=== PATIENT | female | born 1975 | race Caucasian/White ===

== ENCOUNTER 2024-07-09 12:04 | Emergency (ER) | payer OTHER, SELFPAY ==
--- NOTE | ~2024-07-09 | CT_ITS ---
CT brain wo con Ordering provider: Mendez Chan MD History: 49 years Female with . headache . Comparison: None. Technique: CT of the head without contrast. Radiation reduction technique utilized.The dose-length product was 605.33 mGy-cm. FINDINGS: BRAIN PARENCHYMA AND CSF SPACES: No midline shift, mass effect or hemorrhage. The brain parenchyma a nd CSF spaces are otherwise normal. VISUALIZED PARANASAL SINUSES: Well aerated. MASTOIDS: Well aerated. BONES: The bones appear intact. SOFT TISSUES: Visualized nasopharynx is normal. Superficial soft tissues are normal. IMPRESSION: No acute intracranial findings. Reviewed, dictated and finalized at location A.
[2024-07-09 12:18] VITALS: BP 107/42; PULSE 78; RESP 18; O2SAT 100
--- OUTSIDE RECORDS SUMMARY | 2024-07-09 13:39 | XMS_ITS | Encounter Summary ---
[facility] Address [address] [place] [address] Phone Care Team Providers Care Baker Chef Name Role Phone Identified, No Provider Primary Care Provider Un available Reason for Visit * Reason Onset Date Comments Appointment Request 10/04/2020 Encounter Details Date Type Department Care Team ([facility] Contact Info) Description 10/04/2020 Telephone Gen Surgery [facility] [address] [place] [address] Provider, Unknown Appointment Request Social History Tobacco Use Types Packs/Day Years Used Date Smoking Tobacco: Never Smokeless Tobacco: Never Comments No Sex and Gender Information Value Date Recorded Sex Assigned at Not on file Legal Sex Female 4:02 PM CDT Gender Identity Not on file Sexual Orientation Not on file COVID-19 Exposure Response Date Recorded In the last month, have you been in contact with someone who was confirmed or suspected to have Coronavirus / COVID-19? No / Unsure 09/26/2020 8:29 PM CDT documented as of this encounter Miscellaneous Notes * Telephone Encounter - Dixie Pearson - 10/09/2020 9:06 AM CDT Called Pt to schedule hospital F/U. Pt says that she currently isn't feeling well will have to talklater. * Telephone Encounter - Aníbal Peyton - 10/04/2020 4:11 PM CDT ----- Message from Sobia Balbuena RN sent at 10/04/2020 3:58 PM CDT ----- Regarding: Order for JENNIFER MOCTEZUMA Order Specific Information Order: GENERAL SURGERY FOLLOW UP [Custom: [id number]] Order #: [id number]: 1 Priority: Routine Class: Normal(N) Full name of provider to make appointment with: -> Any general surgeron Type of appointment -> Hospital follow up When does appointment need to be scheduled -> as needed Reason for test/appointment -> s/p discharge from hospital for tx of gastritis. Follow up with general surgery for outpatient needs documented in this encounter Plan of Treatment Not on file documented as of this encounter Visit Diagnoses Not on filedocumented in this encounter Additional Health Concerns Infection Onset Date Last Indicated Resolved Time MRSA Comment:Added from external infection. Source: [facility]. 07/11/2023 documented as of this encounter Care Teams Baker Chef Relationship Specialty Start Date End Date Identified, No Provider PCP - General 09/26/20 documented as of this encounter
--- OUTSIDE RECORDS SUMMARY | 2024-07-09 13:39 | XMS_ITS ---
Author Organization [facility] Address [address] [place] [address] Care Team Providers Care Supervisor Shop Name Role Phone ThanhSunil dc Primary Care Provider Peggy Juares Medications Medication SIG (Take, Route, Fr equency, Duration) Notes Start Date End Date Status traZODone HCl 50 MG 1 tablet at bedtime as needed Orally NIGHTLY for 28 days Activ e Problems Problem Type SNOMED Code ICD Code Onset Dates Problem Status W/U Status Risk Notes Problem Insomnia (560461779) Insomnia (G47.00) Active confirmed Encounters Encounter Location Date Provider Diagnosis [facility] [address] [place] [address] 07/05/2024 Peggy Juares Insomnia G47.00 Assessments Encounter Date Diagnosis (ICD Code) Assessment Notes Treatment Notes Treatment Clinical Notes Section Notes 07/05/2024 Insomnia (ICD-10 - G47.00) Plan Of Treatment Medication Medication Name Sig Start Date Stop Date Notes traZODone HCl 50 MG 1 tablet at bedtime as needed Orally NIGHTLY for 28 days Next Appt Details Provider Name:Brad sarkar, 07/11/2024 02:00:00 PM, [address], [place], [address], Provider Name:Eriberto Ruiz , 07/17/2024 02:00:00 PM, [address], [place], [address], Progress Notes * Jennifer MATHIS RDOB: 6 (49 yo F)Acc No.[id number]:07/05/2024 UNLOCKED PROGRESS NOTE Patient: Jennifer JUNG :1975 A ge:49 Y S ex:Female Address:[address] [place] [address], [id number] * Refills Refill traZODone HCl Tablet, 50 MG, Orally, 28, 1 tablet at bedtime as needed, NIGHTLY, 28 days, Refills=0 Subjective: * Chief Complaints: * * Medical History: * Surgical History: * Hospitalization/Major Diagno stic Procedure: * Medications: Objective: * Vitals: * Physical Examination: Assessment: * Assessment: 1. I nsomnia - G47.00 (Primary) Plan: * Treatment: * Procedure Codes: * * Date:
--- OUTSIDE RECORDS SUMMARY | 2024-07-09 13:39 | XMS_ITS | Encounter Summary ---
Author Organization [facility] Address [address] [place] [address] Phone Care Team Providers Care Eight Section Blower Name Role Phone Provider, Not On File Primary Care Provider Unav ailable Encounter Details Date Type Department Care Team (Late st Contact Info) Description 05/22/2024 Results Follow-Up [facility] [address] [place] [address] Culture, Urine Social History Tobacco Use Types Packs/Day Years Used Date Smoking Tobacco: Never Smokeless Tobacco: Never Alcohol Use Standard Drinks/Week Comments Never 0 (1 standard drink = 0.6 oz pur e alcohol) Comments Unknown Sex and Gender Information Value Date Recorded Sex Assigned at Female 05/09/2024 7:10 PM CDT Legal Sex Female 3:14 PM CDT Gender Identity Female 05/10/2024 4:27 PM CDT Sexual Orientation Not on file documented as of this encounter Plan of Treatment Not on file documented as of this encounter Visit Diagnoses Not on filedocumented in this encounter Additional Health Concerns Infection Onset Date Last Indicated Resolved Time MRSA 05/20/2024 05/20/2024 documented as of this encounter Care Teams Eight Section Blower Relationship Specialty Start Date End Date Provider, Not On File [place] PCP - General 10/13/13 documented as of this encounter
--- OUTSIDE RECORDS SUMMARY | 2024-07-09 13:39 | XMS_ITS | Clinical Summary ---
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 12 Tablet Active Additional Information Patient not taking.Reported on 05/19/2024 Encounters Date Type Department Care Team Description 05/22/2024 Results Follow-Up [facility] Emergency Dept. Services [address] [place] [id number] Herlinda Sanchez LPN Culture, Urine 05/19/2024 11:16 PM CDT - 05/20/2024 10:22 AM CDT Emergency [facility] Emergency Dept. Services [address] [place] [id number] Makayla Carlisle MD Methamphetamine abuse Discharge Disposition: Dis/Trans to Psych Hosp/Psych Unit 05/19/2024 Travel 05/10/2024 3:38 PM CDT - 05/10/2024 6:00 PM CDT Emergency [facility] Emergency Dept. Services [address] [place] [address] Makayla Carlisle MD Chronic right shoulder pain Discharge Disposition: Discharged to home or Selfcare 05/10/2024 Travel 05/09/2024 7:10 PM CDT - 05/09/2024 8:31 PM CDT Emergency [facility] Emergency Dept. Services [address] [place] [address] Discharge Disposition: Left Against Medical Advice 05/09/2024 Travel from Last 3 Months Social History Tobacco Use Types Packs/Day Years Used Date Smoking Tobacco: Never Smokeless Tobacco: Never Tobacco Cessation:Counseling Given: Not Answered Alcohol Use Standard Drinks/Week Comments Never 0 (1 standard drink = 0.6 oz pur e alcohol) Comments No Sex and Gender Information Value Date Recorded Sex Assigned at Female 05/09/2024 7:10 PM CDT Legal Sex Female 3:14 PM CDT Gender Identity Female 05/10/2024 4:27 PM CDT Sexual Orientation Not on file Last Filed Vital Signs Vital Sign Reading Time Taken Comments Blood Pressure 102/62 05/20/2024 10:20 AM CDT Pulse 69 05/20/2024 10:20 AM CDT Temperature 36.6 C (97.8 F) 05/20/2024 8:47 AM CDT Respiratory Rate 16 05/20/2024 10:20 AM CDT Oxygen Saturation 98% 05/20/2024 10:20 AM CDT Inhaled Oxygen Concentration - - Weight 52.2 kg (115 lb) 05/19/2024 9:36 PM CDT Height 162.6 cm (5' 4 ) 05/19/2024 9:36 PM CDT Body Mass Index 19.74 05/19/2024 9:36 PM CDT Plan of Treatment Health Maintenance Due Date Last Done Comments Mammogram 1975 Hepatitis B Immunization (1 of 3 - 19+ 3-dose series) 01/28/1995 Discussion re Starting/Frequ ency of Mammograms 2016 Colonoscopy 01/28/2021 SARS-COV-2 Immunization () 10/17/2023 Colorectal Cancer Screening 03/18/2024 Influenza Immunization (Seas on Ended) 2024 03/01/2013 Immunochemical Fecal Occult Blood 01/28/2026 025 Respiratory Syncytial Virus (RSV) Immunization (Adult) (1 - 1-dose 75+ series) 01/28/2051 DTaP/Tdap/Td Immunization Discontinued 08/30/2022 TdaP Immunization Completed 08/30/2022 Hepatitis C Virus (HCV) Screening Completed 024 Meningococcal Immunization (ACWY) Aged Out No longer eligible based on patient's age to complete this topic Pneumococcal Immunization Combined Aged Out No longer eligible based on patient's age to complete this topic Rotavirus Immunization Aged Out No lo nger eligible based on patient's age to complete this topic Procedures Procedure Name Priority Date/Time Associated Diagnosis Comments EKG 12 LEAD STAT 05/20/2024 12:53 AM CDT QUINN TOP TUBE STAT 05/20/2024 12:19 AM CDT BLUE TOP TUBE STAT 05/20/2024 12:19 AM CDT CBC WITH AUTO DIFFERENTIAL STAT 05/20/2024 12:19 AM CDT EXTRA TUBES STAT 05/20/2024 12:19 AM CDT SALICYLATE LEVEL STAT 05/20/2024 12:1 9 AM CDT ACETAMINOPHEN (TYLENOL) STAT 05/20/2024 12:19 AM CDT THYROID STIMULATING HORMONE (TSH) STAT 05/20/2024 12:19 AM CDT MAGNESIUM (MG) STAT 05/20/2024 12:19 AM CDT ETHYL ALCOHOL (ETHANOL) STAT 05/20/2024 12:19 AM CDT CMP (COMPREHENSIVE METABOLIC PANEL) STAT 05/20/2024 12:19 AM CDT COMPLETE BLOOD COUNT (CBC) WITH DIFF STAT 05/20/2024 12:19 AM CDT ID NOW COVID 19 ELDA ([facility]) STAT 05/20/2024 12:13 AM CDT URINALYSIS (UA) MICROSCOPIC ONLY STAT 05/20/2024 12:05 AM CDT URINALYSIS REFLEX IF INDICATED BY ABNORMAL RESULTS STAT 05/20/2024 12:05 AM CDT URINE DRUG SCREEN STAT 05/20/2024 12: 05 AM CDT CULTURE, URINE STAT 05/20/2024 12:05 AM CDT XR LUMBAR SPINE 2 OR 3 VIEWS STAT 05/10/2024 4:38 PM CDT XR SHOULDER COMPLETE RIGHT STAT 05/10/2024 4:34 PM CDT URINALYSIS (UA) MICROSCOPIC ONLY STAT 05/10/2024 4:33 PM CDT URINE DRUG SCREEN STAT 05/10/2024 4:3 3 PM CDT URINALYSIS REFLEX IF INDICATED BY ABNORMAL RESULTS STAT 05/10/2024 4:33 PM CDT from Last 3 Months Results * EKG 12 LEAD (05/20/2024 12:53 AM CDT) 05/20/2024 12:5 3 AM CDT Impressions EXTERNAL EKG - 05/21/2024 2:16 [place] [address] Test Date: 2024-05-20 Pat Name: JENNIFER MOCTEZUMA Department: Room: [facility] Gender: F Diet Attendant: MIS : 1975 Requested By: MAKAYLA CARLISLE Order Number: [id number] Reading MD: Cruz Steven MD Measurements Intervals Edwards Rate: 60 P: 84 NH: 141 QRS: 74 QRSD: 94 T: 63 QT: 441 QTc: 441 Interpretive Statements Sinus rhythm Consider left ventricular hypertrophy Electronically Signed On 05-21-2024 14:12:43 CDT by Cruz Steven MD Narrative Procedure Note Cruz Steven MD - 05/21/2024 IMPRESSION: [facility] [address] [place] [address] Test Date: 2024-05-20 Pat Name: JENNIFER MOCTEZUMA Department: Room: [facility] Gender: F Diet Attendant: TB : 1975 Requested By: MAKAYLA CARLISLE Order Number: [id number] Reading MD: Cruz Steven MD Measurements Intervals Edwards Rate: 60 P: 84 NH: 141 QRS: 74 QRSD: 94 T: 63 QT: 441 QTc: 441 Interpretive Statements Sinus rhythm Consider left ventricular hypertrophy Electronically Signed On 05-21-2024 14:12:43 CDT by Cruz Steven MD us Makayla Carlisle MD IMG ECG ORDERABLES Final Resul t Performing Organization Address [facility] de Phone Number EXTERNAL EKG * Quinn Top Tube (05/20/2024 12:19 AM CDT) Blood No Phlebotomy Charged / Unknown 05/20/2024 12:19 AM CDT 05/20/2024 12:22 AM CDT us Makayla Carlisle MD CHEMISTRY ORDERABLES Final Res ult Performing Organization Address [facility]/[place] Co de Phone Number [facility] [address] [place] [address], * Blue Top Tube (05/20/2024 12:19 AM CDT) Blood No Phlebotomy Charged / Unknown 05/20/2024 12:19 AM CDT 05/20/2024 12:22 AM CDT us Makayla Carlisle MD HEMATOLOGY ORDERABLES Final Re sult Performing Organization Address [facility] de Phone Number [facility] [address] [place] [address], [place] [phone] * (ABNORMAL) CBC with Auto Differential (05/20/2024 12:[address] [facility]) [facility] Signature WBC 6.85 3.88 - 10.35 10(3)/mcL 05/20/2024 12:29 AM [facility] RBC 3.72(L) 3.78 - 5.29 10(6)/mcL 05/20/2024 12:29 AM [facility] HEMOGLOBIN (HGB) 11.2(L) 12.0 - 16.0 g/dL 05/20/2024 12:29 AM [facility] HEMATOCRIT (HCT) 34.7(L) 37.0 - 47.0 % 05/20/2024 12:29 AM [facility] MCV 93.3 82.0 - 100.0 fL 05/20/2024 12:29 AM [facility] MCH 30.1 25.9 - 32.7 pg 05/20/2024 12:29 AM [facility] MCHC 32.3 31.0 - 34.1 g/dL 05/20/2024 12:29 AM [facility] RDW 12.9 11.8 - 15.7 % 05/20/2024 12:29 AM [facility] PLATELET COUNT 192 150 - 450 10(3)/mcL 05/20/2024 12:29 AM [facility] MPV 10.5 8.7 - 12.2 fL 05/20/2024 12:29 AM [facility] NEUTROPHILS 59.7 40.0 - 75.0 % 05/20/2024 12:29 AM [facility] IMMATURE GRANULOCYTE % 0.3 0.0 - 2.0 % 05/20/2024 12:29 AM [facility] LYMPHOCYTES 30.5 20.0 - 40.0 % 05/20/2024 12:29 AM [facility] MONOCYTES 7.2 0.0 - 10.0 % 05/20/2024 12:29 AM [facility] EOSINOPHILS 1.9 0.0 - 4.0 % 05/20/2024 12:29 AM CDT [facility] BASOPHILS 0.4 0.0 - 1.0 % 05/20/2024 12:29 AM CDT [facility] ABSOLUTE NEUTROPHILS 4.09 1.50 - 8.00 10(3)/mcL 05/20/2024 12:29 AM CDT [facility] Blood Venipuncture / Unknown 05/20/2024 12:19 AM CDT 05/20/2024 12:22 AM CDT us Makayla Carlisle MD HEMATOLOGY ORDERABLES Final Re sult Performing Organization Address [facility]/ZIP Co de Phone Number [facility] [address] [address], [place] [phone] * (ABNORMAL) Acetaminophen Level (05/20/2024 12:19 AM CDT) ACETAMINOPHEN <10.0(L) 10.0 - 30.0 mcg/mL 05/20/2024 12:39 AM CDT [facility] Blood Venipuncture / Unknown 05/20/2024 12:19 AM CDT 05/20/2024 12:22 AM CDT us Makayla Carlisle MD CHEMISTRY ORDERABLES Final Res ult Performing Organization Address [facility]/ZIP Co de Phone Number [facility] [address] [place] [address], [place] [phone] * Thyroid Stimulating Hormone (TSH) (05/20/2024 12:19 AM CDT) TSH 0.837 0.465 - 4.680 mIU/L 05/20/2024 1:08 AM CDT [facility] Blood Venipuncture / Unknown 05/20/2024 12:19 AM CDT 05/20/2024 12:22 AM CDT us Makayla Carlisle MD CHEMISTRY ORDERABLES Final Res ult Performing Organization Address City/[facility]/[place] Co de Phone Number [facility] [address] [place] [address], [place] [phone] * (ABNORMAL) Salicylate Level (05/20/2024 12:19 AM CDT) SALICYLATE 2.8(L) 10.0 - 20.0 mg/dL 05/20/2024 12:42 AM CDT [facility] Blood Venipuncture / Unknown 05/20/2024 12:19 AM CDT 05/20/2024 12:22 AM CDT Makayla Carlisle MD CHEMISTRY ORDERABLES Final Res ult Performing Organization Address [facility] de Phone Number [facility] [address] [place] [address], [place] [phone] * Magnesium (MG) (05/20/2024 12:19 AM CDT) MAGNESIUM 2.2 1.6 - 2.3 mg/dL 05/20/2024 12:39 AM CDT [facility] Blood Venipuncture / Unknown 05/20/2024 12:19 AM CDT 05/20/2024 12:22 AM CDT Makayla Carlisle MD CHEMISTRY ORDERABLES Final Res ult Performing Organization Address [facility]/[place] Co de Phone Number [facility] [address] [address], [place] [phone] * ETOH Level (05/20/2024 12:19 AM CDT) ETHANOL <10 0 - 79 mg/dL 05/20/2024 12:42 AM CDT [facility] ETHANOL <0.010 0.000 - 0.079 G/dL 05/20/2024 12:42 AM CDT [facility] Blood Venipuncture / Unknown 05/20/2024 12:19 AM CDT 05/20/2024 12:22 AM CDT us Makayla Carlisle MD CHEMISTRY ORDERABLES Final Res ult [facility] [address] [place] [address], [place] [phone] * (ABNORMAL) CMP (05/20/2024 12:19 AM CDT) SODIUM 139 137 - 145 mmol/L 05/20/2024 12:39 AM [facility] POTASSIUM 3.6 3.5 - 5.1 mmol/L 05/20/2024 12:39 AM [facility] CHLORIDE 108(H) 98 - 107 mmol/L 05/20/2024 12:39 AM [facility] CO2, VENOUS 22 22 - 30 mmol/L 05/20/2024 12:39 AM [facility] GLUCOSE 83 70 - 106 mg/dL 05/20/2024 12:39 AM [facility] BUN 14 7 - 17 mg/dL 05/20/2024 12:39 AM [facility] CREATININE, BLOOD 0.60 0.52 - 1.04 mg/dL 05/20/2024 12:39 AM [facility] ALKALINE PHOSPHATASE 102 38 - 126 U/L 05/20/2024 12:39 AM [facility] SGPT (ALT) 21 1 - 34 U/L 05/20/2024 12:39 AM [facility] SGOT (AST) 26 14 - 36 U/L 05/20/2024 12:39 AM [facility] ALBUMIN 3.9 3.5 - 5.0 g/dL 05/20/2024 12:39 AM [facility] T BILI 0.5 0.2 - 1.3 mg/dL 05/20/2024 12:39 AM [facility] TOTAL PROTEIN 6.6 6.3 - 8.2 g/dL 05/20/2024 12:39 AM [facility] CALCIUM 8.6 8.4 - 10.2 mg/dL 05/20/2024 12:39 AM [facility] ANION GAP 9.0 6.0 - 16.0 mmol/L 05/20/2024 12:39 AM [facility] BUN/CREATININE RATIO 23 7 - 30 ratio 05/20/2024 12:39 AM [facility] A/G RATIO 1.4 0.9 - 2.3 05/20/2024 12:39 AM [facility] GLOBULIN 2.7 2.2 - 3.9 g/dL 05/20/2024 12:39 AM [facility] GFR, ESTIMATED >60 >60 05/20/2024 12:39 AM [facility] OSMOLALITY 277 273 - 304 mOsm/kg 05/20/2024 12:39 AM [facility] Blood Venipuncture / Unknown 05/20/2024 12:19 AM CDT 05/20/2024 12:22 AM CDT Makayla Carlisle MD CHEMISTRY ORDERABLES Final Res ult [facility] [address] [address], [place] [phone] * COVID-19 ID Now ELDA (05/20/2024 12:13 AM CDT) COVID 19 ELDA NOT DETECTED Negative 05/20/2024 12:44 AM T [facility] Nasopharyngeal Non-Phlebotomy Collection / Unknown 05/20/2024 12:13 AM CDT 05/20/2024 12:30 AM CDT Makayla Carlisle MD IMMUNOLOGY ORDERABLES Final Re sult [facility] [address] [place] [address], [place] [phone] * (ABNORMAL) Urinalysis w/ Reflex (05/20/2024 12:05 AM CDT) Only the most recent of2 resultswithin the time period is included. URINALYSIS COLOR Yellow Yellow, Light Yellow 05/20/2024 12:39 AM [facility] URINALYSIS CLARITY Clear Clear 05/20/2024 12:39 AM [facility] URINE PH 5.5 5.0 - 8.0 05/20/2024 12:39 AM [facility] SPECIFIC GRAVITY >=1.030(H) 1.005 - 1.020 05/20/2024 12:39 AM [facility] PROTEIN, RANDOM URINE 1+(A) Negative 05/20/2024 12:39 AM [facility] URINE GLUCOSE, QUAL Negative Negative 05/20/2024 12:39 AM [facility] URINE KETONES 2+(A) Negative 05/20/2024 12:39 AM [facility] URINE BLOOD Trace-Intact (A) Negative anish/ul 05/20/2024 12:39 AM [facility] NITRITE Negative Negative 05/20/2024 12:39 AM [facility] URINE BILIRUBIN Negative Negative 12:39 AM [facility] UROBILINOGEN 0.2 0.2 , 1.0 , Normal mg/dL 05/20/2024 12:39 AM [facility] WBC ESTERASE 2+(A) Negative 05/20/2024 12:39 AM [facility] Urine URINE SPECIMEN OBTAINED BY CLEAN CATCH PROCEDURE / Unknown Non-Phlebotomy Collection / Unknown 05/20/2024 12:05 AM T 05/20/2024 12:30 AM CDT us Makayla Carlisle MD URINE ORDERABLES Final Result [facility] [address] [address], [place] [phone] * (ABNORMAL) Urinalysis (UA) Microscopic Only (05/20/2024 12:05 AM CDT) Only the most recent of2 resultswithin the time period is included. URINE RBC'S 0-2(A) None /hpf 05/20/2024 12:46 AM CDT [facility] WBC (Urine) 11-25(A) None /hpf 05/20/2024 12:46 AM CDT [facility] BACTERIA, URINE 2+(A) None Seen /hpf 05/20/2024 12:46 AM CDT [facility] SQUAMOUS EPITHELELIAL CELLS 6-10(A) None /hpf 05/20/2024 12:46 AM CDT [facility] Urine URINE SPECIMEN OBTAINED BY CLEAN CATCH PROCEDURE / Unknown Non-Phlebotomy Collection / Unknown 05/20/2024 12:05 AM CDT 05/20/2024 12:30 AM CDT us Makayla Carlisle MD URINE ORDERABLES Final Result Performing Organization Address City/State/[place] Co de Phone Number [facility] [address] [facility] [place] [address], * Culture, Urine (05/20/2024 12:05 AM CDT) CULTURE RESULTS METHICILLIN RESISTANT STAPHYLOCOCCUS AUREUS [facility] [place] DXM 1040 05/22/2024 11:20 AM CDT [facility] Urine URINE SPECIMEN OBTAINED BY CLEAN CATCH PROCEDURE / Unknown Non-Phlebotomy Collection / Unknown 05/20/2024 12:05 AM CDT 05/20/2024 12:30 AM CDT Narrative Organism Antibiotic Method Susceptibility Methicillin Resistant Staph aureus Amoxicillin/clavulanate [facility] [place] DXM 1040 >4/2 mcg/ml: Resistant Methicillin Resistant Staph aureus Ampicillin [facility] [place] [facility] 1040 >8 mcg/ml: Resistant Methicillin Resistant Staph aureus Ampicillin/sulbactam [facility] [place] [facility] 1040 >16/8 mcg/ml: Resistant Methicillin Resistant Staph aureus Cefazolin [facility] [place] [facility] 1040 >16 mcg/ml: Resistant Methicillin Resistant Staph aureus Ceftriaxone [facility] [place] [facility] 1040 >32 mcg/ml: Resistant Methicillin Resistant Staph aureus Ciprofloxacin [facility] [place] [facility] 1040 >2 mcg/ml: Resistant Methicillin Resistant Staph aureus Daptomycin [facility] [place] [facility] 1040 1 mcg/ml: Susceptible Methicillin Resistant Staph aureus Gentamicin [facility] [place] [facility] 1040 <=1 mcg/ml: Susceptible Methicillin Resistant Staph aureus Imipenem [facility] [place] 1040 <=4 mcg/ml: Resistant Methicillin Resistant Staph aureus Levofloxacin [facility] [place] 1040 4 mcg/ml: Intermediate Methicillin Resistant Staph aureus Meropenem [facility] [place] 1040 8 mcg/ml: Resistant Methicillin Resistant Staph aureus Nitrofurantoin [facility] [place] [facility] 1040 <=32 mcg/ml: Susceptible Methicillin Resistant Staph aureus Oxacillin [facility] 1040 >2 mcg/ml: Resistant Methicillin Resistant Staph aureus Penicillin G [facility] [place] 1040 >8 mcg/ml: Resistant Methicillin Resistant Staph aureus Rifampin [facility] [place] 1040 <=1 mcg/ml: Susceptible Methicillin Resistant Staph aureus Tetracycline [facility] [place] [facility] 1040 <=1 mcg/ml: Susceptible Methicillin Resistant Staph aureus Trimeth/Sulfamethoxazol e [facility] [place] 1040 <=0.5/9.5 mcg/ml: Susceptible Methicillin Resistant Staph aureus Vancomycin [facility] 1040 2 mcg/ml: Susceptible Makayla Carlisle MD MICROBIOLOGY - GENERAL ORDERAB LES Final Result Performing Organization Address [facility]/State/ZIP Co de Phone Number [facility] [address] [facility] [place] [address], * (ABNORMAL) Urine Drug Screen (05/20/2024 12:05 AM CDT) Only the most recent of2 resultswithin the time period is included. [facility] UR PHENCYCLIDINE NEGATIVE NEGATIVE 05/21/19 12:39 AM CDT [facility] UR BENZODIAZEPINES NEGATIVE NEGATIVE 2024 12:39 AM CDT [facility] UR COCAINE METABOLITE NEGATIVE NEGATIVE 05/20/2024 12:39 AM CDT [facility] UR AMPHETAMINE POSITIVE(A) NEGATIVE 12:39 AM CDT [facility] UR CANNABINOID NEGATIVE NEGATIVE 05/20/2024 12:39 AM CDT [facility] UR OPIATES NEGATIVE NEGATIVE 05/20/2024 12:39 AM CDT [facility] UR BARBITURATE NEGATIVE NEGATIVE 05/20/2024 12:39 AM CDT [facility] UR TRICYCLIC ANTIDEPRESS SCREEN NEGATIVE NEGATIVE 05/20/2024 12:39 AM CDT [facility] UR ECSTASY POSITIVE(A) NEGATIVE 05/20/2024 12:39 AM CDT [facility] UR OXYCODONE NEGATIVE NEGATIVE 05/20/2024 12:39 AM CDT [facility] UR PROPOXYPHENE NEGATIVE NEGATIVE 12:39 AM CDT [facility] Urine Non-Phlebotomy Collection / Unknown 05/20/2024 12:05 AM CDT 05/20/2024 12:30 AM CDT us Makayla Carlisle MD URINE ORDERABLES Final Result [facility] [address] [facility] [place] [address], * XR LUMBAR SPINE 2 OR 3 VIEWS (05/10/2024 4:38 PM CDT) Anatomical Region Laterality Modality Spine, L-spine N/A Computed Radiogr aphy 05/10/2024 5:07 PM CDT Narrative 05/10/2024 5:07 PM CDT EXAM DESCRIPTION: XR SHOULDER COMPLETE RIGHT; XR LUMBAR SPINE 2 OR 3 VIEWS REASON FOR STUDY: c/o low back pain and right shoulder pain. Reports that she has a hx of bulging disc and torn rotator cuff from a work related injury that happened in February. Pt had a fall 4 days ago that has increased her pain to lower back and right shoulder. Duration: 4 days TECHNIQUE: There are 4 radiographic view(s) of the right shoulder . COMPARISON: No prior FINDINGS: Right shoulder: Normal mineralization. No acute fracture or dislocation. Mild osteoarthritis glenohumeral joint. AC joint is intact. Adjacent ribs and soft tissues are unremarkable. No pneumothorax. Lumbar spine: There are 5 dyh-ucw-hycexbv lumbar vertebral bodies. There is moderate multilevel degenerative endplate change. Smoothly marginated depression superior endplate L2 and L3 favors more chronic etiology given the smooth margins. If there is focal pain over these areas, consider CT given the recent fall. Mild multilevel disc space narrowing lower thoracic spine and lumbar spine. Mild facet arthropathy lower lumbar spine. Surgical clips are seen of the upper abdomen. Surgical sutures are seen of the medial aspect of the right lower abdomen. Pelvic phleboliths. IMPRESSION: No acute fracture right shoulder. Mild osteoarthritis glenohumeral joint. Smoothly marginated depression superior endplate L2 and L3 favors more chronic etiology given the smooth margins. If there is focal pain over these areas, consider CT given the recent fall. Mild spondylosis lumbar spine otherwise. THIS IS AN ELECTRONICALLY VERIFIED FINAL REPORT 05/10/2024 5:07 PM - Electronically signed by Conner Dalton M.D. MJ: DOMINICK Report ID: [id number] Reading Location: [id number] Procedure Note Conner Dalton MD - 05/10/2024 EXAM DESCRIPTION: XR SHOULDER COMPLETE RIGHT; XR LUMBAR SPINE 2 OR 3 VIEWS REASON FOR STUDY: c/o low back pain and right shoulder pain. Reports that she has a hx of bulging disc and torn rotator cuff from a work related injury that happened in February. Pt had a fall 4 days ago that has increased her pain to lower back and right shoulder. Duration: 4 days TECHNIQUE: There are 4 radiographic view(s) of the right shoulder . COMPARISON: No prior FINDINGS: Right shoulder: Normal mineralization. No acute fracture or dislocation. Mild osteoarthritis glenohumeral joint. AC joint is intact. Adjacent ribs and soft tissues are unremarkable. No pneumothorax. Lumbar spine: There are 5 czx-zuy-fnylwen lumbar vertebral bodies. There is moderate multilevel degenerative endplate change. Smoothly marginated depression superior endplate L2 and L3 favors more chronic etiology given the smooth margins. If there is focal pain over these areas, consider CT given the recent fall. Mild multilevel disc space narrowing lower thoracic spine and lumbar spine. Mild facet arthropathy lower lumbar spine. Surgical clips are seen of the upper abdomen. Surgical sutures are seen of the medial aspect of the right lower abdomen. Pelvic phleboliths. IMPRESSION: No acute fracture right shoulder. Mild osteoarthritis glenohumeral joint. Smoothly marginated depression superior endplate L2 and L3 favors more chronic etiology given the smooth margins. If there is focal pain over these areas, consider CT given the recent fall. Mild spondylosis lumbar spine otherwise. THIS IS AN ELECTRONICALLY VERIFIED FINAL REPORT 05/10/2024 5:07 PM - Electronically signed by Conner Dalton M.D. MJ: DOMINICK Report ID: [id number] Reading Location: [id number] us Makayla Carlisle MD IMG DIAGNOSTIC ORDERABLES Jinny l Result * XR SHOULDER COMPLETE RIGHT (05/10/2024 4:34 PM CDT) Anatomical Region Laterality Modality UPPER EXTREMITY, shoulder Right Comput ed Radiography 05/10/2024 5:07 PM CDT Narrative 05/10/2024 5:07 PM CDT EXAM DESCRIPTION: XR SHOULDER COMPLETE RIGHT; XR LUMBAR SPINE 2 OR 3 VIEWS REASON FOR STUDY: c/o low back pain and right shoulder pain. Reports that she has a hx of bulging disc and torn rotator cuff from a work related injury that happened in February. Pt had a fall 4 days ago that has increased her pain to lower back and right shoulder. Duration: 4 days TECHNIQUE: There are 4 radiographic view(s) of the right shoulder . COMPARISON: No prior FINDINGS: Right shoulder: Normal mineralization. No acute fracture or dislocation. Mild osteoarthritis glenohumeral joint. AC joint is intact. Adjacent ribs and soft tissues are unremarkable. No pneumothorax. Lumbar spine: There are 5 txo-itg-xuuavmi lumbar vertebral bodies. There is moderate multilevel degenerative endplate change. Smoothly marginated depression superior endplate L2 and L3 favors more chronic etiology given the smooth margins. If there is focal pain over these areas, consider CT given the recent fall. Mild multilevel disc space narrowing lower thoracic spine and lumbar spine. Mild facet arthropathy lower lumbar spine. Surgical clips are seen of the upper abdomen. Surgical sutures are seen of the medial aspect of the right lower abdomen. Pelvic phleboliths. IMPRESSION: No acute fracture right shoulder. Mild osteoarthritis glenohumeral joint. Smoothly marginated depression superior endplate L2 and L3 favors more chronic etiology given the smooth margins. If there is focal pain over these areas, consider CT given the recent fall. Mild spondylosis lumbar spine otherwise. THIS IS AN ELECTRONICALLY VERIFIED FINAL REPORT 05/10/2024 5:07 PM - Electronically signed by Conner Dalton M.D. MJ: DOMINICK Report ID: [id number] Reading Location: [id number] Procedure Note Conner Dalton MD - 05/10/2024 EXAM DESCRIPTION: XR SHOULDER COMPLETE RIGHT; XR LUMBAR SPINE 2 OR 3 VIEWS REASON FOR STUDY: c/o low back pain and right shoulder pain. Reports that she has a hx of bulging disc and torn rotator cuff from a work related injury that happened in February. Pt had a fall 4 days ago that has increased her pain to lower back and right shoulder. Duration: 4 days TECHNIQUE: There are 4 radiographic view(s) of the right shoulder . COMPARISON: No prior FINDINGS: Right shoulder: Normal mineralization. No acute fracture or dislocation. Mild osteoarthritis glenohumeral joint. AC joint is intact. Adjacent ribs and soft tissues are unremarkable. No pneumothorax. Lumbar spine: There are 5 [id number] lumbar vertebral bodies. There is moderate multilevel degenerative endplate change. Smoothly marginated depression superior endplate L2 and L3 favors more chronic etiology given the smooth margins. If there is focal pain over these areas, consider CT given the recent fall. Mild multilevel disc space narrowing lower thoracic spine and lumbar spine. Mild facet arthropathy lower lumbar spine. Surgical clips are seen of the upper abdomen. Surgical sutures are seen of the medial aspect of the right lower abdomen. Pelvic phleboliths. IMPRESSION: No acute fracture right shoulder. Mild osteoarthritis glenohumeral joint. Smoothly marginated depression superior endplate L2 and L3 favors more chronic etiology given the smooth margins. If there is focal pain over these areas, consider CT given the recent fall. Mild spondylosis lumbar spine otherwise. THIS IS AN ELECTRONICALLY VERIFIED FINAL REPORT 05/10/2024 5:07 PM - Electronically signed by Conner Dalton M.D. 

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
--- OUTSIDE RECORDS SUMMARY | 2024-07-09 13:39 | XMS_ITS | Clinical Summary ---
[facility] Address [address] [place] [address] Phone Care Team Providers Care Tire Trucker Name Role Phone Identified, No Provider Primary Care Provider Un available Allergies Active Allergy Reactions Criticality Noted Date Comments Conjugated Estrogens Hives High 01/22/2018 Dexamethasone Headache 08/04/2015 Flu Vaccine 2010 (36 Mos+)(Pf) Other; see comment 01/22/2018 Facial numbness, SOB Gabapentin Other; see comment,Loss of Consciousness High 06/21/2012 Trembling, shakiness Ketorolac Itching Low 04/16/2014 Levetiracetam Other; see comment High 04/10/2013 States it increases her anger & gives her cold-like Sx Nortriptyline Headache,Other; see comment 06/21/2012 Shaky, whole body gets flushed Sulfamethoxazole-Trime thoprim Rash,Shortness of Breath High 08/13/2013 Tramadol Itching,Rash Low 05/09/2015 Venlafaxine Other; see comment 06/21/2012 Shaky and trembling Venom-Honey Bee Anaphylaxis High 11/07/2019 Medications * This document contains information received from the source organization and may not represent a complete record from that organization. ondansetron (ZOFRAN ODT) 4 mg rapid dissolve tablet Take 4 mg by mouth every 6 hours as needed for nausea or vomiting 1 Active pantoprazole (PROTONIX) 40 mg tabletIndications :Recurrent abdominal pain,Gastritis and duodenitis Take 1 tablet (40 mg total) by mouth 2 (two) times a day before meals 60 tablet 1 Active metoclopramide HCl (REGLAN) 10 mg tabletIndications :Recurrent abdominal pain,Gastritis and duodenitis Take 1 tablet (10 mg total) by mouth every 6 hours as needed for nausea 15 tablet 1 Active FLUoxetine (PROZAC) 20 mg capsuleIndication s:Mood disorder (CMS-HCC) Take 1 capsule (20 mg total) by mouth every day 14 capsule 1 Active OLANZapine (ZYPREXA) 7.5 mg tabletIndications :Mood disorder (CMS-HCC) Take 1 tablet (7.5 mg total) by mouth at bedtime 14 tablet 1 Active hydrOXYzine pamoate (VISTARIL) 25 mg capsuleIndication s:Mood disorder (CMS-HCC) Take 1 capsule (25 mg total) by mouth in the morning and at bedtime 20 capsule 1 Active polyethylene glycol oral powder packet (MIRALAX) 17 gram packetIndications :Constipation, unspecified constipation type Take 17 g by mouth every day as needed (for constipation) 30 packet 5 Active docusate sodium (COLACE) 100 mg capsuleIndication s:Constipation, unspecified constipation type Take 1 capsule (100 mg total) by mouth every day as needed (Constipation ) 15 capsule 5 Active Active Problems Problem Noted Date Diagnosed Date Recurrent abdominal pain 09/27/2020 Nausea and vomiting, intract ability of vomiting not specified, unspecified vomiting type 09/27/2020 Intractable epigastric abdominal pain SBO (small bowel obstruction) SMAS (superior mesenteric artery syndrome) Epigastric pain Hematemesis, presence of nausea not specified Intractable abdominal pain Gastritis and duodenitis Gastritis without bleeding, unspecified chronicity, unspecified gastritis type Gastroparesis Encounters Date Type Department Care Team Description 05/27/2024 3:47 PM CDT - 05/27/2024 10:22 PM CDT Emergency Emergency Room [address] [place] [id number] Gt Sutherland MD Constipation, unspecified constipation type (Primary Dx) Discharge Disposition: Discharged to Home or Self Care 05/25/2024 10:06 AM CDT - 05/25/2024 3:04 PM CDT Emergency Emergency Room [address] [place] [id number] Tahir Young MD Recurrent abdominal pain (Primary Dx) Discharge Disposition: Discharged to Home or Self Care from Last 3 Months Social History Tobacco Use Types Packs/Day Years Used Date Smoking Tobacco: Never Smokeless Tobacco: Never Comments No Sex and Gender Information Value Date Recorded Sex Assigned at Not on file Legal Sex Female 4:02 PM CDT Gender Identity Not on file Sexual Orientation Not on file Last Filed Vital Signs Vital Sign Reading Time Taken Comments Blood Pressure 106/65 05/27/2024 10:15 PM CDT Pulse 82 05/27/2024 10:15 PM CDT Temperature 37.2 C (98.9 F) 05/27/2024 10:15 PM CDT Respiratory Rate 16 05/27/2024 10:15 PM CDT Oxygen Saturation 99% 05/27/2024 10:15 PM CDT Inhaled Oxygen Concentration - - Weight 53.3 kg (117 lb 6.4 oz) 10/04/2020 3:57 A M CDT Height 162.6 cm (5' 4 ) 09/27/2020 5:00 PM CDT Body Mass Index 20.15 09/27/2020 5:00 PM CDT Plan of Treatment Health Maintenance Due Date Last Done Comments Diagnostic Colonoscopy 1976 MMR Vaccines (1 of 1 - Standard series) 01/28/1977 Depression Screening 1988 Hepatitis B Vaccines (1 of 3 - 19+ 3-dose series) 01/28/1995 Lipid Panel 1996 Breast Cancer Screening 2016 CT Colonography 01/28/2021 Colorectal Cancer Screening 01/28/2021 FIT-DNA (Cologuard) 01/28/2021 Fecal Immunochemical Testing (FIT) 01/28/2021 Fecal Occult Blood (FOBT) 01/28/2021 Flexible Sigmoidoscopy 01/28/2021 Screening Colonoscopy 01/28/2021 COVID-19 Vaccine ( season) 2023 Influenza Vaccine (Season Ended) 2024 03/01/2013 Screening for Diabetes 05/28/2027 , 05/25/2024, 10/04/2020, Additional history exists DTaP/Tdap/Td Vaccines (2 - Td or Tdap) 08/30/2032 08/30/2022 HIB Vaccines Aged Out No longer eligi ble based on patient's age to complete this topic HPV Vaccines Aged Out No longer eligi ble based on patient's age to complete this topic Hepatitis A Vaccines Aged Out No long er eligible based on patient's age to complete this topic IPV Vaccines Aged Out No longer eligi ble based on patient's age to complete this topic Meningococcal B Vaccine Aged Out No l onger eligible based on patient's age to complete this topic Meningococcal Vaccine (ACWY) Aged Out No longer eligible based on patient's age to complete this topic Pneumococcal Vaccines Aged Out No hung michael eligible based on patient's age to complete this topic Rotavirus Vaccines Aged Out No longer eligible based on patient's age to complete this topic Procedures Procedure Name Priority Date/Time Associated Diagnosis Comments XR KUB UPRIGHT ONLY (INCLUDE DIAPHRAGM) STAT 05/27/2024 6:05 PM CDT URINE , POCT STAT 05/27/2024 4:46 PM CDT TROPONIN, HIGH SENSITIVITY STAT 05/27/2024 4:45 PM CDT LIPASE STAT 05/27/2024 4:45 PM CDT COMPREHENSIVE METABOLIC PANEL STAT 05/27/2024 4:45 PM CDT CBC W/DIFF STAT 05/27/2024 4:45 PM CDT UA WITH REFLEX CULTURE IF INDICATED STAT 05/27/2024 4:45 PM CDT LACTIC ACID, ISTAT (POC) Routine 05/27/2024 4:43 PM CDT ECG 12 LEAD STAT 05/27/2024 4:[address] ABDOMEN / PELVIS WITH CONTRAST STAT 05/25/2024 12:52 PM CDT LIPASE STAT 05/25/2024 10:12 AM CDT COMPREHENSIVE METABOLIC PANEL STAT 05/25/2024 10:12 AM CDT CBC W/DIFF STAT 05/25/2024 10:12 AM CDT from Last 3 Months Results * XR KUB UPRIGHT ONLY (INCLUDE DIAPHRAGM) (05/27/2024 6:05 PM CDT) Anatomical Region Laterality Modality Abdomen N/A Digital Radiogra phy 05/27/2024 5:50 PM CDT Narrative 05/27/2024 6:31 PM CDT Accession Exam Completed Date/Time [id number] XR KUB UPRIGHT ONLY (INCLUDE DIAPHRAGM) 05/27/2024 18:05 Requesting: GT BLACKWELL Upright view of the abdomen HISTORY: Abdominal pain COMPARISON: CT 05/25/2024 FINDINGS: No gas-filled, dilated loops of bowel. No visible renal stones. Slightly increased volume of stool in the left abdomen and pelvis. IMPRESSION: Moderate stool burden Electronically Signed and Authenticated by Chai De Los Santos MD 05/27/2024 18:31 Procedure Note Chai De Los Santos MD - 05/27/2024 Accession Exam CompletedDate/Time [id number] XR KUB UPRIGHT ONLY (INCLUDE DIAPHRAGM) 518:05 Requesting: GT BLACKWELL Upright view of the abdomen HISTORY: Abdominal pain COMPARISON: CT 05/25/2024 FINDINGS: No gas-filled, dilated loops of bowel. No visible renal stones. Slightlyincreased volume of stool in the left abdomen and pelvis. IMPRESSION: Moderate stool burden Electronically Signed and Authenticated by Chai De Los Santos MD 05/27/2024 18:31 Gt Blackwell APRN X-RAY Jinny l Result * URINE , POCT (05/27/2024 4:46 PM CDT) [facility] , Qual-Urine (POCT) Negative INTERNAL CONTROL OK Yes Kit Expiration Date 2025-05-11 Kit Lot # [id number] Gt Blackwell APRN INPATIENT POINT OF C ARE Final Result * TROPONIN, HIGH SENSITIVITY (05/27/2024 4:45 PM CDT) [facility] TROPONIN, HIGH SENSITIVITY <3 0 - 4 ng/L [facility] Comment: Refer to the High Sensitivity Troponin Algorithm for interpretation and risk stratification guidelines. [facility], [address] [place] [id number] 05/27/2024 4:45 PM CDT 05/27/2024 5:09 PM CDT Gt Blackwell APRN HEM/CHEM/IMMUN-BLOOD Final Result [facility] [address] [place] [phone], [place] * (ABNORMAL) UA WITH REFLEX CULTURE IF INDICATED (05/27/2024 4:45 PM CDT) COLOR Yellow COLORLESS:CLIFF L [facility] APPEARANCE Cloudy(A) CLEAR [facility] SP. GRAVITY 1.021 1.003 - 1.[address] [facility] PH 6.0 4.5 - 8.[address] [facility] PROTEIN Negative NEGATIVE mg/dL [facility] GLUCOSE Negative NEGATIVE mg/dL [facility] KETONE Negative NEGATIVE mg/dL [facility] BILIRUBIN Negative NEGATIVE [facility] BLOOD Negative NEGATIVE [facility] NITRITE Negative NEGATIVE [facility] UROBILINOGEN 0.2 <1.0 mg/dL [facility] LEUKOCYTE ESTERASE Negative NEGATIVE [facility] RBC 3 0 - 20 /uL [facility] WBC 24 0 - 25 /uL [facility] CASTS, URINE <1 0 - 2 /uL [facility] SQUAMOUS EPI 174(H) 0 - 30 /uL [facility] Comment:[facility], [address] [place] [phone] VOIDED URINE SPECIMEN / Unknown 05/27/2024 4:45 PM CDT 05/27/2024 5:03 PM CDT us Gt Blackwell [employer] TRUCK [employer]IVER HEM/CHEM/IMMUN-NON-B LOOD Final Result [facility] [address] [place] [id number], [place] * CBC W/DIFF (05/27/2024 4:45 PM CDT) Only the most recent of2 resultswithin the time period is included. WBC 7.38 4.00 - 11.00 10*3/uL [facility] RBC 4.05 3.50 - 5.20 10*6/uL [facility] HGB 12.3 11.0 - 16.0 g/dL [facility] HCT 37.8 34.0 - 47.0 % [facility] MCV 93.3 80.0 - 100.[address] [facility] MCH 30.4 26.0 - 33.[address] [facility] MCHC 32.5 31.0 - 35.0 g/dL [facility] RDW 12.8 12.0 - 15.0 % [facility] RDW-SD 43.7 38.0 - 52.[address] [facility] PLATELET 279 140 - 400 10*3/uL [facility] MPV 9.5 9.0 - 12.[address] [facility] SEG 70.7 % [facility] LYMPHOCYTE 23.4 % [facility] MONOCYTE 4.7 % [facility] EOSINOPHIL 0.8 % [facility] BASOPHIL 0.1 % [facility] IMMATURE GRANULOCYTE 0.3 % [facility] ABSOLUTE NEUTR 5.21 1.60 - 7.70 10*3/uL [facility] ABSOLUTE LYMPH 1.73 1.00 - 4.90 10*3/uL [facility] ABSOLUTE MONO 0.35 0.00 - 1.10 10*3/uL [facility] ABSOLUTE EOS 0.06 0.00 - 0.50 10*3/uL [facility] ABSOLUTE BASO 0.01 0.01 - 0.20 10*3/uL [facility] ABSOLUTE IMMATURE GRANULOCYTE 0.02 0.00 - 0.09 10*3/uL [facility] Comment:[facility], [address] [place] [phone] 05/27/2024 4:45 PM CDT 05/27/2024 5:09 PM CDT us Gt Blackwell [employer] TR[employer]IVER HEM/CHEM/IMMUN-BLOOD Final Result [facility] [address] [place] [phone], * (ABNORMAL) COMPREHENSIVE METABOLIC PANEL (05/27/2024 4:45 PM CDT) Only the most recent of2 resultswithin the time period is included. CALCIUM 8.6(L) 8.9 - 10.6 mg/dL [facility] GLUCOSE 83 74 - 100 mg/dL [facility] BUN 21(H) 7 - 19 mg/dL [facility] CREATININE 0.80 0.55 - 1.02 mg/dL [facility] TOTAL PROTEIN 6.3 6.0 - 8.0 g/dL [facility] ALBUMIN 3.4(L) 3.5 - 5.0 g/dL [facility] BILIRUBIN, TOTAL 0.1(L) 0.2 - 1.2 mg/dL [facility] AST 16 9 - 43 U/L [facility] ALT 8 0 - 34 U/L [facility] ALKALINE PHOSPHATASE 77 40 - 150 U/L [facility] SODIUM 140 136 - 145 mmol/L [facility] POTASSIUM 4.3 3.5 - 5.1 mmol/L [facility] CHLORIDE 107 98 - 107 mmol/L [facility] CO2 23.0 22.0 - 29.0 mmol/L [facility] GFR: CKD-EPI 2020 CREAT [address] [facility] Comment: eGFR of 90 or higher is in the normal range eGFR of 60-89 may mean early-stage kidney disease eGFR of 15-59 may mean kidney disease eGFR below 15 may mean kidney failure NOTE: The GFR estimate is reported in ml/min/1.73 square meters. Effective 07/16/22 the reported GFR estimate is calculated using the CKD-EPI 2020 equation and is intended only for the assessment of chronic kidney disease. [facility], [address] [place] [phone] 05/27/2024 4:45 PM CDT 05/27/2024 5:09 PM CDT us Gt Blackwell [employer]IVER HEM/CHEM/IMMUN-BLOOD Final Result [facility] [address] [place] [phone], [place] * LIPASE (05/27/2024 4:45 PM CDT) Only the most recent of2 resultswithin the time period is included. LIPASE 29 8 - 78 U/L [facility] Comment:[facility], [address] [place] [phone] 05/27/2024 4:45 PM CDT 05/27/2024 5:09 PM CDT us Gt Blackwell [employer] TR[employer] DRIVER HEM/CHEM/IMMUN-BLOOD Final Result Performing Organization Address [facility]/ZIP Co de Phone Number [facility] [address] [place] [phone], [place] * LACTIC ACID, ISTAT (POC) (05/27/2024 4:43 PM CDT) LACTIC ACID, ISTAT (POC) 1.4 0.5 - 2.0 mmol/L [facility] Comment:[facility], [address] [place] [phone] 05/27/2024 4:43 PM CDT 05/27/2024 4:45 PM CDT us Gt Sutherland MD HEM/CHEM/IMMUN-BLOOD F inal Result Performing Organization Address [facility] Co de Phone Number [facility] [address] [place] [phone], [place] * ECG 12 LEAD (05/27/2024 4:25 PM CDT) REPORT COMPONENT Study Date: 05/27/2024 Confirmation Date: 05/28/2024 Test Reason : Baseline Vent. Rate : 62 BPM Atrial Rate : 62 BPM P-R Int : 126 ms QRS Dur : 74 ms QT Int : 402 ms P-R-T Axes : 57 70 56 degrees QTc Int : 408 ms Normal sinus rhythm Normal ECG Referred By: GT BLACKWELL Confirmed By: GOLDEN GALEANO MD [facility] 05/27/2024 4:25 PM CDT us Gt Blackwell COMMERCIAL TRAILER TRUCK DRIVER [facility] Final Result Performing Organization Address [facility] Co de Phone Number [address] [phone], [place] * CT ABDOMEN/PELVIS WITH CONTRAST (05/25/2024 12:52 PM CDT) Anatomical Region Laterality Modality Abdomen, Pelvis N/A Computed Tomogra phy 05/25/2024 12:4 8 PM CDT Narrative 05/25/2024 1:05 PM CDT Accession Exam Completed Date/Time [id number] CT ABDOMEN/PELVIS WITH CONTRAST 05/25/2024 12:52 Requesting: TAHIR YOUNG CT of the Abdomen and Pelvis History: Abdominal pain, acute, nonlocalized, [facility] abdominal pain that started yesterday. Pt has H superior mesenteric artery syndrome, states she threw up blood 1x today, complains of nausea today. Pt given tylenol and bentyl earlier today with no relief. IV Contrast: 100 ml Isovue-300 Oral Contrast: None Comparison: September 27, 2020. Patient is scanned from lung bases through pubic symphysis. This examination may be evaluated with one or more artificial intelligence tools to aid in detection and reporting. FINDINGS: Lung bases/Lower Thorax: The lung bases are clear. Liver/Gallbladder: The liver appears normal. The gallbladder is surgically absent. Spleen: Normal Pancreas: Normal Adrenals/Kidneys: The kidneys and adrenals are normal. The renal collecting systems and ureters are normal. Bowel: Postsurgical changes are noted. There is no evidence for intestinal obstruction or acute inflammatory change related to the bowel. The appendix is not visualized though there are no findings to suggest acute appendicitis. Pelvic Structures: Normal Aorta and Vasculature: The aorta, vena cava and major vessels of the abdomen and pelvis demonstrate no acute abnormality Other: There is no ascites or lymphadenopathy identified. No other significant findings. IMPRESSION: No acute findings in the abdomen or pelvis. Electronically Signed and Authenticated by Evan Houston MD 05/25/2024 13:05 Procedure Note Evan Houston MD - 05/25/2024 Accession Exam CompletedDate/Time [id number] CT ABDOMEN/PELVIS WITH CONTRAST 2:52 Requesting: TAHIR YOUNG CT of the Abdomen and Pelvis History: Abdominal pain, acute, nonlocalized, [facility] that started yesterday. Pt hasPMH superior mesenteric artery syndrome, states she threw up blood 1xtoday, complains of nausea today. Pt given tylenol and bentyl earlier today with no relief. IV Contrast: 100 ml Isovue-300 Oral Contrast: None Comparison: September 27, 2020. Patient is scanned from lung bases through pubic symphysis. This examination may be evaluated with one or more artificial intelligencetools to aid in detection and reporting. FINDINGS: Lung bases/Lower Thorax: The lung bases are clear. Liver/Gallbladder: The liver appears normal. The gallbladder is surgicallyabsent. Spleen: Normal Pancreas: Normal Adrenals/Kidneys: The kidneys and adrenals are normal. The renalcollecting systems and ureters are normal. Bowel: Postsurgical changes are noted. There is no evidence for intestinalobstruction or acute inflammatory change related to the bowel. Theappendix is not visualized though there are no findings to suggest acuteappendicitis. Pelvic Structures: Normal Aorta and Vasculature: The aorta, vena cava and major vessels of theabdomen and pelvis demonstrate no acute abnormality Other: There is no ascites or lymphadenopathy identified. No othersignificant findings. IMPRESSION: No acute findings in the abdomen or pelvis. Electronically Signed and Authenticated by Evan Houston MD 05/25/2024 13:05 us Tahir Young MD CT WITH CONTRAST Final Resul t from Last 3 Months Additional Health Concerns Infection Onset Date Last Indicated MRSA Comment:Added from external infection. Source: [facility], [facility] [employer]. 07/11/2023 Insurance [facility] Advance Directives For more information, please contact: [phone] * Full Code (Latest Code Status on File) Date Activated Date Inactivated Comments 09/27/2020 8:24 AM 10/04/2020 10:27 PM Care Teams Tire Trucker Relationship Specialty Start Date End Date Identified, No Provider PCP - General 09/26/20
--- OUTSIDE RECORDS SUMMARY | 2024-07-09 13:39 | XMS_ITS | Data Portability ---
Author Organization [place] - [facility] Address [address] [place] [address] Assessment Encounter Date Assessment Date Assessment LastModified by Organization Details LastModified Time 12/01/2022 12/01/2022 ADDENDUM: 12/24/2022 EGD Al nella 10/10/21 scattered irritability erythema linear erosions prepyloric and second portion of duodenum. Biopsies neg for H pylori or stigmata of Celiac or infection. Was considering Repeat EGD after that procedure (Dr. Dennis) [email or web address] Not available 12/24/2022 13:46:43 Plan of Treatment Reminders Order Date Submit Date Provider Last Modified By Organization Details Last Modified Time Details Appointments None recorded. Lab None recorded. Referral gastroenter ologist referral - referral evaluate and treat hx of SMA s/p surgery 2011 with partial small bowel obstruction on CT abdominal bloating, pain, 2022 023 [facility], [address] [place], [address], 3 15:14:24 Procedures None recorded. Surgeries None recorded. Imaging None recorded. Medication Orders None recorded. Patient TargetsNo targets recorded. Patient InstructionsNo instructions recorded. 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 [email or web address] Not Available 2022 23:12:11 11/20/19 CT, abdom en + pelvi s, w/o contr ast No observ ation record ed. [email or web address] Not Available 07/2022 14:27:56 12/01/1911/12/2022 CT, abdom en + pelvi s, w/ contr ast No observ ation record ed. BARCODE Not Available 2022 17:03:12 12/25/1909/23/2021 CT, abdom en + pelvi s, w/ contr ast No observ ation record ed. BARCODE Not Available 2022 12:08:25 12/25/19 23 10/08/2021 CT, abdom en + pelvi s, w/ contr ast No observ ation record ed. BARCODE Not Available 2022 12:18:39 12/25/1910/09/2022 CT, abdom en + pelvi s, w/ contr ast No observ ation record ed. BARCODE Not Available 2022 12:20:03 12/25/1911/11/2021 MRI, abdom en, w/wo contr ast No observ ation record ed. BARCODE Not Available 2022 12:20:55 12/25/19 23 11/14/2021 XR, chest , 2 view No observ ation record ed. BARCODE Not Available 2022 12:22:20 12/25/1909/11/2022 CT, abdom en + pelvi s, w/ contr ast No observ ation record ed. BARCODE Not Available 2022 12:22:20 12/25/1911/14/2021 CT, abdom en + pelvi s, w/ contr ast No observ ation record ed. BARCODE Not Available 2022 12:23:55 Result Notes None recorded. 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 Nicole Crouch zoraida, [facility] 3 12:51:15 Swollen abdomen 72257663 Active 2022 ALEJANDRINA PINTO PA-C [address] [place], [address] , [facility] 3 13:20:14 Decreased bowel sounds 83478388 Active 2022 ALEJANDRINA PINTO PA-C [address] [place], [address] , [facility] 3 13:20:21 Diarrhea 43314601 Active 2022 ALEJANDRINA PINTO PA-C [address] [place], [address] , [facility] 3 13:27:45 Hematochez ia 263036784 Active 2022 ALEJANDRINA PINTO PA-C [address] [place], [address] , [facility] 3 13:27:51 History of bowel obstructio n 3588078423568 08 Active 2022 ALEJANDRINA PINTO PA-C [address] [place], [address] , [facility] 3 07:17:38 Bipolar disorder 88673198 Active 2022 ALEJANDRINA PINTO PA-C [address] [place], [address] , [facility] 3 07:21:18 Partial obstructio n of small bowel 008885064 Active 2022 ALEJANDRINA PINTO PA-C [address] [place], [address] , [facility] 3 11:18:18 Diarrheal disorder 887704361 Active Not Available [facility] 3 16:34:25 Nausea and vomiting 86122494 Active Not Available [facility] 3 16:34:25 Abdominal pain 38761018 Active Not Available [facility] 3 16:34:25 Problem Notes None recorded. Medical Equipment None Reported. Allergies Allergen ID Allergen Name Allergen Category Reaction Reaction Severity Criticality Documentation Date Start Date Code Code System Note Provider Name and Address Organization Details Recorded Time 050905 tramadol medicatio n Not available Not available Not available 12/08/[address] [facility] 3 10:57:04 25475 Toradol medicatio n Not available Not available Not available 02/21/2022 71737 RxNorm Not Available [facility] 3 16:35:14 55916 sulfameth oxazole / trimethop rim medicatio n Not available Not available Not available 02/21/2022 80304 RxNorm Not Available [facility] 3 16:35:14 84698 Premarin medicatio n Not available Not available Not available 02/21/2022 10967 6 RxNorm Not Available [facility] 3 16:35:14 59200 nortripty line medicatio n Not available Not available Not available 02/21/2022 7531 RxNorm Not Available [facility] 3 16:35:14 33534 Keppra medicatio n Not available Not available Not available 02/21/2022 70956 7 RxNorm Not Available [facility] 3 16:35:14 34560 Vaccine product containin g only Influenza virus antigen (medicina l product) medicatio n Not available Not available Not available 02/21/2022 45290 78629 105 SNOMED Not Available [facility] 3 16:35:14 73975 influenza virus vaccine, specific Not available Not available Not available Not available 02/21/2022 81230 UNK Not Available [facility] 3 16:35:14 97608 gabapenti n medicatio n Not available Not available Not available 02/21/2022 87538 RxNorm Not Available [facility] 3 16:35:14 86495 Effexor medicatio n Not available Not available Not available 02/21/2022 52753 2 RxNorm Not Available [facility] 3 16:35:14 Medications Name Sig Start Date Stop Date Status Note LastModified by Organization Details LastModified Time multivitami n tablet TAKE 1 TABLET BY MOUTH EVERY DAY WITH BREAKFAST active Not Available Not Available No t Available trazodone 50 mg tablet TAKE 1 TABLET BY MOUTH AT BEDTIME active Not Available Not Available No t Available Zyprexa 10 mg tablet Take 1 tablet every day by oral route. active Not Available Not Available No t Available levetiracet am 500 mg tablet TK 1 T PO BID UTD active Not Available Not Available No t Available hydrocodone 5 mg-acetamin ophen 325 mg tablet TAKE 1 TABLET BY MOUTH EVERY 6 HOURS NEEDED FOR PAIN active Not Available Not Available No t Available sucralfate 100 mg/mL oral suspension SHAKE LIQUID AND TAKE 10 ML BY MOUTH THREE TIMES DAILY active Not Available Not Available No t Available sucralfate 1 gram tablet TAKE 1 TABLET BY MOUTH FOUR TIMES DAILY BEFORE MEALS AND AT NIGHT FOR GERD 12/08 completed Not Available Not Available Not Available promethazin e 12.5 mg tablet Take 1 tablet 4 times a day by oral route. 2014 active Not Available Not Available Not Avai lable ondansetron HCl 4 mg tablet 12/08 completed Not Available Not Available Not Available prednisone 20 mg tablet TK 2 TS PO ONCE D FOR 5 DAYS active Not Available Not Available No t Available metronidazo le 500 mg tablet TAKE 1 TABLET BY MOUTH TWICE DAILY WITH THE MORNING AND EVENING MEAL FOR 2 DAYS FOR SEXUALLY TRANSMITT ED DISEASE 12/01 completed Not Available Not Available Not Available triamcinolo ne acetonide 0.1 % topical cream DANIA AA BID active Not Available Not Available No t Available pantoprazol e 20 mg tablet,filippo yed release TAKE 1 TABLET BY MOUTH TWICE DAILY 12/01 completed Not Available Not Available Not Available magnesium oxide 400 mg (241.3 mg magnesium) tablet TAKE 1 TABLET BY MOUTH EVERY DAY active Not Available Not Available No t Available metoclopram aamir 5 mg tablet TAKE 1 TABLET BY MOUTH THREE TIMES DAILY NEEDED FOR NAUSEA OR VOMITING 12/08 completed Not Available Not Available Not Available DOK 100 mg capsule 12/01 completed Not Available Not Available Not Available dicyclomine 20 mg tablet Take 1 tablet 4 times a day by oral route. 12/01 completed Not Available Not Available Not Available baclofen 10 mg tablet TAKE 1 TABLET BY MOUTH TWICE DAILY active Not Available Not Available No t Available doxycycline monohydrate 100 mg capsule TAKE 1 CAPSULE BY MOUTH TWICE DAILY WITH FOOD FOR 2 DAYS 12/01 completed Not Available Not Available Not Available pantoprazol e 40 mg tablet,filippo yed release active Not Available Not Available Not Available Compazine 25 mg rectal suppository Insert 1 supposito ry twice a day by rectal route. 12/01 completed Not Available Not Available Not Available folic acid 1 mg tablet TAKE 1 TABLET BY MOUTH EVERY DAY active Not Available Not Available No t Available hydroxyzine HCl 25 mg tablet TAKE 1 TABLET BY MOUTH FOUR TIMES DAILY NEEDED 12/01 completed Not Available Not Available Not Available lorazepam 1 mg tablet Take 1 tablet 3 times a day by oral route. 12/01 completed Not Available Not Available Not Available ondansetron 4 mg disintegrat ing tablet DISSOLVE 1 TABLET ON THE TONGUE EVERY 6 HOURS NEEDED FOR NAUSEA AND VOMITING active Not Available Not Available No t Available dicyclomine 10 mg capsule TAKE ONE CAPSULE BY MOUTH EVERY 6 HOURS FOR 20 DOSES 12/08 completed Not Available Not Available Not Available diazepam 5 mg tablet TAKE 1 TABLET BY MOUTH THREE TIMES DAILY NEEDED active Not Available Not Available No t Available metoclopram aamir 10 mg tablet TAKE 1 TABLET BY MOUTH THREE TIMES DAILY BEFORE MEALS active Not Available Not Available No t Available simethicone 80 mg chewable tablet active Not Available Not Available Not Available hydroxyzine pamoate 25 mg capsule TAKE 1 CAPSULE BY MOUTH THREE TIMES DAILY NEEDED FOR ANXIETY active Not Available Not Available No t Available aripiprazol e 10 mg tablet TAKE 1 TABLET BY MOUTH EVERY DAY active Not Available Not Available No t Available Vitals Date Recorded Body height Body mass index (BMI) Body weight Heart rate Heart rate Oxygen saturation Oxygen saturation in Arterial blood by Pulse oximetry Systolic And Diastolic Provider Name and Address Organization Details Last Updated DateTime 3 162.56 cm 22.7 kg/m2 66528.1 9 g 76 /min 76 /min 96 % 96 % 120/68 mm[Hg] Nicole Crouch [facility] 3 12:38:45 Date Recorded Body height Body mass index (BMI) Body weight Heart rate Heart rate Oxygen saturation Oxygen saturation in Arterial blood by Pulse oximetry Systolic And Diastolic Provider Name and Address Organization Details Last Updated DateTime 162.56 cm 22.6 kg/m2 50791.4 g 72 /min 72 /min 98 % 98 % 120/82 mm[Hg] Nicole Crouch [facility] 3 10:55:45 Social History Question Answer Notes LastModified by [employer] Details LastModified Time Tobacco Smoking Status Never Smoker Nicole Crouch [facility] 12/01/2022 12:45:09 What Is Your Level Of Caffeine Consumption? Occasional [email or web address] Information not available 12/01/2022 Which Illicit Or Recreational Drugs Have You Used? Marijuana [email or web address] Information not available 12/01/2022 Have You Used IV Drugs? Yes [email or web address] Information not available 12/01/2022 Sex: Unknown Functional Status Question Answer Note LastModified by [employer] Details LastModified Time Do you use any illicit or recreational drugs? Yes [email or web address] Information not available 12/01/2022 What is your level of alcohol consumption? 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 Family History Nothing Reported. Medical History No medical history recorded. Gynecological HistoryNo gynecological history recorded. Obstetrics History GPAL:G 0 P 0 0 0 0 Past Encounters Encounter ID Performer Location Encounter Start Date Encounter Closed Date Diagnosis/Indication Diagnosis SNOMED-CT Code Diagnosis ICD10 Code Diagnosis Note [id number] Shira Benoit MD [facility] [address] [address] 12/01/2022 12:25:53 12/01/2022 14:03:19 History of surgery 580981466 Z98.890 proximal small bowel partial resection in past.likel y at least partial sbo at anastamosi s. Will send to ER for evaluation since she has severe abdominal pain and distension and paucity of bowel sounds and c/o bloody diarrhea Spoke with LAMAR Arrington in ER and report given Abdominal pain 25752630 R10.9 Swollen abdomen 29674348 R19.00 Decreased bowel sounds 18306757 R19.15 Diarrhea 60067707 R19.7 Hematochezia 104844807 K 92.1 [id number] Shira Benoit MD [facility] [address] [address] 12/08/2022 10:48:47 12/08/2022 11:27:16 Abdominal pain 12104905 R10.9 discontinu e the dicyclomin e as it is working against the small bowel motility History of bowel obstruction 3275297981 81823 Z87.19 with hx of proximal small bowel Nausea and vomiting 1693 1999 R11.2 Has reglan on med list. prescribed 12/04/22 on d/c from hospital Is on zofran 4mg as well along with promethazi ne alternatin g. She also was started on Carafate QID taking all but not helping. Bipolar disorder 4505749 4 F31.9 Partial ob struction of small bowel 240642132 K56.690 will refer to [facility] for abdominal pain, n/v, at least partial sbo Health Concerns Section Related Observation LastModified by Organization Detai ls LastModified Time None Recorded Concern Status LastModified by Organization Details LastModified Time None Recorded Advance Directives Directive None Recorded Payers Insurance Date Sequence Insurance Name Policy Number Policy Dunne Covered Member ID Dunne Member ID Guarantor Name 05/23/2024 1 [place] [employer] Jennifer Lopez Sherry [id number] Jennifer Lopez Sherry 05/23/2024 1 [facility] - DOS ON OR AFTER 20 (MEDICAID REPLACEMENT - HMO) Jennifer Lopez Sherry [id number] Jennifer Lopez Sherry Notes Date Note Type Note Provider Name and Address Organization Details Recorded Time 12/01/2022 text/html New patient hosp ital follow up. Has previously seen Dr. Abhi MANN hx, previous proximal small bowel resection. Gastroparesis, Epigastric pain. Multiple CT imaging tests 11/18 and 11/19 CT shows possible small bowel wall thickening.partial sbo.at the anastamosis from previous small bowel surgery normal biliary tree. cholecystectomy with compensatory enlargement of the biliary tree. No stones.Has had jejunostomy for gastroparesis in the past. Not now.Pt also has extensive psych history. Routinely inpatient for psych She states has been off of methamphetamines for 97 days.Proximal small bowel resection:in the past for kink in my bowel Last EGD Dr. Dennis [address] Dennis 1 year ago Will ask for records from previous GI Dr. Dennis.Negative lipase/amylase in most recent hospital stay.Pt states last seen by Dr. 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 Nur at [facility] but they did not feel that she needed MRCP she states.She currently c/o abdominal pain throughout, abdominal distension, loose stool (last bm yesterday loose with blood admixed) c/o nausea . Has lost 5 # in the last week due to hurts abdomen to eat.Very nauseated no vomiting. Is taking Zofran BID Also was started on Reglan taking TID ALEJANDRINA PINTO PA-C [address] [place], [address], [facility] 12/24/2022 13:46:46 12/08/2022 text/html Previously seen 12/01 as new patient hospital follow up. Has previously seen Dr. Dennis [facility] hx, previous proximal small bowel resection. Gastroparesis, Epigastric pain. Multiple CT imaging tests 11/18 and 11/19 CT shows possible small bowel wall thickening.partial sbo.at the anastamosis from previous small bowel surgery normal biliary tree. cholecystectomy with compensatory enlargement of the biliary tree. No stones.Has had jejunostomy for gastroparesis in the past. Not now.Pt also has extensive psych history. Routinely inpatient for psych She states has been off of methamphetamines for 97 days.Proximal small bowel resection:in the past for kink in my bowel Last EGD Dr. eDnnis [address] Dennis 1 year agoPlan:proximal small bowel partial resection in past.likely at least partial sbo at anastamosis. Will send to ER for evaluation since she has severe abdominal pain and distension and paucity of bowel sounds and c/o bloody diarrhea Spoke with LAMAR Arrington in ER and report given She is having problems 2 days after discharge. alot of bloating and abdominal pain, occasional nausea. ALEJANDRINA PINTO PA-C [address] [place], [address], [facility] 01/02/2023 17:44:16 OBGyn Episode No OBEpisode recorded.
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
--- NOTE | 2024-07-09 14:32 | ED_ITS ---
HPI - General Adult General Chief complaint: Headache Stated complaint: migraine Time Seen by Provider: 07/09/24 13:30 History of Present Illness HPI narrative: 49-year-old female presents to the emergency department for evaluation for migraine headache that is been ongoing for the last few days. 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 Sat she does have a remote history of headaches. Denies any history of frequent migraines. Patient denies any associated numbness or weakness but does report light sensitivity and nausea. Related Data Allergies Allergy/AdvReac Type Severity Reaction Status Date / Time estrogens, conjugated (From Allergy Mild Unknown Verified 07/09/24 12:24 Premarin) gabapentin Allergy Mild Unknown Verified 07/09/24 12:24 influenza virus vaccine, Allergy Mild Unknown Verified 07/09/24 12:24 live atten ketorolac (From Toradol) Allergy Mild Unknown Verified 07/09/24 12:24 nortriptyline Allergy Mild Unknown Verified 07/09/24 12:24 sulfamethoxazole (From Allergy Mild Unknown Verified 07/09/24 12:24 Septra) tramadol Allergy Mild Unknown Verified 07/09/24 12:24 trimethoprim (From Septra) Allergy Mild Unknown Verified 07/09/24 12:24 Review of Systems Review of Systems: All systems reviewed & are unremarkable except as noted in HPI and below Exam Narrative: APPEARANCE: Well appearing, no pain, no distress, well-nourished. HEAD: normocephalic, atraumatic. EYES: PERRLA/EOMI, conjunctivae clear. NOSE: Normal no drainage EARS:TMS clear with good light reflex. THROAT: Pharynx clear, no exudate. NECK: Supple. No adenopathy, no masses. RESPIRATORY: Airway patent, respirations nonlabored. Clear to auscultation bilaterally, no rales, rhonchi, wheezing. CARDIOVASCULAR: Regular rate and rhythm without murmurs rubs or gallops. ABDOMINAL: Soft, nontender, nondistended, normal bowel sounds MUSCULOSKELETAL: Moves all extremities. Strength/ROM intact, No edema, No calf tenderness. NEURO: Alert. Cranial nerves II through XII intact. Good gait. Good coordination SKIN: Warm, dry. Normal Color Course Vital Signs Vital signs: Vital Signs Pulse Rate 78 07/09/24 12:18 Respiratory Rate 18 07/09/24 12:18 Blood Pressure 107/42 L 07/09/24 12:18 Pulse Oximetry 100 07/09/24 12:18 Pulse Rate 78 07/09/24 12:18 Respiratory Rate 18 07/09/24 12:18 Blood Pressure 107/42 L 07/09/24 12:18 Pulse Oximetry 100 07/09/24 12:18 Medical Decision Making MDM Narrative Medical decision making narrative: 49-year-old female present to the emergency department for evaluation for headache. Patient was treated with Toradol, LR, IV Compazine IV Benadryl IM dexamethasone and p.o. Tylenol. Patient reports she does have some improvement with treatment. Head CT was negative for acute intracranial abnormality. Patient was discharged to home with instructions for close outpatient follow-up. Differential Diagnosis Differential Diagnosis: Migraine, tension headache, subdural hematoma, subarachnoid hemorrhage, acute headache Vital Signs Vital Signs: Vital Signs Pulse Rate 78 07/09/24 12:18 Respiratory Rate 18 07/09/24 12:18 Blood Pressure 107/42 L 07/09/24 12:18 Pulse Oximetry 100 07/09/24 12:18 Pulse Rate 78 07/09/24 12:18 Respiratory Rate 18 07/09/24 12:18 Blood Pressure 107/42 L 07/09/24 12:18 Pulse Oximetry 100 07/09/24 12:18 Imaging Data Radiologist's impression: Impressions Head CT 07/09/24 16:25 IMPRESSION: No acute intracranial findings. Discharge Plan Discharge Clinical Impression: Headache Patient Disposition: Home Condition: Stable Instructions: Antibiotic Form, Acute Headache (ED) Additional Instructions: Have close follow-up with your primary care physician. If you have any worsening symptoms then please call or return to the emergency department. Patient Language: Brazilian Follow-up/Referrals: PHYSICIAN NOT ON STAFF,NONSTAFF [Primary Care Provider] -
[2024-07-09] MEDS: LACTATED RINGERS 1,000 ML 999 ML IV CONT (14:50)
[2024-07-09] MEDS: diphenhydrAMINE HCl INJ 50 MG/ML VIAL 25 MG IV PUSH (14:52)
[2024-07-09] MEDS: KETOROLAC 15 MG/ML VIAL (*BKC) IV PUSH (14:52)
[2024-07-09] MEDS: PROCHLORPERAZINE EDISYLATE 10 MG/2 ML VIAL IV PUSH (14:53)
--- NOTE | 2024-07-09 16:26 | PC.NURSE ---
Patient requesting pain medication, physician notified, no orders given at this time
[2024-07-09] MEDS: ACETAMINOPHEN 500 MG TABLET 1000 MG PO (16:32)
[2024-07-09] MEDS: dexAMETHasone SOD PHOS INJ 10 MG/ML 1 ML VIAL IM (16:33)
--- NOTE | 2024-07-09 17:01 | PC.NURSE ---
called report to [facility], facility states that they will have DON call for report, and then they will set up transport once that is complete
--- NOTE | 2024-07-09 17:20 | PC.NURSE ---
Report given to nurse at [place]. All questions answered.
== END 2024-07-09 17:23 | disposition home or self-care (01) ==
PROVIDERS: Emergency Provider Emergency Medicine
DX: R51.9 Headache, unspecified (principal)
CPT/HCPCS: 70450; 96361; 96372; 96374; 96375; 99284; A9270; J0780; J1100; J1200; J1885; J7120

== ENCOUNTER 2024-07-13 20:50 | Emergency (ER) | payer OTHER, SELFPAY ==
--- OUTSIDE RECORDS SUMMARY | 2024-07-13 20:52 | XMS_ITS | Clinical Summary ---
Author Organization [facility] Address [address] [place] [address] Care Team Providers Care Supervisor Prepress Name Role Phone Unavailable Primary Care Provider Unavailabl e Source Comments [facility],non-owned Affiliates and Associated Physician Practices is amultiple site organization consisting of ambulatory clinics and hospital sitesin [place], [place], [place] and [place]. This disclosure is being madepursuant to the Care Everywhere program and may not contain all information available regarding this patient. Last updated 17.[facility] Allergies Active Allergy Reactions Criticality Noted Date Comments Bee Venom Unknown 11/07/2019 Dexamethasone Seizures,Headache 08/04/2015 Venlafaxine Other 06/21/2012 Shaky and trembling Flu Virus Vaccine Unknown 12/22/2022 Gabapentin Seizures,Other 06/21/2012 Trembling, shakiness Influenza Vac Typ Other 03/28/2013 Chest tightness, facial tingling Influenza Vaccines Unknown 01/04/2023 Levetiracetam Other,Unknown High 04/10/2013 States it increases her anger & gives her cold-like Sx Nortriptyline Headache 06/21/2012 Estrogens Conjugated Unknown 06/21/2012 Sulfamethoxazole W-Trimethoprim Rash Low 08/13/2013 Ketorolac Itching Low 04/16/2014 Tramadol Rash,Itching Low 05/09/2015 Medications * This document contains information received from the source organization and may not represent a complete record from that organization. * Be aware that medications may not be up to date on this document. Alwaysverify current medications with the patient. ARIPiprazole (Abilify) 10 MG tabletIndications:S chizophrenia Take 1 (one) tablet by mouth once daily Reasons: Schizophrenia 30 tablet 025 Active dolutegravir (Tivicay) 50 MG tabletIndications:H uman Immunodeficiency Virus Disease Take 1 (one) tablet by mouth once daily Reasons: HIV Disease 30 tablet 025 Active emtricitabine-tenof ovir DF (Truvada) 200-300 MG tabletIndications:H uman Immunodeficiency Virus Disease Take 1 (one) tablet by mouth once daily Reasons: HIV Disease 30 tablet 025 Active Magnesium Oxide -Mg Supplement 400 (240 Mg) MGIndications:Nutri tion Disorder Take 1 (one) tablet by mouth 2 times daily 180 tablet 3 023 2024 Disconti nued(Tx Complete ) baclofen (Lioresal) 10 MG tablet Take 1 (one) tablet by mouth 3 times daily as needed For pain. 025 2024 Disconti nued(Lis t Clean-Up ) cefixime (Suprax) 400 MG capsule 025 2024 Disconti nued(Lis t Clean-Up ) folic acid (Folvite) 1 MG tablet Take 1 (one) tablet by mouth once daily 2024 Disconti nued(Lis t Clean-Up ) methocarbamol (Robaxin) 750 MG tablet TAKE 1 TABLET BY MOUTH FOUR TIMES DAILY NEEDED FOR SPASM 025 2024 Disconti nued(Lis t Clean-Up ) cyclobenzaprine (Flexeril) 10 MG tablet 025 2024 Disconti nued(Lis t Clean-Up ) OLANZapine (ZyPREXA) 10 MG tablet Take 1 (one) tablet by mouth once daily 30 tablet 025 2024 Disconti nued(Lis t Clean-Up ) diazePAM (Valium) 5 MG tablet Take 1 (one) tablet by mouth 3 times daily as needed 90 tablet 025 2024 Disconti nued(Lis t Clean-Up ) ARIPiprazole (Abilify) 5 MG tabletIndications:M ixed Bipolar Affective Disorder Take 1 (one) tablet by mouth once daily Reasons: MIXED BIPOLAR AFFECTIVE DISORDER 30 tablet 025 2024 Disconti nued(Dos e Adjustme nt) midodrine (Proamatine) 10 MG tabletIndications:O rthostatic Hypotension Take 1 (one) tablet by mouth 3 times daily before meals for 30 days Reasons: Blood Pressure Drop Upon Standing 90 tablet 025 2024 Disconti nued(Lis t Clean-Up ) omeprazole (PriLOSEC) 40 MG capsuleIndications: Gastroesophageal Reflux Disease Take 1 (one) capsule by mouth 2 times daily, before breakfast and supper for 30 days Reasons: Gastroesophageal Reflux Disease 60 capsule 025 2024 Disconti nued(Lis t Clean-Up ) ondansetron, disintegrating, (Zofran ODT) 4 MG tablet Take 1 (one) tablet by mouth every 6 hours as needed for Nausea/Vomiting Allow tablet to dissolve on the tongue 30 tablet 025 2024 Disconti nued(Lis t Clean-Up ) traZODone (Desyrel) 50 MG tablet Take 1 (one) tablet by mouth once daily 90 tablet 025 2024 Disconti nued(Tx Complete ) Active Problems Problem Noted Date Diagnosed Date Injury of neck, initial encounter 06/27/2024 Blunt head trauma, initial encounter 06/27/2024 Post traumatic stress disorder (PTSD) 07/11/2023 History of small bowel obstruction 12/08/2022 Methamphetamine use disorder, severe 08/25/2021 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 Hypotension 08/12/2021 Recurrent abdominal pain 09/27/2020 023 Hematemesis 11/30/2019 Overview (07/16/2022): Added automatically from request for surgery [id number] Dysphagia 11/30/2019 07/16/2022 Overview (07/16/2022): Added automatically from request for surgery [id number] Cannabis use disorder, severe, dependence 201907/16/2022 Overview (07/16/2022): Added automatically from request for surgery [id number] Unspecified mood (affective) disorder 11/07/2019 Gastroparesis 04/09/2013 S/P small bowel resection 04/09/2013 Cholecystitis 04/09/2013 S/P appendectomy 04/09/2013 ACOSTA (generalized anxiety disorder) 09/15/2012 Chronic hepatitis C virus infection 04/22/2011 Never smoked tobacco 02/25/2011 07/16/2022 Overview (07/16/2022): Description: 02-25-2011 Resolved Problems Problem Noted Date Diagnosed Date Resolved Date Psychosis, unspecified psychosis type 07/11/2023 07/11/2023 Cellulitis of left lower extremity 03/23/2023 07/11/2023 Partial small bowel obstruction 12/21/2022 07/11/2023 History of drug abuse 12/01/2022 01/04/20232023 Overview (01/04/2023): clean from Meth for 93 days Abnormal findings on diagnos tic imaging of liver and biliary tract 09/24/2022 07/11/2023 Suicidal ideation 08/31/2022 07/11/2023 Substance induced mood disorder 08/31/2022 07/11/2023 Gastritis and duodenitis 07/16/2022 07/16/2022 Gastritis without bleeding 07/16/2022 07/16/2022 0 07/11/2023 SBO (small bowel obstruction) 07/16/2022 07/16/2022 07/11/2023 Intractable abdominal pain 07/16/2022 07/16/2022 0 07/11/2023 Periumbilical abdominal pain 10/17/2021 07/11/2023 Biliary tract distention 10/17/2021 Infectious enteritis 10/17/[address] scan, gastrointestinal tract 10/17/2021 07/11/2023 Closed fracture of transvers e process of cervical vertebra, initial encounter 10/08/2021 LLQ abdominal pain 10/02/2021 4 RLQ abdominal pain 10/02/2021 4 RUQ abdominal pain 10/02/2021 4 LUQ abdominal pain 10/02/2021 4 Other constipation 10/02/2021 4 Poor appetite 10/02/2021 07/11/2023 SMAS (superior mesenteric artery syndrome) 10/02/2021 07/11/2023 Homicidal ideation 08/23/2021 2 Hypokalemia 08/12/2021 04/09/2023 Trauma 08/12/2021 07/11/2023 Blunt force injury 08/12/2021 4 Nausea vomiting and diarrhea 08/12/2021 09/09/2021 Hypotension, unspecified hypotension type 08/12/2021 07/11/2023 Acute intractable headache 12/20/2020 0 07/11/2023 Insomnia 12/20/2020 07/11/2023 Blood in stool 11/30/2019 07/16/2022 07/11/2023 Overview (07/16/2022): Added automatically from request for surgery [id number] Family history of colon cancer 11/30/2019 07/16/2022 07/11/2023 Overview (07/16/2022): Added automatically from request for surgery [id number] Abdominal cramping 11/30/2019 07/16/2022 4 Overview (07/16/2022): Added automatically from request for surgery [id number] Alternating constipation and diarrhea 11/30/201902/202207/11/2023 Overview (07/16/2022): Added automatically from request for surgery [id number] Suicidal ideation 11/07/2019 08/25/2021 Anxiety states 11/07/2019 07/11/2023 Chest wall pain 09/28/2019 07/11/2023 Upper respiratory tract infection 09/28/2019 10/12/2019 Abdominal pain, generalized 09/13/2019 07/11/2023 Adynamic ileus 09/13/2019 07/11/2023 Severe malnutrition 06/04/2018 07/16/2022 03/22/19 25 Methamphetamine use 06/03/2018 07/11/19 24 Overview (07/16/2022): Last Assessment & Plan: - Chem dependency cs (endorses meth / MJ use; patient has requested consult) Generalized abdominal pain 06/02/2018 0 07/11/2023 Overview (07/16/2022): Added automatically from request for surgery [id number] Abdominal bloating 11/16/2014 07/16/2022 Overview (07/16/2022): Added automatically from request for surgery [id number] Rash 05/31/2013 07/16/2022 08/13/2022 Diarrhea 12/02/2012 07/16/2022 08/13/2022 Nausea 09/10/2010 07/11/2023 Overview (07/16/2022): Last Assessment & Plan: # Abdominal Pain, Nausea / Vomitting -c/f stenosis of duodenojejunal bypass - NPO - NGT to suction, monitor output - CT AP nominated, f/u read - KUB 06/03: Administered oral contrast on outside hospital CT has transited to the colon. Bowel gas pattern is normal without evidence of obstruction. - SBFT 06/03--> cancelled due to normal imaging - Chem dependency cs (endorses meth / MJ use) - f/u labs (CBC, CMP, Mg, Phos, HepC -cottonseed enema 06/03 -GI consult for decreased motility 06/03. Patient has been followed by Dr. Metzger in the past. F/u recs Prior to discharge the patient was able to tolerate a PO diet Added automatically from request for surgery [id number] Added automatically from request for surgery [id number] Epigastric pain 09/10/2010 07/11/2023 Constipation 09/10/2010 07/16/2022 08/13/2022 Encounters * This document contains information received from the source organization and may not represent a complete record from that organization. Date Type Department Care Team Description 06/27/2024 Travel 05/24/2024 Telephone [facility] - GI [address], [facility] [address] [place] [phone] Manda Brooks APRN-CNP General (No shows) 04/25/2024 Telephone [facility] - GI 2 [address], [facility] [address] [place] [phone] Manda Brooks APRN-CHIDI Scheduling 04/25/2024 Telephone [facility] - GI 2 [address], [facility] [address] [place] [phone] Manda Brooks APRN-CHIDI Scheduling from Last 3 Months Immunizations Immunization Administration Dates Next Due HEP B VACCINE, ADULT 3 DOSE 06/27/2024 INFLUENZA VACCINE 03/01/2013 TDAP (7yrs+) 06/27/2024,08/30/2022 Family History Medical History Relation Name Comments CVA Father Diabetes Maternal Aunt Cancer - Other Maternal Grandfather Heart Disease Maternal Grandfather Hypertension Maternal Grandfather Diabetes Maternal Grandmother Heart Disease Maternal Grandmother Hypertension Maternal Grandmother Cancer - Other Mother ovarian CVA Paternal Grandfather CVA Paternal Grandmother Relation Name Status Comments Father (Age 58) Maternal Aunt Maternal Grandfather Maternal Grandmother Mother (Age 50) Paternal Grandfather Paternal Grandmother Social History Tobacco Use Types Packs/Day Years Used Date Smoking Tobacco: Never Smokeless Tobacco: Never Tobacco Cessation:Counseling Given: Yes Comments:nonsmoker Alcohol Use Standard Drinks/Week Comments Not Currently 0 (1 standard drink = 0.6 oz pur e alcohol) only occasional AUDIT-C Answer Date Recorded Q1: How often do you have a drink containing alcohol? Never 06/27/2024 Q2: How many drinks containi ng alcohol do you have on a typical day when you are drinking? Patient does not drink Q3: How often do you have si x or more drinks on one occasion? Never 06/27/2024 Overall Financial Resource Strain (CARDIA) Answe r Date Recorded How hard is it for you to pa y for the very basics like food, housing, medical care, and heating? Very hard 06/27/2024 PHQ-2 Answer Date Recorded Patient Health Questionnaire-2 Score 6 06/27/2024 [facility] - Occupational Stress Questionnaire Answer Date Recorded Do you feel stress - tense, restless, nervous, or anxious, or unable to sleep at night because your mind is troubled all the time - these days? Very much 06/27/2024 Hunger Vital Sign Answer Date Recorded Within the past 12 months, y ou worried that your food would run out before you got the money to buy more. Often true 06/28/19 25 Within the past 12 months, t he food you bought just didn't last and you didn't have money to get more. Often true 06/27/2024 PRAPARE - Transportation Answer Date Re corded In the past 12 months, has l ack of transportation kept you from medical appointments or from getting medications? Yes 06/15 In the past 12 months, has l ack of transportation kept you from meetings, work, or from getting things needed for daily living? Yes 06/27/2024 Housing Stability Vital Sign Answer Adelso e Recorded In the last 12 months, was t here a time when you were not able to pay the mortgage or rent on time? Yes 07/11/2023 In the last 12 months, how many places have you lived? 6 07/11/2023 In the last 12 months, was t here a time when you did not have a steady place to sleep or slept in a retirement (including now)? Yes 07/11/2023 Housing Stability Vital Sign Answer Adelso e Recorded In the last 12 months, was t here a time when you were not able to pay the mortgage or rent on time? Yes 06/27/2024 In the past 12 months, how m any times have you moved where you were living? 0 06/27/2024 At any time in the past 12 m [facility], were you homeless or living in a retirement (including now)? No 06/27/2024 Comments No Sex and Gender Information Value Date Recorded Sex Assigned at Not on file Legal Sex 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 [employer] Gender Identity Not on file Sexual Orientation Not on file Occupation Industry Job Start Date Job End Date [employer] Not on file Not on file Not on file Last Filed Vital Signs Vital Sign Reading Time Taken Comments Blood Pressure 96/45 07/05/2024 7:45 AM CDT Pulse 63 07/05/2024 7:45 AM CDT Temperature 36.7 C (98 F) 07/05/2024 7:45 AM CDT Respiratory Rate 18 07/05/2024 7:45 AM CDT Oxygen Saturation 96% 07/05/2024 7:45 AM CDT Inhaled Oxygen Concentration 97% 07/15/2013 4 :03 PM CDT Weight 58.5 kg (129 lb) 06/27/2024 8:19 AM CDT Height 162.6 cm (5' 4) 06/27/2024 8:19 AM CDT Body Mass Index 22.14 06/27/2024 8:19 AM CDT Plan of Treatment Health Maintenance Due Date Last Done Comments COLOGUARD (AGES 45-75) - COLON CA SCREENING 1976 COLON MONITORING 1976 COLONOSCOPY - COLON CA SCREENING 1976 CT COLONOGRAPHY - COLON CA SCREENING 1976 FLEX SIG - COLON CA SCREENING 1976 PNEUMOCOCCAL VACCINE (1 of 2 - PCV) 01/28/1995 MAMMOGRAM 09/13/2021 09/14/2019, 06/02/2018 COVID-19 VACCINE ( - 2023- season) 2023 HEPATITIS B VACCINE (2 of 3 - 19+ 3-dose series) 07/25/2024 06/27/2024 Colorectal Cancer Screening 03/17/2025 FIT - COLON CA SCREENING 03/17/2025 025, 01/23/2024, 01/26/2016 ZOSTER VACCINE (1 of 2) 01/28/2026 LIPID TESTING 07/11/2028 07/12/2023, 08/15, 08/24/2021, Additional history exists DTAP/TDAP/TD VACCINES (3 - Td or Tdap) 06/27/2034 06/27/2024, 08/30/2022 DEPRESSION SCREENING Completed 06/27/2024, 04/06/2024, 04/06/2024, Additional history exists HEPATITIS C SCREENING Completed 06/27/2024 , 09/12/2023, 10/08/2021, Additional history exists HIV SCREENING Completed 06/27/2024, 09/12/2023 HIB VACCINE Aged Out No longer eligi ble based on patient's age to complete this topic HPV VACCINE Aged Out No longer eligi ble based on patient's age to complete this topic MENINGOCOCCAL (Group B) VACCINE SHARED DECISION-MAKING Aged Out No longer eligible based on patient's age to complete this topic MENINGOCOCCAL GROUPS A/C/Y/W VACCINE Aged Out No longer eligible based on patient's age to complete this topic Procedures Procedure Name Priority Date/Time Associated Diagnosis Comments PTT STAT 06/27/2024 3:19 PM CDT PT-INR STAT 06/27/2024 3:[address] CERVICAL SPINE WO CONTRAST STAT 06/27/2024 2:52 PM CDT Blunt head trauma, initial encounter Injury of neck, initial encounter CT HEAD WO CONTRAST STAT 06/27/2024 2 :52 PM CDT Blunt head trauma, initial encounter Injury of neck, initial encounter SYPHILIS ANTIBODY CASCADING REFLEX STAT 06/27/2024 2:48 PM CDT TRICHOMONAS VAGINALIS BY TMA STAT 06/27/2024 10:37 AM CDT CHLAMYDIA + GC AMPLIFIED PROBE ADDL SRCS STAT 06/27/2024 10:37 AM CDT HEPATITIS SCREEN ACUTE STAT 10:36 AM CDT HIV-1 HIV-2 ANTIBODY + HIV P24 AG PANEL STAT 06/27/2024 10:36 AM CDT HCG URINE QUALITATIVE STAT 06/27/2024 10:36 AM CDT URINALYSIS REFLEX MICROSCOPIC REFLEX CULTURE STAT 06/27/2024 10:36 AM CDT TSH REFLEX FREE T4 STAT 06/27/2024 10 :36 AM CDT SALICYLATE LEVEL BLOOD STAT 10:36 AM CDT DRUG ABUSE URINE SCREEN 10 STAT 06/27/2024 10:36 AM CDT COMPREHENSIVE METABOLIC PANEL STAT 06/27/2024 10:36 AM CDT CBC W AUTO DIFFERENTIAL STAT 06/27/2024 10:36 AM CDT ALCOHOL ETHYL BLOOD STAT 06/27/2024 1 0:36 AM CDT ACETAMINOPHEN LEVEL STAT 06/27/2024 1 0:36 AM CDT CULTURE URINE STAT 06/27/2024 10:36 AM CDT OCCULT BLOOD FECES FIT IMMUNOASSAY Routine 03/17/2024 2:35 PM [employer] Generalized abdominal pain Diarrhea, unspecified type Bilious vomiting with nausea Epigastric pain LIPID PROFILE Routine 07/12/2023 6:20 AM CDT from Last 3 Months or Most Recently Relevant to Health Maintenance Results * PTT (06/27/2024 3:19 PM CDT) PTT 27.8 23.0 - 38.4 sec 06/27/2024 3:36 PM CDT [facility] Blood BLOOD SPECIMEN / Unknown Venipuncture / Unknown 06/27/2024 3:19 PM CDT 06/27/2024 3:25 PM CDT us Diego Hannah MD LAB - COAGULATION ORDERABLES Fin al Result Performing Organization Address [facility] de Phone Number [facility] [address] [place] [address] * (ABNORMAL) PT-INR (06/27/2024 3:19 PM CDT) PT 13.8 11.3 - 14.8 sec 06/27/2024 3:36 PM CDT [facility] INR 1.07(L) 2 - 3 06/27/2024 3:36 PM CDT [facility] Blood BLOOD SPECIMEN / Unknown Venipuncture / Unknown 06/27/2024 3:19 PM CDT 06/27/2024 3:25 PM CDT Narrative [facility] - 06/27/2024 3:36 PM CDT Recommended therapeutic INR ranges for Oral Anticoagulant Therapy: 2.0-3.0 For prevention of Thrombosis or Embolism and treatment of Venous Thrombosis. 2.5- 3.5 for prevention of Recurrent Embolism or treatment of patients with Mechanical Prosthetic Heart Valves. us Diego Hannah MD LAB - COAGULATION ORDERABLES Fin al Result Performing Organization Address [facility] de Phone Number [facility] [address] [place] [address] * CT CERVICAL SPINE WO CONTRAST [id number] (06/27/2024 2:52 PM CDT) Anatomical Region Laterality Modality Spine Computed Tomogra phy 06/27/2024 3:49 PM CDT Impressions 06/27/2024 4:22 PM CDT IMPRESSION: Multilevel facet arthropathy. Degenerative changes most evident C5-C6. This is superimposed upon a congenitally large bony spinal canal caliber. Edited by Jolly Pinto on 06/27/2024 3:56 PM > Interpreting Provider: Nishant Hodge MD on 06/27/2024 4:22 PM Narrative 06/27/2024 4:22 PM CDT PROCEDURE: CT CERVICAL SPINE WO CONTRAST DATE/TIME OF EXAM: 06/27/2024 2:53 PM CLINICAL INFORMATION: Neck pain. Indication: S09.8XXA: Blunt head trauma, initial encounter S19.9XXA: Injury of neck, initial encounter Additional History: COMPARISON: February 09, 2024. TECHNIQUE: CT of the cervical spine was performed utilizing standard protocol. Sagittal and coronal reformatted images were rendered. CT dose reduction technique was used, including Automated Exposure Control. FINDINGS: No prevertebral soft tissue swelling. No disruption of a cervical ring. No mastoid or middle ear effusion. Degenerative disc changes, as before, C5-C6 superimposed upon a congenitally large bony spinal canal caliber. With the posterior 2.4 mm disc spur complex, central canal caliber still remains adequate. Uncovertebral joint spurs at C6 are mild to moderate with mild C6 foraminal narrowing. Uncovertebral joint spurring C5 is mild. No splaying of the facet joints. No spinous process avulsion. The lateral masses of C1 and C2 are aligned. No apical pneumothorax. No jugular adenopathy. Procedure Note Nishant Hodge MD - 06/27/2024 PROCEDURE: CT CERVICAL SPINE WO CONTRAST DATE/TIME OF EXAM: 06/27/2024 2:53 PM CLINICAL INFORMATION: Neck pain. Indication: S09.8XXA: Blunt head trauma, initial encounter S19.9XXA: Injury of neck, initial encounter Additional History: COMPARISON: February 09, 2024. TECHNIQUE: CT of the cervical spine was performed utilizing standard protocol. Sagittal and coronal reformatted images were rendered. CT dose reduction technique was used, including Automated ExposureControl. FINDINGS: No prevertebral soft tissue swelling. No disruption of a cervical ring.No mastoid or middle ear effusion. Degenerative disc changes, as before,C5-C6 superimposed upon a congenitally large bony spinal canal caliber. Withthe posterior 2.4 mm disc spur complex, central canal caliber still remains adequate. Uncovertebral joint spurs at C6 are mild to moderate with mildC6 foraminal narrowing. Uncovertebral joint spurring C5 is mild. No splaying of the facetjoints. No spinous process avulsion. The lateral masses of C1 and C2 arealigned. No apical pneumothorax. No jugular adenopathy. IMPRESSION: Multilevel facet arthropathy. Degenerative changes most evident C5-C6.This is superimposed upon a congenitally large bony spinal canal caliber. Edited by Jolly Pinto on 06/27/2024 3:56 PM > Interpreting Provider: Nishant Hodge MD on 06/27/2024 4:22 PM Diego Hannah MD CT ORDERABLES Final Result * CT BRAIN WO CONTRAST [id number] (06/27/2024 2:52 PM CDT) Anatomical Region Laterality Modality Head Computed Tomogra phy 06/27/2024 3:02 PM CDT Impressions 06/27/2024 3:04 PM CDT Impression: No intracranial hemorrhage or edema No acute intracranial process. > Interpreting Provider: Nishant Hodge MD on 06/27/2024 3:04 PM Narrative 06/27/2024 3:04 PM CDT PROCEDURE: CT HEAD WO CONTRAST DATE/TIME OF EXAM: 06/27/2024 2:52 PM CLINICAL INFORMATION: Blunt head trauma, neck injury, head pain Indication: S09.8XXA: Blunt head trauma, initial encounter S19.9XXA: Injury of neck, initial encounter Additional History: COMPARISON: December 10, 2023 Technique: Axial images of the brain were obtained without contrast and reconstructions performed. Automated exposure control CT techniques including adjustment of the mA and/or kV according the patient's size were utilized. Viz AI used for large vessel occlusion and/or hemorrhage detection.. Findings: The ventricles are normal in size and configuration. The fourth ventricle is midline. The brainstem and suprasellar cisterns are normal. No intra-or extra-axial hemorrhage, mass displacement, or edema. The dennis-white matter differentiation is normal. The imaged paranasal sinuses and mastoid air cells are clear. The imaged globes and post-septal soft tissues are normal.' Nasal septal deviation. No dominant scalp hematoma Procedure Note Nishant Hodge MD - 06/27/2024 PROCEDURE: CT HEAD WO CONTRAST DATE/TIME OF EXAM: 06/27/2024 2:52 PM CLINICAL INFORMATION: Blunt head trauma, neck injury, head pain Indication: S09.8XXA: Blunt head trauma, initial encounter S19.9XXA: Injury of neck, initial encounter Additional History: COMPARISON: December 10, 2023 Technique: Axial images of the brain were obtained without contrast and reconstructions performed. Automated exposure control CT techniques including adjustment of the mA and/or kV according the patient's sizewere utilized. Viz AI used for large vessel occlusion and/or hemorrhage detection.. Findings: The ventricles are normal in size and configuration. Thefourth ventricle is midline. The brainstem and suprasellar cisterns are normal.No intra-or extra-axial hemorrhage, mass displacement, or edema. The dennis-white matter differentiation is normal. The imaged paranasal sinuses and mastoid air cells are clear. Theimaged globes and post-septal soft tissues are normal.' Nasal septal deviation.No dominant scalp hematoma Impression: No intracranial hemorrhage or edema No acute intracranial process. > Interpreting Provider: Nishant Hodge MD on 06/27/2024 3:04 PM us Diego Hannah MD CT ORDERABLES Final Result * SYPHILIS ANTIBODY CASCADING REFLEX (06/27/2024 2:48 PM CDT) Pathologist [facility] Treponema pallidum Antibody Non Reactive Non Reactive 06/27/2024 6:46 PM CDT [facility] Blood BLOOD SPECIMEN / Unknown Venipuncture / Unknown 06/27/2024 2:48 PM CDT 06/27/2024 2:52 PM CDT Narrative [facility] - 06/27/2024 6:46 PM CDT No laboratory evidence of syphilis infection. Note: Circulating antibodies may be low or undetectable in early infection. If recent exposure is suspected, redraw sample in 2-4 weeks and repeat testing. us Diego Hannah MD LAB - SEROLOGY ORDERABLES Final Result [facility] [address] [place], [place] [address] * (ABNORMAL) CHLAMYDIA + GC AMPLIFIED PROBE ADDL SRCS (06/27/2024 10:37 AM CDT) [facility] Chlamydia Amplified Probe Negative Negative 06/29/2024 2:26 PM CDT [facility] ([facility]) Comment: INTERPRETIVE INFORMATION: C. trachomatis by TMA This test is intended for medical purposes only and is not valid for the evaluation of suspected sexual abuse or for other forensic purposes. In certain contexts, culture may be required to meet applicable laws and regulations for diagnosis of C. trachomatis and N. gonorrhoeae infections. Per 2014 CDC recommendations, this test does not include confirmation of positive results by an alternative nucleic acid target. [employer] Type Urine 06/29/2024 2:26 PM CDT [facility] ([facility]) Source Urine 06/29/2024 2:26 PM CDT [facility] ([facility]) GC Amplified Probe Positive(A) Negative 06/29/2024 2:26 PM CDT [facility]) Comment: INTERPRETIVE INFORMATION: N. gonorrhoeae by TMA This test is intended for medical purposes only and is not valid for the evaluation of suspected sexual abuse or for other forensic purposes. In certain contexts, culture may be required to meet applicable laws and regulations for diagnosis of C. trachomatis and N. gonorrhoeae infections. Per 2014 CDC recommendations, this test does not include confirmation of positive results by an alternative nucleic acid target. Performed By: [employer] [address] [place] [address] Reading Coach: Nicholas Valdez MD, PhD CLIA Number: [id number] Microbiology URINE / Unknown Collection / Unknown 06/27/2024 10:37 AM CDT 06/27/2024 10:45 AM CDT Diego Hannah MD LAB - MICROBIOLOGY ORDERABLES Fi nal Result [facility] [place] [facility]) [address] [place] [address], [facility] * TRICHOMONAS VAGINALIS BY TMA (06/27/2024 10:37 AM CDT) [facility] [employer] Type Urine 06/29/2024 7:05 PM CDT [facility] [place] ([facility]) Source Urine 06/29/2024 7:05 PM CDT [employer] ([facility]) Trichomonas vaginalis by TMA Negative Negative 06/29/2024 7:05 PM CDT [facility] [place] ([facility]) Comment: Interpretive Information: Trichomonas vaginalis by TMA A negative result does not completely rule out infection with T. vaginalis. Results should be interpreted in conjunction with other clinical data. This test has not been validated for use with self-collected vaginal swab specimens from patients. This test is intended for medical purposes only and is not valid for the evaluation of suspected sexual abuse or for other forensic purposes. Performed By: [facility] [employer] [address] [place] [address] Reading Coach: Nicholas Valdez MD, PhD CLIA Number: [id number] Microbiology URINE / Unknown Collection / Unknown 06/27/2024 10:37 AM CDT 06/27/2024 10:45 AM CDT Diego Hannah MD LAB - MICROBIOLOGY ORDERABLES Fi nal Result [facility] [place] [facility]) [address] [place] [address] * (ABNORMAL) DRUG ABUSE URINE SCREEN 10 (06/27/2024 10:36 AM CDT) Pathologist [facility] Amphetamines Screen Urine Positive(A) Negative 06/27/2024 11:01 AM CDT [facility] Barbiturates Screen Urine Negative Negative 06/27/2024 11:01 AM CDT [facility] Benzodiazepines Screen Urine Negative Negative 06/27/2024 11:01 AM CDT [facility] Cannabinoids Screen Urine Negative Negative 06/27/2024 11:01 AM CDT [facility] Cocaine Screen Urine Negative Negative 06/27/2024 11:01 AM CDT [facility] Methadone Screen Urine Negative Negative 06/27/2024 11:01 AM CDT [facility] Opiate Screen Urine Negative Negative 06/27/2024 11:01 AM CDT [facility] Phencyclidine Screen Urine Negative Negative 06/27/2024 11:01 AM CDT [facility] Tricyclics Screen Urine Negative Negative 06/27/2024 11:01 AM CDT [facility] Methamphetamine Screen Urine Positive(A) Negative 06/27/2024 11:01 AM CDT [facility] Buprenorphine Screen Urine Negative Negative 06/27/2024 11:01 AM CDT [facility] Oxycodone Screen Urine Negative Negative 06/27/2024 11:01 AM CDT [facility] Urine URINE / Unknown Collection / Unknown 06/27/2024 10:36 AM CDT 06/27/2024 10:45 AM CDT Narrative [facility] - 06/27/2024 11:01 AM CDT This is a presumptive/unconfirmed test for medical treatment purposes only. Clinical consideration and professional judgment should be applied when using presumptive results. If confirmatory testing, such as gas chromatography-mass spectrometry (GC/MS), of any positive results of this test is required, please notify the laboratory within 7 days of collection. This test is intended only for monitoring or management of patients. It is not intended for use in job-related and/or legal-related purposes. The cutoff value for each analyte is: Barbiturates.....200 ng/mL Benzodiazepines......150 ng/mL Cocaine..........150 ng/mL Opiates..............100 ng/mL Phencyclidine.....25 ng/mL Tricyclics...........300 ng/mL Cannabinoid.......50 ng/mL Amphetamines.........500 ng/mL Methadone........200 ng/mL Methamphetamines.....500 ng/mL Buprenorphine.....10 ng/mL Oxycodone............100 ng/mL Diego Hannah MD LAB - URINE CHEMISTRY ORDERABLES Final Result Performing Organization Address City/State/[facility] Co de Phone Number [facility] [address] * HIV-1 HIV-2 ANTIBODY + HIV P24 AG PANEL (06/27/2024 10:36 AM CDT) Pathologist [facility] HIV1/2 Ab + P24 Ag NON-REACTI VE/NEGATIV E NON-REACTI VE/NEGATIV E 06/27/2024 11:30 AM CDT [facility] Blood BLOOD SPECIMEN / Unknown Venipuncture / Unknown 06/27/2024 10:36 AM CDT 06/27/2024 10:44 AM CDT Diego Hannah MD LAB - CHEMISTRY ORDERABLES Final Result [facility] [address] [place] [address], [facility] * (ABNORMAL) URINALYSIS REFLEX MICROSCOPIC REFLEX CULTURE (06/27/2024 10:36 AM CDT) Color UA [place](A) Yellow, Straw 06/27/2024 10:59 AM CDT [facility] Clarity UA Turbid(A) Clear 06/27/2024 10:59 AM CDT [facility] Glucose UA Negative Negative 06/27/2024 10:59 AM CDT [facility] Bilirubin UA Negative Negative 06/27/2024 10:59 AM CDT [facility] Ketone UA Negative Negative 06/27/2024 10:59 AM CDT [facility] Specific [place] UA 1.018 1.005 - 1.030 06/27/2024 10:59 AM CDT [facility] Blood UA 1+(A) Negative 06/27/2024 10:59 AM CDT [facility] pH UA 5.5 5.0 - 8.0 pH 06/27/2024 10:59 AM T [facility] Protein UA Trace(A) Negative 06/27/2024 10:59 AM CDT [facility] Urobilinogen UA Normal Normal mg/dL 06/27/2024 10:59 AM CDT [facility] Nitrite UA Negative Negative 06/27/2024 10:59 AM T [facility] Leukocyte UA 3+(A) Negative 06/27/2024 10:59 AM T [facility] RBC UA >100(A) 0 - 5 # /hpf 06/27/2024 10:59 AM T [facility] WBC UA >100(A) 0 - 5 # /hpf 06/27/2024 10:59 AM T [facility] Bacteria UA 3+(A) None Seen 06/27/2024 10:59 AM T [facility] Squamous Epithelial Cells >20(A) 0 - 5 /hpf 06/27/2024 10:59 AM T [facility] Mucus UA 4+ /LPF 06/27/2024 10:59 AM T [facility] Sperm UA Present(A) Absent 06/27/2024 10:59 AM CDT [facility] Reflex Status Culture to follow 06/27/2024 10:59 AM CDT [facility] Urine URINE SPECIMEN OBTAINED BY CLEAN CATCH PROCEDURE / Unknown Collection / Unknown 06/27/2024 10:36 AM CDT 06/27/2024 10:45 AM CDT us Diego Hannah MD LAB - URINALYSIS ORDERABLES Jinny l Result Performing Organization Address [facility] Co de Phone Number [facility] [address] [place] [address] * TSH REFLEX FREE T4 (06/27/2024 10:36 AM CDT) TSH 0.5666 0.35 - 4.94 uIU/mL 06/27/2024 11:26 AM CDT [facility] Comment:TSH Normal, Reflex F ree T4 Not Performed. Blood BLOOD SPECIMEN / Unknown Venipuncture / Unknown 06/27/2024 10:36 AM CDT 06/27/2024 10:45 AM CDT us Diego Hannah MD LAB - CHEMISTRY ORDERABLES Final Result Performing Organization Address [facility] de Phone Number [facility] [address] [place] [address] * HCG URINE QUALITATIVE (06/27/2024 10:36 AM CDT) hCG Qualitative Urine Negative Negative 06/27/2024 10:55 AM CDT [facility] Specific [place] UA 1.018 1.005 - 1.030 06/27/2024 10:55 AM CDT [facility] Urine URINE / Unknown Collection / Unknown 06/27/2024 10:36 AM CDT 06/27/2024 10:45 AM CDT us Diego Hannah MD LAB - URINALYSIS ORDERABLES Jinny l Result Performing Organization Address [facility] Co de Phone Number [facility] [address] [place] [address] * CULTURE URINE (06/27/2024 10:36 AM CDT) Culture Urine <10,000 CFU/mL urogenital hilary LINDA 06/29/2024 12:41 AM CDT [facility] MICROBIOLOGY Urine URINE SPECIMEN OBTAINED BY CLEAN CATCH PROCEDURE / Unknown Collection / Unknown 06/27/2024 10:36 AM CDT 06/27/2024 10:45 AM CDT Diego Hannah MD LAB - MICROBIOLOGY ORDERABLES Fi nal Result [facility] MICROBIOLOGY [address] [place], [place] [address], [facility] [phone] * CBC W AUTO DIFFERENTIAL (06/27/2024 10:36 AM CDT) Pathologist [facility] WBC 5.2 4.0 - 10.7 x10E9/L 06/27/2024 10:48 AM CDT [facility] RBC Count 4.21 3.90 - 5.20 x10E12/L 06/27/2024 10:48 AM CDT [facility] Hemoglobin 12.5 11.9 - 15.8 g/dL 06/27/2024 10:48 AM T [facility] Hematocrit 37.9 34.8 - 46.1 % 06/27/2024 10:48 AM [facility] MCV 90.0 80.0 - 98.0 fL 06/27/2024 10:48 AM [facility] MCH 29.7 26.7 - 33.6 pg 06/27/2024 10:48 AM [facility] MCHC 33.0 31.7 - 36.3 g/dL 06/27/2024 10:48 AM CDT [facility] RDW-CV 12.4 11.3 - 14.8 % 06/27/2024 10:48 AM T [facility] Platelet Count 241 150 - 420 x10E9/L 06/27/2024 10:48 AM [facility] MPV 9.1 7.8 - 11.4 fL 06/27/2024 10:48 AM [facility] Neutrophil % 52.4 41.0 - 74.0 % 06/27/2024 10:48 AM [facility] Lymphocyte % 37.8 17.0 - 47.0 % 06/27/2024 10:48 AM CDT [facility] Monocyte % 7.1 3.0 - 11.0 % 06/27/2024 10:48 AM CDT [facility] Eosinophil % 1.9 0.0 - 7.0 % 06/27/2024 10:48 AM T [facility] Basophil % 0.6 0.0 - 1.6 % 06/27/2024 10:48 AM T [facility] Immature Granulocytes % 0.2 0.0 - 1.0 % 06/27/2024 10:48 AM T [facility] Neutrophil Absolute 2.73 1.60 - 7.50 x10E9/L 06/27/2024 10:48 AM T [facility] Lymphocyte Absolute 1.97 1.00 - 4.40 x10E9/L 06/27/2024 10:48 AM T [facility] Monocyte Absolute 0.37 0.15 - 1.00 x10E9/L 06/27/2024 10:48 AM T [facility] Eosinophil Absolute 0.10 0.00 - 0.60 x10E9/L 06/27/2024 10:48 AM [facility] Basophil Absolute 0.03 0.00 - 0.13 x10E9/L 06/27/2024 10:48 AM T [facility] Blood BLOOD SPECIMEN / Unknown Venipuncture / Unknown 06/27/2024 10:36 AM CDT 06/27/2024 10:45 AM CDT Diego Hannah MD LAB - HEMATOLOGY ORDERABLES Jinny l Result Performing Organization Address City/State/[facility] Co de Phone Number [facility] [address] * (ABNORMAL) COMPREHENSIVE METABOLIC PANEL (06/27/2024 10:36 AM CDT) [facility] Glucose 88 70 - 125 mg/dL 06/27/2024 11:06 AM CDT [facility] Sodium 140 136 - 145 mmol/L 06/27/2024 11:06 AM T [facility] Potassium 3.7 3.4 - 5.1 mmol/L 06/27/2024 11:06 AM [facility] Chloride 108(H) 98 - 107 mmol/L 06/27/2024 11:06 AM [facility] CO2 23 22 - 29 mmol/L 06/27/2024 11:06 AM [facility] Calcium 9.24 8.4 - 10.2 mg/dL 06/27/2024 11:06 AM [facility] Anion Gap 9 6 - 16 mmol/L 06/27/2024 11:06 AM [facility] BUN 14.3 9.8 - 20.1 mg/dL 06/27/2024 11:06 AM [facility] Creatinine 0.65 0.57 - 1.11 mg/dL 06/27/2024 11:06 AM [facility] Alkaline Phosphatase 97 40 - 150 U/L 06/27/2024 11:06 AM [facility] ALT 12 7 - 30 U/L 06/27/2024 11:06 AM [facility] AST 24 5 - 34 U/L 06/27/2024 11:06 AM [facility] Protein Total 6.8 6.4 - 8.3 gm/dL 06/27/2024 11:06 AM [facility] Albumin 4.1 3.1 - 4.5 gm/dL 06/27/2024 11:06 AM [facility] Globulin Total 2.7 2.6 - 4.0 gm/dL 06/27/2024 11:06 AM [facility] Albumin/Globulin Ratio 1.5 0.9 - 1.6 06/27/2024 11:06 AM [facility] Bilirubin Total 0.4 0.2 - 1.2 mg/dL 06/27/2024 11:06 AM [facility] eGFR >90 >90 mL/min/1.7 3m2 06/27/2024 11:06 AM [facility] Comment:The GFR result was c alculated using the updated CKD-EPI Creatinine Equation (2020). Blood BLOOD SPECIMEN / Unknown Venipuncture / Unknown 06/27/2024 10:36 AM CDT 06/27/2024 10:45 AM T us Diego Hannah MD LAB - CHEMISTRY ORDERABLES Final Result Performing Organization Address City/State/[facility] Co de Phone Number [facility] [address] * ALCOHOL ETHYL BLOOD (06/27/2024 10:36 AM CDT) Ethanol <10.0 <10 mg/dL 06/27/2024 11:16 AM CDT [facility] Blood BLOOD SPECIMEN / Unknown Venipuncture / Unknown 06/27/2024 10:36 AM CDT 06/27/2024 10:45 AM CDT Narrative [facility] - 06/27/2024 11:16 AM CDT For Medical Use Only us Diego Hannah MD LAB - CHEMISTRY ORDERABLES Final Result Performing Organization Address City/[facility]/ZIP Co de Phone Number [facility] [address] [place] [address] * (ABNORMAL) SALICYLATE LEVEL BLOOD (06/27/2024 10:36 AM CDT) Salicylate <5.0(L) 15.0 - 30.0 mg/dL 06/27/2024 11:07 AM CDT [facility] Blood BLOOD SPECIMEN / Unknown Venipuncture / Unknown 06/27/2024 10:36 AM CDT 06/27/2024 10:44 AM CDT us Diego Hannah MD LAB - CHEMISTRY ORDERABLES Final Result [facility] [address] [place] [address] * HEPATITIS SCREEN ACUTE (06/27/2024 10:36 AM CDT) HAV Antibody IgM Non Reactive Non Reactive 06/27/2024 4:02 PM CDT [facility] HBsAg Non Reactive Non Reactive 06/27/2024 4:02 PM CDT [facility] HBc Antibody IgM Non Reactive Non Reactive 06/27/2024 4:02 PM CDT [facility] HCV Antibody Screen Non Reactive Non Reactive 06/27/2024 4:02 PM CDT [facility] Blood BLOOD SPECIMEN / Unknown Venipuncture / Unknown 06/27/2024 10:36 AM CDT 06/27/2024 1:24 PM CDT Narrative [facility] - 06/27/2024 4:02 PM CDT Non Reactive - Antibodies to Hepatitis C virus (HCV) were not detected, result does not exclude early acute HCV infection. us Diego Hannah MD LAB - CHEMISTRY ORDERABLES Final Result [facility] [address] [place], [place] [id number] [place] [address] * ACETAMINOPHEN LEVEL (06/27/2024 10:36 AM CDT) Acetaminophen <5.0 <=30.0 ug/mL 06/27/2024 11:06 AM CDT [facility] Blood BLOOD SPECIMEN / Unknown Venipuncture / Unknown 06/27/2024 10:36 AM CDT 06/27/2024 10:44 AM CDT Narrative [facility] - 06/27/2024 11:06 AM CDT Significantly reduced Acetaminophen recovery has been demonstrated in situations where testing has been performed immediately after introduction of N- acetylcysteine (NAC). us Diego Hannah MD LAB - CHEMISTRY ORDERABLES Final Result Performing Organization Address [facility]/ZIP Co de Phone Number [facility] [address] * (ABNORMAL) OCCULT BLOOD FECES FIT IMMUNOASSAY (03/17/2024 2:35 PM BELLHOP SERVICE CAPTAIN) Occult Blood 1 Collection Date 03/15/24 03/17/2024 4:59 PM BELLHOP SERVICE CAPTAIN [facility] Occult Blood 1 Collection Time 119903/17/2024 4:59 PM BELLHOP SERVICE CAPTAIN [facility] Occult Blood 2 Collection Date 03/16/24 03/17/2024 4:59 PM BELLHOP SERVICE CAPTAIN [facility] Occult Blood 2 Collection Time 1200 03/17/2024 4:59 PM BELLHOP SERVICE CAPTAIN [facility] Occult Blood 3 Collection Date 03/17/24 03/17/2024 4:59 PM BELLHOP SERVICE CAPTAIN [facility] Occult Blood 3 Collection Time 1200 03/17/2024 4:59 PM BELLHOP SERVICE CAPTAIN [facility] Occult Blood 1 Negative Negative 03/17/2024 4:59 PM BELLHOP SERVICE CAPTAIN [facility] Occult Blood 2 Positive(A) Negative 4:59 PM BELLHOP SERVICE CAPTAIN [facility] Occult Blood 3 Negative Negative 03/17/2024 4:59 PM BELLHOP SERVICE CAPTAIN [facility] Stool STOOL SPECIMEN / Unknown Collection / Unknown 03/17/2024 2:35 PM BELLHOP SERVICE CAPTAIN 03/17/2024 4:46 PM BELLHOP SERVICE CAPTAIN Manda Brooks TOMOGRAPHIC TECH-TERRA [employer] LAB - BODY FLUID ORDERABLE S Final Result [facility] [address] [place], [place] [address] * (ABNORMAL) LIPID PROFILE (07/12/2023 6:20 AM CDT) [facility] Cholesterol 119 <200 mg/dL 07/12/2023 6:49 AM CDT [facility] Triglycerides 72 <150 mg/dL 07/12/2023 6:49 AM CDT [facility] HDL Cholesterol 46 >40 mg/dL 4 6:49 AM CDT [facility] Chol HDL Ratio 2.6 1.0 - 6.0 07/12/2023 6:49 AM CDT [facility] LDL Calculated 59(L) 65 - 130 mg/dL 07/12/2023 6:49 AM CDT [facility] VLDL Calculated 14 <=30 mg/dL 4 6:49 AM CDT [facility] Blood BLOOD SPECIMEN / Unknown Lab Venipuncture / Unknown 07/12/2023 6:20 AM CDT 07/12/2023 6:27 AM CDT Narrative [facility] - 07/12/2023 6:49 AM CDT Lipid Profile Comment: CHOLESTEROL LEVEL..................CLINICAL INTERPRETATION LESS THAN 200 MG/DL..............................DESIRABLE 200-239 MG/DL..............................BORDERLINE HIGH GREATER THAN 240 MG/DL................................HIGH LDL-CHOLESTEROL LEVEL..............CLINICAL INTERPRETATION LESS THAN 100 MG/DL................................OPTIMAL 100-129 MG/DL.................................NEAR OPTIMAL GREATER THAN 160 MG/DL...........................HIGH RISK HDL RISK LEVEL GREATER THEN 60 MG/DL............................DECREASED 40-60 MG/DL........................................AVERAGE LESS THAN 40 MG/DL...............................INCREASED TRIGLYCERIDE LEVEL..................CLINICAL INTERPRETATION LESS THAN 150 MG/DL...............................DESIRABLE 150-199 MG/DL...............................BORDERLINE HIGH 200-499 MG/DL..........................................HIGH GREATER THAN 500..................................VERY HIGH THE NATIONAL CHOLESTEROL EDUCATION PROGRAM HAS SET THE ABOVE GUIDELINES (REFERANCE VALUES) FOR CHOLESTEROL AND HDL. RISK ASSOCIATED WITH CHOLESTEROL/HDL RATIOS RISK....................MALE RATIO.............FEMALE RATIO 1/2 AVERAGE.................<3.4.......................<3.3 LOW RISK.................... 4.0 ...................... 3.8 AVERAGE..................... 5.0 ...................... 4.5 2X AVERAGE.................. 9.5 ...................... 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 12/10/23; 07/11/2023 12/10/2023 Insurance [employer] [facility] * Guarantor: E-SCREEN,SOIL Account Type Relation to Patient Date of Phone Billing Address Company Employer [employer] [address] Advance Directives Documents on File Type Date 

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
--- OUTSIDE RECORDS SUMMARY | 2024-07-13 20:52 | XMS_ITS | Clinical Summary ---
Author Organization [facility] Address [address] [place] [address] Care Team Providers Care Investigation Manager Name Role Phone Provider, Not On File [...] Department Care Team Description 05/22/2024 Results Follow-Up [facility] Emergency Dept. Services [address] [place] [address] Herlinda Sanchez LPN Culture, Urine 05/19/2024 11:16 PM CDT - 05/20/2024 10:22 AM CDT Emergency [facility] Emergency Dept. [place] [address] [place] [address] Makayla Carlisle MD Methamphetamine abuse Discharge Disposition: Dis/Trans to Psych Hosp/Psych Unit 05/19/2024 Travel 05/10/2024 3:38 PM CDT - 05/10/2024 6:00 PM CDT Emergency [facility] Emergency Dept. Services [address] [place] [address] Makayla Carlisle MD Chronic right shoulder pain Discharge Disposition: Discharged to home or Selfcare 05/10/2024 Travel 05/09/2024 7:10 PM CDT - 05/09/2024 8:31 PM CDT Emergency [facility] Emergency Dept. 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1975 Requested By: MAKAYLA CARLISLE Order Number: [id number] Reading MD: Cruz Steven MD Measurements Intervals [place] Rate: 60 P: 84 RI: 141 QRS: 74 QRSD: 94 T: 63 QT: 441 QTc: 441 Interpretive Statements Sinus rhythm Consider left ventricular hypertrophy Electronically Signed On 05-21-2024 14:12:43 CDT by Cruz Steven MD Narrative Procedure Note Cruz Steven MD - 05/21/2024 IMPRESSION: [facility] [address] [place] [address] Test Date: 2024-05-20 Pat Name: JENNIFER MOCTEZUMA Department: Room: [facility] Gender: F 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 de Phone Number EXTERNAL EKG * Quinn Top Tube (05/20/2024 12:19 AM CDT) Blood No Phlebotomy Charged / Unknown 05/20/2024 12:19 AM CDT 05/20/2024 12:22 AM CDT us Makayla Carlisle MD CHEMISTRY ORDERABLES Final Res ult Performing Organization Address [facility] Co de Phone Number [facility] [address] [address], * Blue Top Tube (05/20/2024 12:19 AM CDT) Blood No Phlebotomy Charged / Unknown 05/20/2024 12:19 AM CDT 05/20/2024 12:22 AM CDT us Makayla Carlisle MD HEMATOLOGY ORDERABLES Final Re sult Performing Organization Address [facility] de Phone Number [facility] [address] [place] [address], [place] [phone] * (ABNORMAL) CBC with Auto Differential (05/20/2024 12:19 AM [facility]) [facility] Signature WBC 6.85 3.88 - 10.35 10(3)/mcL 05/20/2024 12:[address] [facility] RBC 3.72(L) 3.78 - 5.29 10(6)/mcL 05/20/2024 12:[address] [facility] HEMOGLOBIN (HGB) 11.2(L) 12.0 - 16.0 g/dL 05/20/2024 12:[address] [facility] HEMATOCRIT (HCT) 34.7(L) 37.0 - 47.0 % 05/20/2024 12:[address] [facility] MCV 93.3 82.0 - 100.0 fL 05/20/2024 12:[address] [facility] MCH 30.1 25.9 - 32.7 pg 05/20/2024 12:[address] [facility] MCHC 32.3 31.0 - 34.1 g/dL 05/20/2024 12:[address] [facility] RDW 12.9 11.8 - 15.7 % 05/20/2024 12:[address] [facility] PLATELET COUNT 192 150 - 450 10(3)/mcL 05/20/2024 12:[address] [facility] MPV 10.5 8.7 - 12.2 fL 05/20/2024 12:[address] [facility] NEUTROPHILS 59.7 40.0 - 75.0 % 05/20/2024 12:[address] [facility] IMMATURE GRANULOCYTE % 0.3 0.0 - 2.0 % 05/20/2024 12:[address] [facility] LYMPHOCYTES 30.5 20.0 - 40.0 % 05/20/2024 12:[address] [facility] MONOCYTES 7.2 0.0 - 10.0 % 05/20/2024 12:[address] [facility] EOSINOPHILS 1.9 0.0 - 4.0 % 05/20/2024 12:[address] [facility] BASOPHILS 0.4 0.0 - 1.0 % 05/20/2024 12:[address] [facility] ABSOLUTE NEUTROPHILS 4.09 1.50 - 8.00 10(3)/mcL 05/20/2024 12:[address] [facility] Blood Venipuncture / Unknown 05/20/2024 12:19 AM CDT 05/20/2024 12:22 AM CDT us Makayla Carlisle MD HEMATOLOGY ORDERABLES Final Re sult Performing Organization Address [facility]/ZIP Co de Phone Number [facility] [address] [place] [address], [place] [phone] * (ABNORMAL) Acetaminophen Level (05/20/2024 12:19 AM CDT) ACETAMINOPHEN <10.0(L) 10.0 - 30.0 mcg/mL 05/20/2024 12:[address] [facility] Blood Venipuncture / Unknown 05/20/2024 12:19 AM CDT 05/20/2024 12:22 AM CDT us Makayla Carlisle MD CHEMISTRY ORDERABLES Final Res ult Performing Organization Address [facility]/ZIP Co de Phone Number [facility] [address] [place] [address], [place] [phone] * Thyroid Stimulating Hormone (TSH) (05/20/2024 12:19 AM CDT) TSH 0.837 0.465 - 4.680 mIU/L 05/20/2024 1:[address] [facility] Blood Venipuncture / Unknown 05/20/2024 12:19 AM CDT 05/20/2024 12:22 AM CDT us Makayla Carlisle MD CHEMISTRY ORDERABLES Final Res ult Performing Organization Address City/[facility] Co de Phone Number [facility] [address] [place] [address], [place] [phone] * (ABNORMAL) Salicylate Level (05/20/2024 12:19 AM CDT) SALICYLATE 2.8(L) 10.0 - 20.0 mg/dL 05/20/2024 12:[address] [facility] Blood Venipuncture / Unknown 05/20/2024 12:19 AM CDT 05/20/2024 12:22 AM CDT Makayla Carlisle MD CHEMISTRY ORDERABLES Final Res ult Performing Organization Address [facility] de Phone Number [facility] [address] [place] [address], [place] [phone] * Magnesium (MG) (05/20/2024 12:19 AM CDT) MAGNESIUM 2.2 1.6 - 2.3 mg/dL 05/20/2024 12:[address] [facility] Blood Venipuncture / Unknown 05/20/2024 12:19 AM CDT 05/20/2024 12:22 AM CDT Makayla Carlisle MD CHEMISTRY ORDERABLES Final Res ult Performing Organization Address [facility] Co de Phone Number [facility] [address] [place] [address], [place] [phone] * ETOH Level (05/20/2024 12:19 AM CDT) ETHANOL <10 0 - 79 mg/dL 05/20/2024 12:[address] [facility] ETHANOL <0.010 0.000 - 0.079 G/dL 05/20/2024 12:[address] [facility] Blood Venipuncture / Unknown 05/20/2024 12:19 AM CDT 05/20/2024 12:22 AM CDT us Makayla Carlisle MD CHEMISTRY ORDERABLES Final Res ult [facility] [address] [place] [address], [place] [phone] * (ABNORMAL) CMP (05/20/2024 12:19 AM CDT) SODIUM 139 137 - 145 mmol/L 05/20/2024 12:[address] [facility] POTASSIUM 3.6 3.5 - 5.1 mmol/L 05/20/2024 12:[address] [facility] CHLORIDE 108(H) 98 - 107 mmol/L 05/20/2024 12:[address] [facility] CO2, VENOUS 22 22 - 30 mmol/L 05/20/2024 12:[address] [facility] GLUCOSE 83 70 - 106 mg/dL 05/20/2024 12:[address] [facility] BUN 14 7 - 17 mg/dL 05/20/2024 12:[address] [facility] CREATININE, BLOOD 0.60 0.52 - 1.04 mg/dL 05/20/2024 12:[address] [facility] ALKALINE PHOSPHATASE 102 38 - 126 U/L 05/20/2024 12:[address] [facility] SGPT (ALT) 21 1 - 34 U/L 05/20/2024 12:[address] [facility] SGOT (AST) 26 14 - 36 U/L 05/20/2024 12:[address] [facility] ALBUMIN 3.9 3.5 - 5.0 g/dL 05/20/2024 12:[address] [facility] T BILI 0.5 0.2 - 1.3 mg/dL 05/20/2024 12:[address] [facility] TOTAL PROTEIN 6.6 6.3 - 8.2 g/dL 05/20/2024 12:[address] [facility] CALCIUM 8.6 8.4 - 10.2 mg/dL 05/20/2024 12:[address] [facility] ANION GAP 9.0 6.0 - 16.0 mmol/L 05/20/2024 12:[address] [facility] BUN/CREATININE RATIO 23 7 - 30 ratio 05/20/2024 12:[address] [facility] A/G RATIO 1.4 0.9 - 2.3 05/20/2024 12:[address] [facility] GLOBULIN 2.7 2.2 - 3.9 g/dL 05/20/2024 12:[address] [facility] GFR, ESTIMATED >60 >60 05/20/2024 12:[address] [facility] OSMOLALITY 277 273 - 304 mOsm/kg 05/20/2024 12:[address] [facility] Blood Venipuncture / Unknown 05/20/2024 12:19 AM CDT 05/20/2024 12:22 AM CDT Makayla Carlisle MD CHEMISTRY ORDERABLES Final Res ult [facility] [address] [address], [place] [phone] * COVID-19 ID Now ELDA (05/20/2024 12:13 AM CDT) COVID 19 ELDA NOT DETECTED Negative 05/20/2024 12:[address] [facility] Nasopharyngeal Non-Phlebotomy Collection / Unknown 05/20/2024 12:13 AM CDT 05/20/2024 12:30 AM CDT Makayla Carlisle MD IMMUNOLOGY ORDERABLES Final Re sult [facility] [address] [place] [address], [place] [phone] * (ABNORMAL) Urinalysis w/ Reflex (05/20/2024 12:05 AM CDT) Only the most recent of2 resultswithin the time period is included. URINALYSIS COLOR Yellow Yellow, Light Yellow 05/20/2024 12:[address] [facility] URINALYSIS CLARITY Clear Clear 05/20/2024 12:[address] [facility] URINE PH 5.5 5.0 - 8.0 05/20/2024 12:[address] [facility] SPECIFIC GRAVITY >=1.030(H) 1.005 - 1.020 05/20/2024 12:[address] [facility] PROTEIN, RANDOM URINE 1+(A) Negative 05/20/2024 12:[address] [facility] URINE GLUCOSE, QUAL Negative Negative 05/20/2024 12:[address] [facility] URINE KETONES 2+(A) Negative 05/20/2024 12:[address] [facility] URINE BLOOD Trace-Intact (A) Negative anish/ul 05/20/2024 12:[address] [facility] NITRITE Negative Negative 05/20/2024 12:[address] [facility] URINE BILIRUBIN Negative Negative 12:[address] [facility] UROBILINOGEN 0.2 0.2 , 1.0 , Normal mg/dL 05/20/2024 12:[address] [facility] WBC ESTERASE 2+(A) Negative 05/20/2024 12:[address] [facility] Urine URINE SPECIMEN OBTAINED BY CLEAN CATCH PROCEDURE / Unknown Non-Phlebotomy Collection / Unknown 05/20/2024 12:05 AM T 05/20/2024 12:30 AM CDT us Makayla Carlisle MD URINE ORDERABLES Final Result [facility] [address] [address], [place] [phone] * (ABNORMAL) Urinalysis (UA) Microscopic Only (05/20/2024 12:05 AM CDT) Only the most recent of2 resultswithin the time period is included. URINE RBC'S 0-2(A) None /hpf 05/20/2024 12:[address] [facility] WBC (Urine) 11-25(A) None /hpf 05/20/2024 12:[address] [facility] BACTERIA, URINE 2+(A) None Seen /hpf 05/20/2024 12:[address] [facility] SQUAMOUS EPITHELELIAL CELLS 6-10(A) None /hpf 05/20/2024 12:[address] [facility] Urine URINE SPECIMEN OBTAINED BY CLEAN CATCH PROCEDURE / Unknown Non-Phlebotomy Collection / Unknown 05/20/2024 12:05 AM CDT 05/20/2024 12:30 AM CDT us Makayla Carlisle MD URINE ORDERABLES Final Result Performing Organization Address City/State/[facility] Co de Phone Number [facility] [address] [facility] [place] [address], * Culture, Urine (05/20/2024 12:05 AM CDT) CULTURE RESULTS METHICILLIN RESISTANT STAPHYLOCOCCUS AUREUS STH MICROSCAN [place] DXM 1040 05/22/2024 11:[address] [facility] Urine URINE SPECIMEN OBTAINED BY CLEAN [...] ORDERAB LES Final Result Performing Organization Address [facility]/State/ZIP Co de Phone Number [facility] [address] [facility] [place] [address], * (ABNORMAL) Urine Drug Screen (05/20/2024 12:05 AM CDT) Only the most recent of2 resultswithin the time period is included. [facility] UR PHENCYCLIDINE NEGATIVE NEGATIVE 05/21/19 12:[address] [facility] UR BENZODIAZEPINES NEGATIVE NEGATIVE 2024 12:[address] [facility] UR COCAINE METABOLITE NEGATIVE NEGATIVE 05/20/2024 12:[address] [facility] UR AMPHETAMINE POSITIVE(A) NEGATIVE 12:[address] [facility] UR CANNABINOID NEGATIVE NEGATIVE 05/20/2024 12:[address] [facility] UR OPIATES NEGATIVE NEGATIVE 05/20/2024 12:[address] [facility] UR BARBITURATE NEGATIVE NEGATIVE 05/20/2024 12:[address] [facility] UR TRICYCLIC ANTIDEPRESS SCREEN NEGATIVE NEGATIVE 05/20/2024 12:[address] [facility] UR ECSTASY POSITIVE(A) NEGATIVE 05/20/2024 12:[address] [facility] UR OXYCODONE NEGATIVE NEGATIVE 05/20/2024 12:[address] [facility] UR PROPOXYPHENE NEGATIVE NEGATIVE 12:[address] [facility] Urine Non-Phlebotomy Collection / Unknown 05/20/2024 12:05 AM CDT 05/20/2024 12:30 AM CDT us Makayla Carlisle MD URINE ORDERABLES Final Result [facility] [address] [facility] [place] [address], * XR LUMBAR SPINE 2 OR 3 [...] No pneumothorax. Lumbar spine: There are 5 lhy-gby-vjcvgxh lumbar vertebral bodies. There is moderate multilevel [...] Conner Dalton M.D. MJ: DOMINICK Report ID: [id number] Reading Location: [id number] Procedure Note Conner Dalton MD - 05/10/2024 [...] No pneumothorax. Lumbar spine: There are 5 pqp-nlx-mtdfnko lumbar vertebral bodies. There is moderate multilevel [...] Conner Dalton M.D. MJ: DOMINICK Report ID: [id number] Reading Location: [id number] us Makayla Carlisle MD IMG DIAGNOSTIC ORDERABLES [...] No pneumothorax. Lumbar spine: There are 5 ojh-pmv-ofqhcbg lumbar vertebral bodies. There is moderate multilevel [...] Conner Dalton M.D. MJ: DOMINICK Report ID: [id number] Reading Location: [id number] Procedure Note Conner Dalton MD - 05/10/2024 [...] No pneumothorax. Lumbar spine: There are 5 hlf-ydy-fwywhek lumbar vertebral bodies. There is moderate multilevel [...] Conner Dalton M.D. MJ: DOMINICK Report ID: [id number] Reading Location: [place] [address] Makayla Carlisle MD IMG DIAGNOSTIC ORDERABLES Jinny l Result from Last 3 Months Additional Health Concerns Infection Onset Date Last Indicated MRSA 05/20/2024 05/20/2024 Insurance MEDICAID [employer] Member Subscriber Plan / Payer (Ef fective for All Dates) Name:Jennifer Moctezuma Member ID:[id number] Relation to Subscriber:Self Name:Jennifer Moctezuma Subscriber ID:[id number] Payer ID:PAPER Group ID:[id number] Type:Not on file Address: [address] [place] [id number] Care Teams Investigation Manager Relationship Specialty Start Date End Date Provider, Not On File [place] PCP - General 10/13/13
--- OUTSIDE RECORDS SUMMARY | 2024-07-13 20:52 | XMS_ITS | Encounter Summary ---
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 Services [address] [place] [address] Herlinda Sanchez LPN [place] Culture, Urine Social History Tobacco Use Types [...] documented as of this encounter Care Teams Boat Outfitter Relationship Specialty Start Date End Date Provider, Not On File [place] PCP - General 10/13/13 documented as of this encounter
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
--- OUTSIDE RECORDS SUMMARY | 2024-07-13 20:53 | XMS_ITS | Data Portability ---
Author Organization [place] - [facility] Address [address] [place] [address] Assessment Encounter Date Assessment Date Assessment LastModified by Organization Details LastModified Time 12/01/2022 12/01/2022 ADDENDUM: 12/24/2022 EGD Al nella 10/10/21 scattered irritability erythema linear erosions prepyloric and second portion of duodenum. Biopsies neg for H pylori or stigmata of Celiac or infection. Was considering Repeat EGD after that procedure (Dr. Dennis) [id number] Not available 12/24/2022 13:46:43 Plan of Treatment Reminders Order Date Submit Date Provider Last Modified By Organization Details Last Modified Time Details Appointments None recorded. Lab None recorded. Referral gastroenter ologist referral - referral evaluate and treat hx of SMA s/p surgery 2011 with partial small bowel obstruction on CT abdominal bloating, pain, 2022 023 [facility] Dept Of Endoscopy, [address] [place], [address], 3 15:14:24 Procedures None recorded. Surgeries None recorded. Imaging None recorded. Medication Orders None recorded. Patient TargetsNo targets recorded. Patient InstructionsNo instructions recorded. 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 Nicole Crouch zoraida, [facility] 3 12:51:15 Swollen abdomen 09795809 Active 2022 ALEJANDRINA PINTO PA-C [address] [place], [address] , [facility] 3 13:20:14 Decreased bowel sounds 29520967 Active 2022 ALEJANDRINA PINTO PA-C [address] [place], [address] , [facility] 3 13:20:21 Diarrhea 37075782 Active 2022 ALEJANDRINA PINTO PA-C [address] [place], [address] , [facility] 3 13:27:45 Hematochez ia 796617339 Active 2022 ALEJANDRINA PINTO PA-C [address] [place], [address] , [facility] 3 13:27:51 History of bowel obstructio n 1197500794024 08 Active 2022 ALEJANDRINA PINTO PA-C [address] [place], [address] , [facility] 3 07:17:38 Bipolar disorder 38822436 Active 2022 ALEJANDRINA PINTO PA-C [address] [place], [address] , [facility] 3 07:21:18 Partial obstructio n of small bowel 156816826 Active 2022 ALEJANDRINA PINTO PA-C [address] [place], [address] , [facility] 3 11:18:18 Diarrheal disorder 282259943 Active Not Available [facility] 3 16:34:25 Nausea and vomiting 89990103 Active Not Available [facility] 3 16:34:25 Abdominal pain 15935352 Active Not Available [facility] 3 16:34:25 Problem Notes None recorded. Medical Equipment None Reported. Allergies Allergen ID Allergen Name Allergen Category Reaction Reaction Severity Criticality Documentation Date Start Date Code Code System Note Provider Name and Address Organization Details Recorded Time 207562 tramadol medicatio n Not available Not available Not available 12/08/2022 67417 RxNorm [facility] 3 10:57:04 13289 Toradol medicatio n Not available Not available Not available 02/21/2022 23862 RxNorm Not Available [facility] 3 16:35:14 48974 sulfameth oxazole / trimethop rim medicatio n Not available Not available Not available 02/21/2022 49708 RxNorm Not Available [facility] 3 16:35:14 53297 Premarin medicatio n Not available Not available Not available 02/21/2022 67466 6 RxNorm Not Available [facility] 3 16:35:14 95820 nortripty line medicatio n Not available Not available Not available 02/21/2022 7531 RxNorm Not Available [facility] 3 16:35:14 77208 Keppra medicatio n Not available Not available Not available 02/21/2022 33768 7 RxNorm Not Available [facility] 3 16:35:14 59233 Vaccine product containin g only Influenza virus antigen (medicina l product) medicatio n Not available Not available Not available 02/21/2022 11166 34068 105 SNOMED Not Available [facility] 3 16:35:14 46297 influenza virus vaccine, specific Not available Not available Not available Not available 02/21/2022 05515 UNK Not Available [facility] 3 16:35:14 28668 gabapenti n medicatio n Not available Not available Not available 02/21/2022 04238 RxNorm Not Available [facility] 3 16:35:14 55373 Effexor medicatio n Not available Not available Not available 02/21/2022 58099 2 RxNorm Not Available [facility] 3 16:35:14 Medications Name Sig Start Date [...] in Arterial blood by Pulse oximetry Systolic blood pressure Diastolic blood pressure Provider Name and Address Organization Details Last Updated DateTime 3 162.56 cm 22.7 kg/m2 28262.1 9 g 76 /min 76 /min 96 % 96 % 120 mm[Hg] 68 mm[Hg] Nicole Crouch [facility] 3 12:38:45 Date Recorded Body height Body mass index (BMI) Body weight Heart rate Heart rate Oxygen saturation Oxygen saturation in Arterial blood by Pulse oximetry Systolic blood pressure Diastolic blood pressure Provider Name and Address Organization Details Last Updated DateTime 3 162.56 cm 22.6 kg/m2 45693.4 g 72 /min 72 /min 98 % 98 % 120 mm[Hg] 82 mm[Hg] Nicole Crouch [facility] 3 10:55:45 Social History Question Answer Notes LastModified by Organizat ion Details LastModified Time Tobacco Smoking Status [facility] 12/01/2022 12:45:09 What Is Your Level Of Caffeine Consumption? Occasional Information not available 12/01/2022 Which Illicit Or Recreational Drugs Have You Used? Marijuana [email or web address] Information not available 12/01/2022 Have You Used IV Drugs? Yes [email or web address] Information not available 12/01/2022 Sex: Unknown Functional Status Question Answer Note LastModified by [employer] ion Details LastModified Time Do you use any illicit or recreational drugs? Yes [email or web address] Information not available 12/01/2022 What is your level of alcohol consumption? 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 Family History Nothing Reported. Medical History No medical history recorded. Gynecological HistoryNo gynecological history recorded. Obstetrics History GPAL:G 0 P 0 0 0 0 Past Encounters Encounter ID Performer Location Encounter Start Date Encounter Closed Date Diagnosis/Indication Diagnosis SNOMED-CT Code Diagnosis ICD10 Code Diagnosis Note [id number] Shira Benoit MD [facility] [address] [address] 12/01/2022 12:25:53 12/01/2022 14:03:19 History of surgery 618609609 Z98.890 proximal small bowel partial resection in past.likel y at least partial sbo at [facility]. Will send to ER for evaluation since she has severe abdominal pain and distension and paucity of bowel sounds and c/o bloody diarrhea Spoke with Nury RN in ER and report given Abdominal pain 80225015 R10.9 Swollen abdomen 59639847 R19.00 Decreased bowel sounds 91915221 R19.15 Diarrhea 22839574 R19.7 Hematochezia 000382640 K 92.1 [id number] Shira Benoit MD [facility] [address] [address] 12/08/2022 10:48:47 12/08/2022 11:27:16 Abdominal pain 99435070 R10.9 discontinu e the dicyclomin e as it is working against the small bowel motility History of bowel obstruction 2363747314 61953 Z87.19 with hx of proximal small bowel Nausea and vomiting 1693 1999 R11.2 Has reglan on med list. prescribed 12/04/22 on d/c from hospital Is on zofran 4mg as well along with promethazi ne alternatin g. She also was started on Carafate QID taking all but not helping. Bipolar disorder 5192326 4 F31.9 Partial ob struction of small bowel 604576189 K56.690 will refer to [facility] for abdominal pain, n/v, at least partial sbo Health Concerns Section Related Observation LastModified by Organization Detai ls LastModified Time None Recorded Concern Status LastModified by Organization Details LastModified Time None Recorded Advance Directives Directive None Recorded Payers Insurance Date Sequence Insurance Name Policy Number Policy Dunne Covered Member ID Dunne Member ID Guarantor Name 05/23/2024 1 [place] DEPARTMENT [place] A[place] Jennifer Sahnioer [id number] Jennifer Sahnioer 05/23/2024 1 [facility] - DOS ON OR AFTER 20 (MEDICAID REPLACEMENT - HMO) Jennifer Sahinoer [id number] Jennifer Sahnioer Notes Date Note Type Note Provider Name [...] resection:in the past for kink in my bowelLast EGD Dr. Dennis [address] Dennis 1 year ago Will ask for records from previous GI Dr. Dennis.Negative lipase/amylase in most recent hospital stay.Pt states last seen by Dr. 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 Nur at [facility] but they did not feel that she needed MRCP she states.She currently c/o abdominal pain throughout, abdominal distension, loose stool (last bm yesterday loose with blood admixed) c/o nausea . Has lost 5 # in the last week due to hurts abdomen to eat.Very nauseated no vomiting. Is taking Zofran BID Also was started on Reglan taking TID ALEJANDRINA PINTO PA-C [address] [place], [address], [facility] 12/24/2022 13:46:46 12/08/2022 text/html Previously seen 12/01 as new patient hospital follow up. Has previously seen Dr. Abhi [...] resection:in the past for kink in my bowelLast EGD Dr. Dennis 1 year agoLast Colonoscopy [...] abdominal pain, occasional nausea. ALEJANDRINA PINTO PA-C [address] [place], [address], [facility] 01/02/2023 17:44:16 OBGyn Episode No OBEpisode recorded.
--- OUTSIDE RECORDS SUMMARY | 2024-07-13 20:53 | XMS_ITS | Encounter Summary ---
Author Organization [facility] Address [address] [place] [address] Care Team Providers Care Supervisory Geographer Name Role Phone Mikael Saxena MD Primary Care Provider [phone] Wali Shipman SPORTS BROADCASTER Unavailable [phone] Ana Maria Wheeler RN Unavailable [phone] [facility]-/-[facility] Primary Care Provider Unavailable Reason for Visit * Reason Onset Date Comments Refill Request 11/04/2022 Encounter Details Date Type Department Care Team (Late st Contact Info) Description 11/04/2022 Refill [facility] Medical [facility] - Family Medicine [address] [place] [phone] Mikael Saxena MD [address] [address] Refill Request Social History Tobacco Use Types Packs/Day Years Used Date Smoking Tobacco: Never Smokeless Tobacco: Never Comments:nonsmoker Alcohol Use Standard Drinks/Week Comments Not Currently 0 (1 standard drink = 0.6 oz pur e alcohol) only occasional AUDIT-C Answer Date Recorded Q1: How often do you have a drink containing alcohol? Never 09/11/2022 Q2: How many drinks containi ng alcohol do you have on a typical day when you are drinking? Patient does not drink 3 Q3: How often do you have si x or more drinks on one occasion? Never 09/11/2022 Overall Financial Resource Strain (CARDIA) Answe r Date Recorded How hard is it for you to pa y for the very basics like food, housing, medical care, and heating? Somewhat hard 08/31/2022 PHQ-2 Answer Date Recorded PHQ2 TOTAL SCORE 6 09/11/2022 [facility] - Occupational Stress Questionnaire Answer Date Recorded Do you feel stress - tense, restless, nervous, or anxious, or unable to sleep at night because your mind is troubled all the time - these days? Very much 08/31/2022 Hunger Vital Sign Answer Date Recorded Within the past 12 months, y ou worried that your food would run out before you got the money to buy more. Patient declined Within the past 12 months, t he food you bought just didn't last and you didn't have money to get more. Patient declined PRAPARE - Transportation Answer Date Re corded In the past 12 months, has l ack of transportation kept you from medical appointments or from getting medications? Patient declined 08/31/2022 In the past 12 months, has l ack of transportation kept you from meetings, work, or from getting things needed for daily living? Patient declined 08/31/2022 Housing Stability Vital Sign Answer Adelso e Recorded In the last 12 months, was t here a time when you were not able to pay the mortgage or rent on time? Patient refused 09/01/19 23 In the last 12 months, how many places have you lived? 2 08/31/2022 In the last 12 months, was t here a time when you did not have a steady place to sleep or slept in a snf (including now)? Patient refused 08/31/2022 Comments No Sex and Gender Information Value Date Recorded Sex Assigned at Not on file Legal Sex 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 SOCIAL WORKER ASSISTANT Gender Identity Not on file Sexual Orientation Not on file Occupation Industry Job Start Date Job End Date [place] [employer] Not on file Not on file Not on file documented as of this encounter Functional Status * Is person deaf or have serious hearing difficulty? Answer Date of Assessment Author No 09/07/2022 10:48 AM CDT Carmelo Perkins RN * Is person blind or have serious difficulty seeing? Answer Date of Assessment Author No 09/07/2022 10:48 AM CDT Carmelo Perkins RN * Does person have serious difficulty walking/climbing stairs? Answer Date of Assessment Author No 09/07/2022 10:48 AM CDT Carmelo Perkins RN * Does person have difficulty dressing/bathing? Answer Date of Assessment Author No 09/07/2022 10:48 AM CDT Carmelo Perkins RN * Does person have difficulty doing errands alone? Answer Date of Assessment Author No 09/07/2022 10:48 AM CDT Carmelo Perkins RN documented as of this encounter Mental Status * Does person have difficulty concentrating/remembering/making decisions? Answer Entry Date Author No 09/07/2022 10:48 AM Carmelo Funk RN documented in this encounter Miscellaneous Notes * Telephone Encounter - Rachel Trujillo LPN - 11/04/2022 2:00 PM CDT Sent scripts refills to PCP for approval. * Telephone Encounter - Brad Champion - 11/04/2022 12:08 PM CDT Pt called and is needing refills of her diazePAM (Valium) 5 MG tablet, metoclopramide (Reglan) 10 MG tablet, ondansetron, disintegrating, (Zofran ODT) 4 MG tablet, traZODone (Desyrel) 50 MG tablet, also asking for Hydroxyzine, MULTIVITAMIN TABLETS, MAG-OXIDE 400MG TABLETS, [facility] documented in this encounter Plan of Treatment Not on file documented as of this encounter Visit Diagnoses Not on filedocumented in this encounter Additional Health Concerns Infection Onset Date Last Indicated Resolved Time MRSA Comment:Arm lesion 12/10/23; 07/11/2023 12/10/2023 CDIFF Under Investigation 03/13/2024 03/17/2024 8:17 PM SOCIAL WORKER ASSISTANT COVID-19 Under Investigation 03/13/2024 03/13/2024 03/24/2024 4:33 AM SOCIAL WORKER ASSISTANT documented as of this encounter Care Teams Supervisory Geographer Relationship Specialty Start Date End Date Mikael Saxena MD PCP - General Internal Medicine 09/24/22 08/09/23 Pcp, [facility]ul Mendez PCP - General 09/06/23 09/11/23 Wali Shipman MSW Outpatient Chip Mixing Machine Operator Care Management 12/28/22 Ana Maria Wheeler RN Cutter Aluminum SheetPcb Designer 07/22/23 07/26/23 documented as of this encounter
--- OUTSIDE RECORDS SUMMARY | 2024-07-13 20:53 | XMS_ITS | Encounter Summary ---
Author Organization [facility] Address [address] [place] [address] Care Team Providers Care Well Head Pumper Name Role Phone Mikael Saxena MD Primary Care Provider [phone] Wali Shipman WEB PROGRAMMER Unavailable [phone] Delia Brito RN Unavailable Uri Moe MD Primary Care Provider [phone] Mikael Saxena MD Primary Care Provider [phone] Wali Shipman WEB PROGRAMMER Unavailable [phone] Ana Maria Wheeler RN Unavailable Pcp, [facility] Primary Care Provider Unavailable Encounter Details Date Type Department Care Team (Late st Contact Info) Description 09/24/2021 Telemedicine [facility] Medical [facility] - Family Medicine [address] [place] [phone] Mikael Saxena MD [address] [address] Social History Tobacco Use Types Packs/Day Years Used Date Smoking Tobacco: Never Smokeless Tobacco: Never Comments:nonsmoker Alcohol Use Standard Drinks/Week Comments Not Currently 0 (1 standard drink = 0.6 oz pur e alcohol) only occasional AUDIT-C Answer Date Recorded Q1: How often do you have a drink containing alcohol? Never 09/23/2021 Q2: How many drinks containi ng alcohol do you have on a typical day when you are drinking? Patient does not drink Q3: How often do you have si x or more drinks on one occasion? Never 09/23/2021 PHQ-2 Answer Date Recorded PHQ2 TOTAL SCORE 1 09/26/2021 Comments No Sex and Gender Information Value Date Recorded Sex Assigned at Not on file Legal Sex 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 EDUCATION AND DEVELOPMENT MANAGER Gender Identity Not on file Sexual Orientation Not on file Occupation Industry Job Start Date Job End Date [place] [employer] Not on file Not on file Not on file documented as of this encounter Functional Status * Is person deaf or have serious hearing difficulty? Answer Date of Assessment Author No 09/02/2021 12:23 PM CDT Ashlie Sanderson RN * Is person blind or have serious difficulty seeing? Answer Date of Assessment Author No 09/02/2021 12:23 PM CDT Ashlie Sanderson RN * Does person have serious difficulty walking/climbing stairs? Answer Date of Assessment Author No 09/02/2021 12:23 PM TOMMYT Ashlie Sanderson RN * Does person have difficulty dressing/bathing? Answer Date of Assessment Author No 09/02/2021 12:23 PM TOMMYT Ashlie Sanderson RN * Does person have difficulty doing errands alone? Answer Date of Assessment Author No 09/02/2021 12:23 PM TOMMYT Ashlie Sanderson RN documented as of this encounter Mental Status * Does person have difficulty concentrating/remembering/making decisions? Answer Entry Date Author No 09/02/2021 12:23 PM Ashlie Kelly RN documented in this encounter Plan of Treatment Not on file documented as of this encounter Visit Diagnoses Not on filedocumented in this encounter Additional Health Concerns Infection Onset Date Last Indicated Resolved Time COVID-19 Under Investigation 11/04/2021 11/04/2021 11/04/2021 12:20 PM CDT MRSA Comment:Arm lesion 12/10/23; 07/11/2023 12/10/2023 CDIFF Under Investigation 03/13/2024 03/17/2024 8:17 PM EDUCATION AND DEVELOPMENT MANAGER COVID-19 Under Investigation 03/13/2024 03/13/2024 03/24/2024 4:33 AM EDUCATION AND DEVELOPMENT MANAGER documented as of this encounter Care Teams Well Head Pumper Relationship Specialty Start Date End Date Mikael Saxena MD PCP - General Internal Medicine 09/23/21 09/10/22 Uri Moe MD [address] [address] PCP - General Gastroenterology 09/11/22 09/23/22 Mikael Saxena MD PCP - General Internal Medicine 09/24/22 08/09/23 Pcp, [facility] PCP - General 09/06/23 09/11/23 Wali Shipman MSW Outpatient Plating Tank Operator Apprentice Care Management 09/08/2208/16 Delia Brito RN Marine ArchitectComputer Teacher 09/08/22 09/15/22 Wali Shipman MSW Outpatient Plating Tank Operator Apprentice Care Management 12/28/22 Ana Maria Wheeler RN Marine ArchitectComputer Teacher 07/22/23 07/26/23 documented as of this encounter
--- OUTSIDE RECORDS SUMMARY | 2024-07-13 20:53 | XMS_ITS | Encounter Summary ---
Author Organization [facility] Address [address] [place] [address] Care Team Providers Care Prison Guard Supervisor Name Role Phone Mikael Saxena MD Primary Care Provider [phone] Wali Shipman EQUIPMENT CLEANER Unavailable [phone] Ana Maria Wheeler RN Unavailable [phone] PcpShabana [facility] Care-/-[facility] Primary Care Provider Unavailable Reason for Visit * Reason Onset Date Comments Medication Issue 12/07/2022 Encounter Details Date Type Department Care Team (Late st Contact Info) Description 12/07/[address] [facility] Medical [facility] - Family Medicine [address] [place] [phone] Mikael Saxena MD [address] [address] Medication Issue Social History Tobacco Use Types Packs/Day Years [...] Date Recorded PHQ2 TOTAL SCORE 6 09/11/2022 [facility] - Occupational [...] place to sleep or slept in a fdc (including now)? Patient refused 08/31/2022 Comments No Sex and Gender Information Value Date Recorded Sex Assigned at Not on file Legal Sex 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 TWITCHELL OPERATOR Gender Identity Not on file Sexual Orientation Not on file Occupation Industry Job Start Date Job End Date [place] [employer] Not on file Not on file [...] Entry Date Author No 09/07/2022 10:48 AM CDT Carmelo Perkins RN documented in this encounter Miscellaneous Notes * Telephone Encounter - Rachel Trujillo LPN - 12/09/2022 3:25 PM CDT PCP refused medication due to not his patient anymore. * Telephone Encounter - Ada Strickland - 12/07/2022 9:33 AM CDT Patient called saying that Emilie santos Keren sent over refill requests, back on the 12 of November, for Mag-oxide, a Multi-Vitamin, Folic Acid, Hydroxizine, and orriprizole, but I did not see any of those listed. She said that the will re-send the request shortly. documented in this encounter Plan of Treatment Not on file documented as of this encounter Visit Diagnoses Not on filedocumented in this encounter Additional Health Concerns Infection Onset Date Last Indicated Resolved Time MRSA Comment:Arm lesion 12/10/23; 07/11/2023 12/10/2023 CDIFF Under Investigation 03/13/2024 03/17/2024 8:17 PM TWITCHELL OPERATOR COVID-19 Under Investigation 03/13/2024 03/13/2024 03/24/2024 4:33 AM TWITCHELL OPERATOR documented as of this encounter Care Teams Prison Guard Supervisor Relationship Specialty Start Date End Date Mikael Saxena MD PCP - General Internal Medicine 09/24/22 08/09/23 Pcp, [facility]-Im/[facility]m-[place] Andrea PCP - General 09/06/23 09/11/23 Wali Shipman, JURGEN Outpatient Fire Alarm Dispatcher Care Management 12/28/22 Ana Maria Wheeler RN Halal Meat PackerPunching Machine Operator 07/22/23 07/26/23 documented as of this encounter
--- OUTSIDE RECORDS SUMMARY | 2024-07-13 20:53 | XMS_ITS ---
Author Organization [facility] Address [address] [place] [address] Care Team Providers Care Marine Driller Name Role Phone Sunil Matos Primary Care Provider [phone] Peggy Juares Medications Medication SIG (Take, Route, Fr equency, Duration) Notes Start Date End Date Status traZODone HCl 50 MG 1 tablet at bedtime as needed Orally NIGHTLY for 28 days Activ e Problems Problem Type SNOMED Code ICD Code Onset Dates Problem Status W/U Status Risk Notes Problem Insomnia (G47.00) Active confirmed Encounters Encounter Location Date Provider Diagnosis [facility] [address] [place] [address] 07/05/2024 Peggy Juares Insomnia G47.00 Assessments Encounter Date Diagnosis (ICD Code) Assessment Notes Treatment Notes Treatment Clinical Notes Section Notes 07/05/2024 Insomnia (ICD-10 - G47.00) Plan Of Treatment Medication Medication Name Sig Start Date Stop Date Notes traZODone HCl 50 MG 1 tablet at bedtime as needed Orally NIGHTLY for 28 days Next Appt Details Provider Name:Eriberto Ruiz , 07/17/2024 02:00:00 PM, [address], [place], [address], Provider Name:Brad sarkar, 07/18/2024 01:40:00 PM, [address], [place], [address], Progress Notes * Jennifer MATHIS RDOB: 6 (49 yo F)Acc No.[id number]:07/05/2024 UNLOCKED PROGRESS NOTE Patient: Jennifer JUNG :1975 A ge:49 Y S ex:Female Address:[address] [place] [address], [address] * Refills Refill traZODone HCl Tablet, 50 [...]
--- OUTSIDE RECORDS SUMMARY | 2024-07-13 20:53 | XMS_ITS | Encounter Summary ---
Author Organization [facility] Address [address] [place] [address] Phone Care Team Providers Care Electrician Elevator Maintenance Name Role Phone Identified, No Provider Primary Care Provider Un available Reason for Visit * Reason Onset Date Comments Appointment Request 10/04/2020 Encounter Details Date Type Department Care Team ([facility] Contact Info) Description 10/04/2020 Telephone Gen Surgery [facility] [address] [place] [address] Provider, Unknown Appointment Request Social [...] Information Order: GENERAL SURGERY FOLLOW UP [Custom: [id number]] Order #: [id number]: [id number] Priority: Routine Class: Normal(N) Full name [...] Time MRSA Comment:Added from external infection. Source: [facility]. 07/11/2023 documented as of this encounter Care Teams Electrician Elevator Maintenance Relationship Specialty Start Date End Date Identified, No Provider PCP - General 09/26/20 documented as of this encounter
--- OUTSIDE RECORDS SUMMARY | 2024-07-13 20:53 | XMS_ITS | Encounter Summary ---
Author Organization [facility] Address [address] [place] [address] Care Team Providers Care Tire Cord Weaver Name Role Phone Mikael Saxena MD Primary Care Provider [phone] Wali Shipman CRUST SORTER Unavailable [phone] Delia Brito RN Unavailable Uri Moe MD Primary Care Provider [phone] Mikael Saxena MD Primary Care Provider Wali Shipman CRUST SORTER Unavailable [phone] Ana Maria Wheeler RN Unavailable [phone] Pcp, Shabana Primary [facility]-Im[facility] Primary Care Provider Unavailable Reason for Visit * Reason Onset Date Comments General 10/13/2021 Encounter Details Date Type Department Care Team (Late st Contact Info) Description 10/13/2021 Telephone [facility] Medical [facility] - Family Medicine [address] [place] [address] Mikael Saxena MD [place] [address] [place] [address] General Social History Tobacco Use Types Packs/Day Years Used Date Smoking Tobacco: Never Smokeless Tobacco: Never Comments:nonsmoker Alcohol Use Standard Drinks/Week Comments Not Currently 0 (1 standard drink = 0.6 oz pur e alcohol) only occasional AUDIT-C Answer Date Recorded Q1: How often do you have a drink containing alcohol? Never 10/14/2021 Q2: How many drinks containi ng alcohol do you have on a typical day when you are drinking? Patient does not drink Q3: How often do you have si x or more drinks on one occasion? Never 10/14/2021 PHQ-2 Answer Date Recorded PHQ2 TOTAL SCORE 0 10/08/2021 Comments No Sex and Gender Information Value Date Recorded Sex Assigned at Not on file Legal Sex 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 SACK CLEANING HAND Gender Identity Not on file Sexual Orientation Not on file Occupation Industry Job Start Date Job End Date [place] Not on file Not on file Not on file documented as of this encounter Functional Status * Question Answer Date of Assessment Author Q1: How often do you have a drink containing alcohol? Never 10/14/2021 12:54 PM TOMMYT Perez Garibay RN * Is person deaf or have serious hearing difficulty? Answer Date of Assessment Author No 09/02/2021 12:23 PM TOMMYT Ashlie Sanderson RN * Is person blind or have serious difficulty seeing? Answer Date of Assessment Author No 09/02/2021 12:23 PM Ashlie Kelly RN * Does person have serious difficulty walking/climbing stairs? Answer Date of Assessment Author No 09/02/2021 12:23 PM Ashlie Kelly RN * Does person have difficulty dressing/bathing? Answer Date of Assessment Author No 09/02/2021 12:23 PM TOMMYT Ashlie Sanderson RN * Does person have difficulty doing errands alone? Answer Date of Assessment Author No 09/02/2021 12:23 PM Ashlie Kelly RN documented as of this encounter Mental Status * Does person have difficulty concentrating/remembering/making decisions? Answer Entry Date Author No 09/02/2021 12:23 PM Ashlie Kelly RN documented in this encounter Miscellaneous Notes * Telephone Encounter - America Lynn LPN - 10/16/2021 5:49 PM CDT She states that the carafate and protonix does not seem to be helping at all. She still suffers from stabbing pain and pressure. Would not be opposed to be ing placed in hospital somewhere. * Telephone Encounter - Mikael Saxena MD - 10/15/2021 1:25 PM CDT EGD showed gastritis and duodenitis. It appears dr Galarza prescribed protonix and carafate for you. Are these helpful? I suspect thje pain is from the gastritis you can try adding maalox but this isusually only temporary relief. Carafate is supposed to coat the lining of your stomach and protect inflamed stomach lining from acid in your stoach * Telephone Encounter - America Lynn LPN - 10/13/2021 10:52 AM CDT Had egd and biopsy done on 10/10/21. Would like to know the results. She still complains of a lot ofpain and her abdomen is still distended and would like to know what she can do. documented in this encounter Plan of Treatment Not on file documented as of this encounter Visit Diagnoses Not on filedocumented in this encounter Additional Health Concerns Infection Onset Date Last Indicated Resolved Time COVID-19 Under Investigation 11/04/2021 11/04/2021 11/04/2021 12:20 PM CDT MRSA Comment:Arm lesion 12/10/23; 07/11/2023 12/10/2023 CDIFF Under Investigation 03/13/2024 03/17/2024 8:17 PM SACK CLEANING HAND COVID-19 Under Investigation 03/13/2024 03/13/2024 03/24/2024 4:33 AM SACK CLEANING HAND documented as of this encounter Care Teams Tire Cord Weaver Relationship Specialty Start Date End Date Mikael Saxena MD PCP - General Internal Medicine 09/23/21 09/10/22 Uri Moe MD [facility] [address] [address] PCP - General Gastroenterology 09/11/22 09/23/22 Mikael Saxena MD PCP - General Internal Medicine 09/24/22 08/09/23 Pcp, [facility] PCP - General 09/06/23 09/11/23 Wali Shipman MSW Outpatient Account Processor Care Management 09/08/2208/16 Delia Brito RN Auditing Control ClerkMolecular Spectroscopist 09/08/22 09/15/22 Wali Shipman MSW Outpatient Account Processor Care Management 12/28/22 Ana Maria Wheeler RN Auditing Control ClerkMolecular Spectroscopist 07/22/23 07/26/23 documented as of this encounter
--- OUTSIDE RECORDS SUMMARY | 2024-07-13 20:53 | XMS_ITS | Patient Health Record ---
Author Organization [facility] Address [address] [place] [address] Care Team Providers Care Candy Puller Name Role Phone Sunil Matos Primary Care Provider Brad Aponte Unavailable [phone] Peggy Juares Unavailable Mar Valencia Unavailable Allergies Allergen (clinical drug ingredient) Drug/Non Drug Allergy documented on EMR Reaction Allergy Type Onset Date Status Vaccine product containing Influenza virus antigen (medicinal product) Flu vaccine (uncoded) Chest numbness Allergy Active gabapentin Gabapentin (uncoded) Seizures Allergy Active nortriptyline Nortriptoline (uncoded) Unknown Allergy Active estrogens, conjugated (SENIOR CARE) Premarin (uncoded) Unknown Allergy Activ e Septra (uncoded) Rash Allergy Act alecai ketorolac Toradol (uncoded) Hives Allergy Ac tive tramadol Tramadol (uncoded) Hives Allergy A ctive Results Component Value Reference Range Notes Breathalyzer Reviewed date:07/05/2024 03:16:37 PM Interpretation: Performing Lab: Notes/Report: ZAID 0.000 Test, Urine Reviewed date:07/11/2024 01:30:50 PM Interpretation: Performing Lab: Notes/Report: Test, Urine neg Negative - Negative 12 Panel Urine Drug Screen Reviewed date:07/11/2024 01:30:43 PM Interpretation: Performing Lab: Notes/Report: THC neg ANGELES neg MOP (OPI) neg AMP neg MET neg BAR neg BZO neg MDMA neg MTD neg OXY neg PCP neg BUP neg HIV Screen *HIV 1, 2 Ab, p24 Ag (591042) (Not yet reviewed by provider) Interpretation: Performing Lab:[place] [id number] [facility] Phone - [phone], Director - [facility] Notes/Report: HIV Ab/p24 Ag Screen Non Reactive Non Reactive HIV-1/HIV-2 antibodies and HIV-1 p24 antigen were NOT detected. There is no laboratory evidence of HIV infection. HIV Negative CMP 14 Comprehensive Metabol ic Panel* (Not yet reviewed by provider) Interpretation: Performing Lab:[facility], [address] [place] [address], Phone - [phone], Director - [facility] Notes/Report: Glucose 87 70-99 mg/dL BUN 27 [...] (Not yet reviewed by provider) Interpretation: Performing Lab:[facility], [address] [facility] Phone - [phone], Director - [facility] Notes/Report: WBC 4.8 3.4-10.8 x10E3/uL RBC 4.18 [...] % Immature Grans (Abs) 0.0 0.0-0.1 x10E3/uL QuantiFERON-TB Gold Plus (18 1307) (Not yet reviewed by provider) Interpretation: [facility]forming [facility] [address] [facility] Phone - [phone], Director - Ida Notes/Report: QuantiFERON Incubation Incubation [...] Nil Value 0.07 QuantiFERON Mitogen Value >10.00 Reason For Referral No Information Medications Medication SIG (Take, Route, Frequency, Duration) Notes Start Date End Date Status Doxepin HCl 25 MG 1 capsule at [...] at bedtime for 28 days 07/05/2024 Active Truvada 200-300 MG 1 tablet Orally Once a day Active Tivicay 50 MG 1 tablet Orally Once a day Active Abilify Unknown Nicotine Polacrilex 4 MG Chew 1 piece as needed for nicotine cravings Mouth/Throat up to every hour (max of 20 pieces per day) for 7 days 07/05/2024 Active Vraylar 1.5 MG 1 capsule at bedtime Orally Once a day for 7 days On CRU 07/11/2024 Active Multi Vitamin - 1 tablet Orally Once a day for 30 days 07/05/2024 Active Social History Tobacco Use: Social History Observation Description Date Details (start date - stop date) Never Smoker NA - NA PRAPARE Question Answer Notes In the past [...] 2 nights in a row in a care home, assisted, group home center, or juvenile correctional facility? 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) Active confirmed Problem Adult general medical exam (Z00.00) Active confirmed Vital Signs Heart Rate 78 /min 07/05/2024 Temperature 97.6 degrees Fahrenheit 07/05/2024 Respiratory Rate 20 /min 07/05/2024 Blood pressure diastolic 62 mm Hg 07/05/2024 Oximetry 100 % 07/05/2024 Height 63 in 07/05/2024 Blood pressure systolic 98 mm Hg 07/05/2024 Weight 111.4 lbs 07/05/2024 BMI 19.73 kg/m2 07/05/2024 Encounters Encounter Location Date Provider Diagnosis [address] [address] 07/05/2024 Mar Valencia [address] [place] [address] 07/11/2024 Brad Aponte PTSD (post-traumatic stress disorder) F43.10 and MDD (major depressive disorder), recurrent, severe, with psychosis F33.3 [facility] [place] [address] 07/05/2024 Peggy Juares Adult general medical exam Z00.00 [facility] [address] [place] [address] 07/05/2024 Peggy Juares Insomnia G47.00 Assessments Encounter [...] through bandages. 07/05/2024 Insomnia (ICD-10 - G47.00) 07/11/2024 PTSD (post-traumati c stress disorder) (ICD-10 - F43.10) 07/11/2024 MDD (major depressive disorder), recurrent, severe, with psychosis (ICD-10 - F33.3) 07/05/2024 Other Clinician met w ith client [...] Treatment Future Test Test Name Order Date HIV Screen *HIV 1, 2 Ab, p24 Ag ([id number]) 07/05/2024 CBC With Differential/Platelet* 07/06/19 25 CMP 14 Comprehensive Metabolic Panel* QuantiFERON-TB Gold Plus (664223) 2024 Next Appt Details Provider Name:Eriberto Ruiz , 07/17/2024 02:00:00 PM, [address], [place], [address], Provider Name:Brad sarkar, 07/18/2024 01:40:00 PM, [address], [place], [address], Insurance Providers Payer Name Payer Address Payer Phone Subscriber Number Group Number Insured Name Patient Relationship to Insured Coverage Start Date Coverage End Date [facility] Attn Claims Department [address] [place] [id number] Jennifer Mathis Self - patient is the insured 5 [facility] Attn Claims Department [address] [place] [address] [id number] Jennifer Mathis Self - patient is the insured 5 Medical (General) History Medical History History ICD Code SMA syndrome herniated disk neck torn rotator cuffs and tendon in right s houlder budging disks in lower back mental health history Surgical History Surgery Date(Month/Year) Hospitalization History Reason Date(Month/Year) [facility] 06/2024
--- OUTSIDE RECORDS SUMMARY | 2024-07-13 20:53 | XMS_ITS | Encounter Summary ---
Author Organization [facility] Address [address] [place] [address] Care Team Providers Care Ledger Poster Name Role Phone Mikael Saxena MD Primary Care Provider [phone] Wali Shipman OUTSIDE DELIVERER Unavailable Ana Maria Wheeler RN Unavailable [phone] PcpShabana Primary Care-/-[facility] Primary Care Provider Unavailable Reason for Visit * Reason Onset Date Comments MEDICATION REFILL 11/16/2022 Encounter Details Date Type Department Care Team (Late st Contact Info) Description 11/16/2022 Refill [facility] Medical [facility] - Family Medicine [address] [place] [phone] Mikael Saxena MD [address] [address] MEDICATION REFILL Social History Tobacco Use Types Packs/Day Years [...] Date Recorded PHQ2 TOTAL SCORE 6 09/11/2022 [facility] - Occupational [...] place to sleep or slept in a senior care (including now)? Patient refused 08/31/2022 Comments No Sex and Gender Information Value Date Recorded Sex Assigned at Not on file Legal Sex 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 ORDNANCE ARTIFICER HELPER Gender Identity Not on file Sexual Orientation Not on file Occupation Industry Job Start Date Job End Date [employer] Not on file Not on file Not on file documented as of this encounter Functional Status * Is person deaf or have serious hearing difficulty? Answer Date of Assessment Author No 09/07/2022 10:48 AM Carmelo Funk RN * Is person blind or have serious difficulty seeing? Answer Date of Assessment Author No 09/07/2022 10:48 AM Carmelo Funk RN * Does person have serious difficulty walking/climbing stairs? Answer Date of Assessment Author No 09/07/2022 10:48 AM Carmelo Funk RN * Does person have difficulty dressing/bathing? Answer Date of Assessment Author No 09/07/2022 10:48 AM Carmelo Funk RN * Does person have difficulty doing errands alone? Answer Date of Assessment Author No 09/07/2022 10:48 AM Carmelo Funk RN documented as of this encounter Mental Status * Does person have difficulty concentrating/remembering/making decisions? Answer Entry Date Author No 09/07/2022 10:48 AM Carmelo Funk RN documented in this encounter Plan of Treatment Not on file documented as of this encounter Visit Diagnoses Not on filedocumented in this encounter Additional Health Concerns Infection Onset Date Last Indicated Resolved Time MRSA Comment:Arm lesion 12/10/23; 07/11/2023 12/10/2023 CDIFF Under Investigation 03/13/2024 03/17/2024 8:17 PM ORDNANCE ARTIFICER HELPER COVID-19 Under Investigation 03/13/2024 03/13/2024 03/24/2024 4:33 AM ORDNANCE ARTIFICER HELPER documented as of this encounter Care Teams Ledger Poster Relationship Specialty Start Date End Date Mikael Saxena MD PCP - General Internal Medicine 09/24/22 08/09/23 Pcp, Shabana Luis Primary Care-Im/[facility] PCP - General 09/06/23 09/11/23 Wali Shipman MSW Outpatient Dust Collector [place] Care Management 12/28/22 Ana Maria Wheeler RN Engagement ExecutiveClient Technical Specialist 07/22/23 07/26/23 documented as of this encounter
--- OUTSIDE RECORDS SUMMARY | 2024-07-13 20:53 | XMS_ITS | Clinical Summary ---
Author Organization [facility] Address [address] [place] [address] Phone Care Team Providers Care Typewriter Repairer Name Role Phone Identified, No Provider Primary [...] 05/27/2024 10:22 PM CDT Emergency Emergency Room [address] [place] [id number] Gt Sutherland MD Constipation, unspecified constipation type (Primary Dx) Discharge Disposition: Discharged to Home or Self Care 05/25/2024 10:06 AM CDT - 05/25/2024 3:04 PM CDT Emergency Emergency Room [address] [place] [id number] Tahir Young MD Recurrent abdominal pain (Primary [...] A M CDT Height 162.6 cm (5' 4) 09/27/2020 5:00 PM CDT Body Mass Index [...] 6:31 PM CDT Accession Exam Completed Date/Time [id number] XR KUB UPRIGHT ONLY (INCLUDE DIAPHRAGM) 05/27/2024 [...] Santos MD - 05/27/2024 Accession Exam CompletedDate/Time [id number] XR KUB UPRIGHT ONLY (INCLUDE DIAPHRAGM) 518:05 [...] URINE , POCT (05/27/2024 4:46 PM CDT) [facility] , Qual-Urine (POCT) Negative INTERNAL CONTROL OK Yes Kit Expiration Date 2025-05-11 Kit Lot # [id number] Gt Blackwell APRN INPATIENT POINT OF C ARE Final Result * TROPONIN, HIGH SENSITIVITY (05/27/2024 4:45 PM CDT) [facility] TROPONIN, HIGH SENSITIVITY <3 0 - 4 ng/L [facility] Comment: Refer to the High Sensitivity Troponin Algorithm for interpretation and risk stratification guidelines. [facility], [address] [place] [phone] 05/27/2024 4:45 PM CDT 05/27/2024 5:09 PM CDT Gt Blackwell APRN HEM/CHEM/IMMUN-BLOOD Final Result [facility] [address] [place] [id number], [place] * (ABNORMAL) UA WITH REFLEX CULTURE IF INDICATED (05/27/2024 4:45 PM CDT) COLOR Yellow COLORLESS:CLIFF L [facility] APPEARANCE Cloudy(A) CLEAR [facility] SP. GRAVITY 1.021 1.003 - 1.035 arbitrary unit [facility] PH 6.0 4.5 - 8.0 pH [facility] PROTEIN Negative NEGATIVE mg/dL [facility] GLUCOSE Negative NEGATIVE mg/dL [facility] KETONE Negative NEGATIVE mg/dL [facility] BILIRUBIN Negative NEGATIVE [facility] BLOOD Negative NEGATIVE [facility] NITRITE Negative NEGATIVE [facility] UROBILINOGEN 0.2 <1.0 mg/dL [facility] LEUKOCYTE ESTERASE Negative NEGATIVE [facility] RBC 3 0 - 20 /uL [facility] WBC 24 0 - 25 /uL [facility] CASTS, URINE <1 0 - 2 /uL [facility] SQUAMOUS EPI 174(H) 0 - 30 /uL [facility] Comment:[facility], [address] [place] [phone] VOIDED URINE SPECIMEN / Unknown 05/27/2024 4:45 PM CDT 05/27/2024 5:03 PM CDT us Gt Blackwell DEVELOPMENT TEAM LEAD HEM/CHEM/IMMUN-NON-B LOOD Final Result [facility] [address] [place] [phone], [place] * CBC W/DIFF (05/27/2024 4:45 PM CDT) Only the most recent of2 resultswithin the time period is included. WBC 7.38 4.00 - 11.00 10*3/uL [facility] RBC 4.05 3.50 - 5.20 10*6/uL [facility] HGB 12.3 11.0 - 16.0 g/dL [facility] HCT 37.8 34.0 - 47.0 % [facility] MCV 93.3 80.0 - 100.0 fL [facility] MCH 30.4 26.0 - 33.0 pg [facility] MCHC 32.5 31.0 - 35.0 g/dL [facility] RDW 12.8 12.0 - 15.0 % [facility] RDW-SD 43.7 38.0 - 52.0 fL [facility] PLATELET 279 140 - 400 10*3/uL [facility] MPV 9.5 9.0 - 12.0 fL [facility] SEG 70.7 % [facility] LYMPHOCYTE 23.4 % [facility] MONOCYTE 4.7 % [facility] EOSINOPHIL 0.8 % [facility] BASOPHIL 0.1 % [facility] IMMATURE GRANULOCYTE 0.3 % [facility] ABSOLUTE NEUTR 5.21 1.60 - 7.70 10*3/uL [facility] ABSOLUTE LYMPH 1.73 1.00 - 4.90 10*3/uL [facility] ABSOLUTE MONO 0.35 0.00 - 1.10 10*3/uL [facility] ABSOLUTE EOS 0.06 0.00 - 0.50 10*3/uL [facility] ABSOLUTE BASO 0.01 0.01 - 0.20 10*3/uL [facility] ABSOLUTE IMMATURE GRANULOCYTE 0.02 0.00 - 0.09 10*3/uL [facility] Comment:[facility], [address] [place] [phone] 05/27/2024 4:45 PM CDT 05/27/2024 5:09 PM CDT us Gt Blackwell DEVELOPMENT TEAM LEAD HEM/CHEM/IMMUN-BLOOD Final Result [facility] [address] [place] [phone], * (ABNORMAL) COMPREHENSIVE METABOLIC PANEL (05/27/2024 4:45 PM CDT) Only the most recent of2 resultswithin the time period is included. CALCIUM 8.6(L) 8.9 - 10.6 mg/dL [facility] GLUCOSE 83 74 - 100 mg/dL [facility] BUN 21(H) 7 - 19 mg/dL [facility] CREATININE 0.80 0.55 - 1.02 mg/dL [facility] TOTAL PROTEIN 6.3 6.0 - 8.0 g/dL [facility] ALBUMIN 3.4(L) 3.5 - 5.0 g/dL [facility] BILIRUBIN, TOTAL 0.1(L) 0.2 - 1.2 mg/dL [facility] AST 16 9 - 43 U/L [facility] ALT 8 0 - 34 U/L [facility] ALKALINE PHOSPHATASE 77 40 - 150 U/L [facility] SODIUM 140 136 - 145 mmol/L [facility] POTASSIUM 4.3 3.5 - 5.1 mmol/L [facility] CHLORIDE 107 98 - 107 mmol/L [facility] CO2 23.0 22.0 - 29.0 mmol/L [facility] GFR: CKD-EPI 2020 CREAT 91 arbitrary unit [facility] Comment: eGFR of 90 [...] for the assessment of chronic kidney disease. [facility], [address] [place] [phone] 05/27/2024 4:45 PM CDT 05/27/2024 5:09 PM CDT us Gt Blackwell DEVELOPMENT TEAM LEAD HEM/CHEM/IMMUN-BLOOD Final Result [facility] [address] [place] [phone], [place] * LIPASE (05/27/2024 4:45 PM CDT) Only the most recent of2 resultswithin the time period is included. LIPASE 29 8 - 78 U/L [facility] Comment:[facility], [address] [place] [phone] 05/27/2024 4:45 PM CDT 05/27/2024 5:09 PM CDT us Gt Blackwell DEVELOPMENT TEAM LEAD HEM/CHEM/IMMUN-BLOOD Final Result Performing Organization Address [facility]/ZIP Co de Phone Number [facility] [address] [place] [phone], [place] * LACTIC ACID, ISTAT (POC) (05/27/2024 4:43 PM CDT) LACTIC ACID, ISTAT (POC) 1.4 0.5 - 2.0 mmol/L [facility] Comment:[facility], [address] [place] [phone] 05/27/2024 4:43 PM CDT 05/27/2024 4:45 PM CDT us Gt Sutherland MD HEM/CHEM/IMMUN-BLOOD F inal Result Performing Organization Address [facility] Co de Phone Number [facility] [address] [place] [phone], [place] * ECG 12 LEAD (05/27/2024 4:25 [...] GT BLACKWELL Confirmed By: GOLDEN GALEANO MD [facility] 05/27/2024 4:25 PM CDT us Gt Blackwell DEVELOPMENT TEAM LEAD [facility] Final Result Performing Organization Address [facility] Co de Phone Number [address] [id number], [place] * CT ABDOMEN/PELVIS WITH CONTRAST (05/25/2024 12:52 PM CDT) Anatomical Region Laterality Modality Abdomen, Pelvis N/A Computed Tomogra phy 05/25/2024 12:4 8 PM CDT Narrative 05/25/2024 1:05 PM CDT Accession Exam Completed Date/Time [id number] CT ABDOMEN/PELVIS WITH CONTRAST 05/25/2024 12:52 Requesting: [...] [place] MD - 05/25/2024 Accession Exam CompletedDate/Time [id number] CT ABDOMEN/PELVIS WITH CONTRAST 2:52 Requesting: TAHIR [...] external infection. Source: [facility], [facility] [employer]. 07/11/2023 Insurance [facility] [employer] Advance Directives For more information, please contact: [phone] * Full Code (Latest Code Status on File) Date Activated Date Inactivated Comments 09/27/2020 8:24 AM 10/04/2020 10:27 PM Care Teams Typewriter Repairer Relationship Specialty Start Date End Date Identified, No Provider PCP - General 09/26/20
[2024-07-13 20:54] VITALS: BP 92/56; PULSE 82; RESP 20; TEMP 36.7; O2SAT 98
--- OUTSIDE RECORDS SUMMARY | 2024-07-13 23:09 | XMS_ITS | Clinical Summary ---
Author Organization [facility] Address [address] [place] [address] Care Team Providers Care Block Paver Name Role Phone Provider, Not On File [...] Department Care Team Description 05/22/2024 Results Follow-Up [facility] Emergency Dept. Services [address] [place] [address] Herlinda Sanchez LPN Culture, Urine 05/19/2024 11:16 PM CDT - 05/20/2024 10:22 AM CDT Emergency [facility] Emergency Dept. [place] [address] [place] [address] Makayla Carlisle MD Methamphetamine abuse Discharge Disposition: Dis/Trans to Psych Hosp/Psych Unit 05/19/2024 Travel 05/10/2024 3:38 PM CDT - 05/10/2024 6:00 PM CDT Emergency [facility] Emergency Dept. Services [address] [place] [address] Makayla Carlisle MD Chronic right shoulder pain Discharge Disposition: Discharged to home or Selfcare 05/10/2024 Travel 05/09/2024 7:10 PM CDT - 05/09/2024 8:31 PM CDT Emergency [facility] Emergency Dept. Services [address] [place] [address] Discharge Disposition: Left Against Medical Advice 05/09/2024 [...] AM CDT ID NOW COVID 19 ELDA ([facility] STAT 05/20/2024 12:13 AM CDT URINALYSIS (UA) [...] EXTERNAL EKG - 05/21/2024 2:16 [place] [address] Test Date: 2024-05-20 Pat Name: JENNIFER MOCTEZUMA Department: Room: [facility] Gender: F Rod Pointer: MIS : 1975 Requested By: MAKAYLA CARLISLE Order Number: [id number] Reading MD: Cruz Steven MD Measurements Intervals Dryden Rate: 60 P: 84 OK: 141 QRS: 74 QRSD: 94 T: 63 QT: 441 QTc: 441 Interpretive Statements Sinus rhythm Consider left ventricular hypertrophy Electronically Signed On 05-21-2024 14:12:43 CDT by Cruz Steven MD Narrative Procedure Note Cruz Steven MD - 05/21/2024 IMPRESSION: [facility] [address] [address] Test Date: 2024-05-20 Pat Name: JENNIFER MOCTEZUMA Department: Room: [facility] Gender: F Rod Pointer: TB : 1975 Requested By: MAKAYLA CARLISLE Order Number: [id number] Reading MD: Cruz Steven MD Measurements Intervals [place]den Rate: 60 P: 84 OK: 141 QRS: 74 QRSD: 94 T: 63 QT: 441 QTc: 441 Interpretive Statements Sinus rhythm Consider left ventricular hypertrophy Electronically Signed On 05-21-2024 14:12:43 CDT by Cruz Steven MD us Makayla Carlisle MD IMG ECG ORDERABLES Final Resul t Performing Organization Address [facility] de Phone Number EXTERNAL EKG * Quinn Top Tube (05/20/2024 12:19 AM CDT) Blood No Phlebotomy Charged / Unknown 05/20/2024 12:19 AM CDT 05/20/2024 12:22 AM CDT us Makayla Carlisle MD CHEMISTRY ORDERABLES Final Res ult Performing Organization Address [facility] Co de Phone Number [facility] [address] [address], * Blue Top Tube (05/20/2024 12:19 AM CDT) Blood No Phlebotomy Charged / Unknown 05/20/2024 12:19 AM CDT 05/20/2024 12:22 AM CDT us Makayla Carlisle MD HEMATOLOGY ORDERABLES Final Re sult Performing Organization Address [facility] de Phone Number [facility] [address] [place] [address], [place] [phone] * (ABNORMAL) CBC with Auto Differential (05/20/2024 12:19 AM [facility]) [facility] Signature WBC 6.85 3.88 - 10.35 10(3)/mcL 05/20/2024 12:29 AM [facility] RBC 3.72(L) 3.78 - 5.29 10(6)/mcL 05/20/2024 12:29 AM [facility] HEMOGLOBIN (HGB) 11.2(L) 12.0 - 16.0 g/dL 05/20/2024 12:29 AM [facility] HEMATOCRIT (HCT) 34.7(L) 37.0 - 47.0 % 05/20/2024 12:29 AM [facility] MCV 93.3 82.0 - 100.0 fL 05/20/2024 12:29 AM [facility] MCH 30.1 25.9 - 32.7 pg 05/20/2024 12:29 AM [facility] MCHC 32.3 31.0 - 34.1 g/dL 05/20/2024 12:29 AM [facility] RDW 12.9 11.8 - 15.7 % 05/20/2024 12:29 AM [facility] PLATELET COUNT 192 150 - 450 10(3)/mcL 05/20/2024 12:29 AM [facility] MPV 10.5 8.7 - 12.2 fL 05/20/2024 12:29 AM [facility] NEUTROPHILS 59.7 40.0 - 75.0 % 05/20/2024 12:29 AM [facility] IMMATURE GRANULOCYTE % 0.3 0.0 - 2.0 % 05/20/2024 12:29 AM [facility] LYMPHOCYTES 30.5 20.0 - 40.0 % 05/20/2024 12:29 AM [facility] MONOCYTES 7.2 0.0 - 10.0 % 05/20/2024 12:29 AM [facility] EOSINOPHILS 1.9 0.0 - 4.0 % 05/20/2024 12:29 AM CDT [facility] BASOPHILS 0.4 0.0 - 1.0 % 05/20/2024 12:29 AM CDT [facility] ABSOLUTE NEUTROPHILS 4.09 1.50 - 8.00 10(3)/mcL 05/20/2024 12:29 AM CDT [facility] Blood Venipuncture / Unknown 05/20/2024 12:19 AM CDT 05/20/2024 12:22 AM CDT us Makayla Carlisle MD HEMATOLOGY ORDERABLES Final Re sult Performing Organization Address [facility]/ZIP Co de Phone Number [facility] [address] [place] [address], [place] [phone] * (ABNORMAL) Acetaminophen Level (05/20/2024 12:19 AM CDT) ACETAMINOPHEN <10.0(L) 10.0 - 30.0 mcg/mL 05/20/2024 12:39 AM CDT [facility] Blood Venipuncture / Unknown 05/20/2024 12:19 AM CDT 05/20/2024 12:22 AM CDT us Makayla Carlisle MD CHEMISTRY ORDERABLES Final Res ult Performing Organization Address [facility]/ZIP Co de Phone Number [facility] [address] [place] [address], [place] [phone] * Thyroid Stimulating Hormone (TSH) (05/20/2024 12:19 AM CDT) TSH 0.837 0.465 - 4.680 mIU/L 05/20/2024 1:08 AM CDT [facility] Blood Venipuncture / Unknown 05/20/2024 12:19 AM CDT 05/20/2024 12:22 AM CDT us Makayla Carlisle MD CHEMISTRY ORDERABLES Final Res ult Performing Organization Address City/[facility] Co de Phone Number [facility] [address] [address], [place] [phone] * (ABNORMAL) Salicylate Level (05/20/2024 12:19 AM CDT) SALICYLATE 2.8(L) 10.0 - 20.0 mg/dL 05/20/2024 12:42 AM CDT [facility] Blood Venipuncture / Unknown 05/20/2024 12:19 AM CDT 05/20/2024 12:22 AM CDT Makayla Carlisle MD CHEMISTRY ORDERABLES Final Res ult Performing Organization Address [facility] de Phone Number [facility] [address] [place] [address], [place] [phone] * Magnesium (MG) (05/20/2024 12:19 AM CDT) MAGNESIUM 2.2 1.6 - 2.3 mg/dL 05/20/2024 12:39 AM CDT [facility] Blood Venipuncture / Unknown 05/20/2024 12:19 AM CDT 05/20/2024 12:22 AM CDT Makayla Carlisle MD CHEMISTRY ORDERABLES Final Res ult Performing Organization Address [facility] Co de Phone Number [facility] [address] [address], [place] [phone] * ETOH Level (05/20/2024 12:19 AM CDT) ETHANOL <10 0 - 79 mg/dL 05/20/2024 12:42 AM CDT [facility] ETHANOL <0.010 0.000 - 0.079 G/dL 05/20/2024 12:42 AM CDT [facility] Blood Venipuncture / Unknown 05/20/2024 12:19 AM CDT 05/20/2024 12:22 AM CDT us Makayla Carlisle MD CHEMISTRY ORDERABLES Final Res ult [facility] [address] [place] [address], [place] [phone] * (ABNORMAL) CMP (05/20/2024 12:19 AM CDT) SODIUM 139 137 - 145 mmol/L 05/20/2024 12:39 AM [facility] POTASSIUM 3.6 3.5 - 5.1 mmol/L 05/20/2024 12:39 AM [facility] CHLORIDE 108(H) 98 - 107 mmol/L 05/20/2024 12:39 AM [facility] CO2, VENOUS 22 22 - 30 mmol/L 05/20/2024 12:39 AM [facility] GLUCOSE 83 70 - 106 mg/dL 05/20/2024 12:39 AM [facility] BUN 14 7 - 17 mg/dL 05/20/2024 12:39 AM [facility] CREATININE, BLOOD 0.60 0.52 - 1.04 mg/dL 05/20/2024 12:39 AM [facility] ALKALINE PHOSPHATASE 102 38 - 126 U/L 05/20/2024 12:39 AM [facility] SGPT (ALT) 21 1 - 34 U/L 05/20/2024 12:39 AM [facility] SGOT (AST) 26 14 - 36 U/L 05/20/2024 12:39 AM [facility] ALBUMIN 3.9 3.5 - 5.0 g/dL 05/20/2024 12:39 AM [facility] T BILI 0.5 0.2 - 1.3 mg/dL 05/20/2024 12:39 AM [facility] TOTAL PROTEIN 6.6 6.3 - 8.2 g/dL 05/20/2024 12:39 AM [facility] CALCIUM 8.6 8.4 - 10.2 mg/dL 05/20/2024 12:39 AM [facility] ANION GAP 9.0 6.0 - 16.0 mmol/L 05/20/2024 12:39 AM [facility] BUN/CREATININE RATIO 23 7 - 30 ratio 05/20/2024 12:39 AM [facility] A/G RATIO 1.4 0.9 - 2.3 05/20/2024 12:39 AM [facility] GLOBULIN 2.7 2.2 - 3.9 g/dL 05/20/2024 12:39 AM [facility] GFR, ESTIMATED >60 >60 05/20/2024 12:39 AM [facility] OSMOLALITY 277 273 - 304 mOsm/kg 05/20/2024 12:39 AM [facility] Blood Venipuncture / Unknown 05/20/2024 12:19 AM CDT 05/20/2024 12:22 AM CDT Makayla Carlisle MD CHEMISTRY ORDERABLES Final Res ult [facility] [address] [place] [address], [place] [phone] * COVID-19 ID Now ELDA (05/20/2024 12:13 AM CDT) COVID 19 ELDA NOT DETECTED Negative 05/20/2024 12:44 AM T [facility] Nasopharyngeal Non-Phlebotomy Collection / Unknown 05/20/2024 12:13 AM CDT 05/20/2024 12:30 AM CDT Makayla Carlisle MD IMMUNOLOGY ORDERABLES Final Re sult [facility] [address] [address], [place] [phone] * (ABNORMAL) Urinalysis w/ Reflex (05/20/2024 12:05 AM CDT) Only the most recent of2 resultswithin the time period is included. URINALYSIS COLOR Yellow Yellow, Light Yellow 05/20/2024 12:39 AM [facility] URINALYSIS CLARITY Clear Clear 05/20/2024 12:39 AM [facility] URINE PH 5.5 5.0 - 8.0 05/20/2024 12:39 AM [facility] SPECIFIC GRAVITY >=1.030(H) 1.005 - 1.020 05/20/2024 12:39 AM [facility] PROTEIN, RANDOM URINE 1+(A) Negative 05/20/2024 12:39 AM [facility] URINE GLUCOSE, QUAL Negative Negative 05/20/2024 12:39 AM [facility] URINE KETONES 2+(A) Negative 05/20/2024 12:39 AM [facility] URINE BLOOD Trace-Intact (A) Negative anish/ul 05/20/2024 12:39 AM [facility] NITRITE Negative Negative 05/20/2024 12:39 AM [facility] URINE BILIRUBIN Negative Negative 12:39 AM [facility] UROBILINOGEN 0.2 0.2 , 1.0 , Normal mg/dL 05/20/2024 12:39 AM [facility] WBC ESTERASE 2+(A) Negative 05/20/2024 12:39 AM [facility] Urine URINE SPECIMEN OBTAINED BY CLEAN CATCH PROCEDURE / Unknown Non-Phlebotomy Collection / Unknown 05/20/2024 12:05 AM T 05/20/2024 12:30 AM CDT us Makayla Carlisle MD URINE ORDERABLES Final Result [facility] [address] [address], [place] [phone] * (ABNORMAL) Urinalysis (UA) Microscopic Only (05/20/2024 12:05 AM CDT) Only the most recent of2 resultswithin the time period is included. URINE RBC'S 0-2(A) None /hpf 05/20/2024 12:46 AM CDT [facility] WBC (Urine) 11-25(A) None /hpf 05/20/2024 12:46 AM CDT [facility] BACTERIA, URINE 2+(A) None Seen /hpf 05/20/2024 12:46 AM CDT [facility] SQUAMOUS EPITHELELIAL CELLS 6-10(A) None /hpf 05/20/2024 12:46 AM CDT [facility] Urine URINE SPECIMEN OBTAINED BY CLEAN CATCH PROCEDURE / Unknown Non-Phlebotomy Collection / Unknown 05/20/2024 12:05 AM CDT 05/20/2024 12:30 AM CDT us Makayla Carlisle MD URINE ORDERABLES Final Result Performing Organization Address City/State/[facility] Co de Phone Number [facility] [address] [place] [address], * Culture, Urine (05/20/2024 12:05 AM CDT) CULTURE RESULTS METHICILLIN RESISTANT STAPHYLOCOCCUS AUREUS STH [place] [address]40 05/22/2024 11:20 AM CDT [facility] Urine URINE SPECIMEN OBTAINED BY CLEAN CATCH [...] ORDERAB LES Final Result Performing Organization Address [facility]/State/ZIP Co de Phone Number [facility] [address] [place] [address], * (ABNORMAL) Urine Drug Screen (05/20/2024 12:05 AM CDT) Only the most recent of2 resultswithin the time period is included. [facility] UR PHENCYCLIDINE NEGATIVE NEGATIVE 05/21/19 12:39 AM CDT [facility] UR BENZODIAZEPINES NEGATIVE NEGATIVE 2024 12:39 AM CDT [facility] UR COCAINE METABOLITE NEGATIVE NEGATIVE 05/20/2024 12:39 AM CDT [facility] UR AMPHETAMINE POSITIVE(A) NEGATIVE 12:39 AM CDT [facility] UR CANNABINOID NEGATIVE NEGATIVE 05/20/2024 12:39 AM CDT [facility] UR OPIATES NEGATIVE NEGATIVE 05/20/2024 12:39 AM CDT [facility] UR BARBITURATE NEGATIVE NEGATIVE 05/20/2024 12:39 AM CDT [facility] UR TRICYCLIC ANTIDEPRESS SCREEN NEGATIVE NEGATIVE 05/20/2024 12:39 AM CDT [facility] UR ECSTASY POSITIVE(A) NEGATIVE 05/20/2024 12:39 AM CDT [facility] UR OXYCODONE NEGATIVE NEGATIVE 05/20/2024 12:39 AM CDT [facility] UR PROPOXYPHENE NEGATIVE NEGATIVE 12:39 AM CDT [facility] Urine Non-Phlebotomy Collection / Unknown 05/20/2024 12:05 AM CDT 05/20/2024 12:30 AM CDT us Makayla Carlisle MD URINE ORDERABLES Final Result [facility] [address] [place] [address], * XR LUMBAR SPINE 2 OR 3 [...] No pneumothorax. Lumbar spine: There are 5 npk-ikz-jcwryjq lumbar vertebral bodies. There is moderate multilevel [...] Conner Dalton M.D. MJ: DOMINICK Report ID: [id number] Reading Location: [id number] Procedure Note Conner Datlon MD - 05/10/2024 EXAM DESCRIPTION: XR SHOULDER [...] No pneumothorax. Lumbar spine: There are 5 bxl-pxr-ectmkkg lumbar vertebral bodies. There is moderate multilevel [...] Conner Dalton M.D. MJ: DOMINICK Report ID: [id number] Reading Location: [id number] us Makayla Carlisle MD IMG DIAGNOSTIC ORDERABLES [...] No pneumothorax. Lumbar spine: There are 5 eff-rdz-eucqjaf lumbar vertebral bodies. There is moderate multilevel [...] Conner Dalton M.D. MJ: DOMINICK Report ID: [id number] Reading Location: [id number] Procedure Note Conner aDlton MD - 05/10/2024 EXAM DESCRIPTION: XR SHOULDER [...] No pneumothorax. Lumbar spine: There are 5 yyi-ljh-pxwxepb lumbar vertebral bodies. There is moderate multilevel [...] Conner Dalton M.D. MJ: DOMINICK Report ID: [id number] Reading Location: [place] [address] Makayla Carlisle MD IMG DIAGNOSTIC ORDERABLES Jinny l Result from Last 3 Months Additional Health Concerns Infection Onset Date Last Indicated MRSA 05/20/2024 05/20/2024 Insurance MEDICA[employer] Member Subscriber Plan / Payer (Ef fective for All Dates) Name:Jennifer Moctezuma Member ID:[id number] Relation to Subscriber:Self Name:Jennifer Moctezuma Subscriber ID:[id number] Payer ID:[id number] Group ID:[id number] Type:Not on file Address: [address] [place] [id number] Care Teams Block Paver Relationship Specialty Start Date End Date Provider, Not On File [place] PCP - General 10/13/13
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
--- OUTSIDE RECORDS SUMMARY | 2024-07-13 23:09 | XMS_ITS | Clinical Summary ---
Author Organization [facility] [employer] Address [address] [place] [address] Care Team Providers Care Curling Machine Operator Name Role Phone Unavailable Primary Care Provider Unavailabl e Source Comments [facility] [employer],non-owned Affiliates and Associated Physician Practices is amultiple site organization consisting of ambulatory clinics and hospital sitesin [place], [place], [place] and [place]. This disclosure is being madepursuant to the Care Everywhere program and may not contain all information available regarding this patient. Last updated 17.[facility] [employer] Allergies Active Allergy Reactions Criticality Noted Date [...] (07/16/2022): Added automatically from request for surgery [id number] Dysphagia 11/30/2019 07/16/2022 Overview (07/16/2022): Added automatically from request for surgery [id number] Cannabis use disorder, severe, dependence 201907/16/2022 Overview (07/16/2022): Added automatically from request for surgery [id number] Unspecified mood (affective) disorder 11/07/2019 Gastroparesis 04/09/2013 [...] (07/16/2022): Added automatically from request for surgery [id number] Family history of colon cancer 11/30/2019 07/16/2022 07/11/2023 Overview (07/16/2022): Added automatically from request for surgery [id number] Abdominal cramping 11/30/2019 07/16/2022 4 Overview (07/16/2022): Added automatically from request for surgery [id number] Alternating constipation and diarrhea 11/30/201902/202207/11/2023 Overview (07/16/2022): Added automatically from request for surgery [id number] Suicidal ideation 11/07/2019 08/25/2021 Anxiety states 11/07/2019 [...] (07/16/2022): Added automatically from request for surgery [id number] Abdominal bloating 11/16/2014 07/16/2022 Overview (07/16/2022): Added automatically from request for surgery [id number] Rash 05/31/2013 07/16/2022 08/13/2022 Diarrhea 12/02/2012 07/16/2022 [...] diet Added automatically from request for surgery [id number] Added automatically from request for surgery [id number] Epigastric pain 09/10/2010 07/11/2023 Constipation 09/10/2010 07/16/2022 08/13/2022 Encounters * This document contains information received from the source organization and may not represent a complete record from that organization. Date Type Department Care Team Description 06/27/2024 Travel 05/24/2024 Telephone [facility] - GI 2 [place] [facility], [facility] [address] [place] [phone] Manda Brooks APRN-CNP General (No shows) 04/25/2024 Telephone [facility] - GI 2 [place] [facility], [facility] [address] [place] [phone] Manda Brooks APRN-CHIDI Scheduling 04/25/2024 Telephone [facility] - GI 2 [place] [facility], [facility] [address] [place] [phone] Manda Brooks APRN-CHIDI Scheduling from Last 3 [...] Recorded Patient Health Questionnaire-2 Score 6 06/27/2024 [facility] - Occupational [...] place to sleep or slept in a care home (including now)? Yes 07/11/2023 Housing Stability Vital Sign Answer Adelso e Recorded In the last 12 months, was t here a time when you were not able to pay the mortgage or rent on time? Yes 06/27/2024 In the past 12 months, how m any times have you moved where you were living? 0 06/27/2024 At any time in the past 12 m [facility], were you homeless or living in a care home (including now)? 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 Gender Identity Not on file Sexual Orientation Not on file Occupation Industry Job Start Date Job End Date [employer] Not on file Not on file [...] FECES FIT IMMUNOASSAY Routine 03/17/2024 2:35 PM [employer] POLICE OFFICER Generalized abdominal pain Diarrhea, unspecified type Bilious vomiting with nausea Epigastric pain LIPID PROFILE Routine 07/12/2023 6:20 AM CDT from Last 3 Months or Most Recently Relevant to Health Maintenance Results * PTT (06/27/2024 3:19 PM CDT) PTT 27.8 23.0 - 38.4 sec 06/27/2024 3:36 PM CDT [facility] Blood BLOOD SPECIMEN / Unknown Venipuncture / Unknown 06/27/2024 3:19 PM CDT 06/27/2024 3:25 PM CDT us Diego Hannah MD LAB - COAGULATION ORDERABLES Fin al Result Performing Organization Address [facility] de Phone Number [facility] [address] [place] [address] * (ABNORMAL) PT-INR (06/27/2024 3:19 PM CDT) PT 13.8 11.3 - 14.8 sec 06/27/2024 3:36 PM CDT [facility] INR 1.07(L) 2 - 3 06/27/2024 3:36 PM CDT [facility] Blood BLOOD SPECIMEN / Unknown Venipuncture / Unknown 06/27/2024 3:19 PM CDT 06/27/2024 3:25 PM CDT Narrative [facility] - 06/27/2024 3:36 PM CDT Recommended therapeutic INR ranges for Oral Anticoagulant Therapy: 2.0-3.0 For prevention of Thrombosis or Embolism and treatment of Venous Thrombosis. 2.5- 3.5 for prevention of Recurrent Embolism or treatment of patients with Mechanical Prosthetic Heart Valves. us Diego Hannah MD LAB - COAGULATION ORDERABLES Fin al Result Performing Organization Address [facility] de Phone Number [facility] [address] [place] [address] * CT CERVICAL SPINE WO CONTRAST [id number] (06/27/2024 2:52 PM CDT) Anatomical Region Laterality [...] Final Result * CT BRAIN WO CONTRAST [id number] (06/27/2024 2:52 PM CDT) Anatomical Region Laterality [...] CASCADING REFLEX (06/27/2024 2:48 PM CDT) Pathologist [facility] Treponema pallidum Antibody Non Reactive Non Reactive 06/27/2024 6:46 PM CDT [facility] Blood BLOOD SPECIMEN / Unknown Venipuncture / Unknown 06/27/2024 2:48 PM CDT 06/27/2024 2:52 PM CDT Narrative [facility] - 06/27/2024 6:46 PM CDT No laboratory evidence of syphilis infection. Note: Circulating antibodies may be low or undetectable in early infection. If recent exposure is suspected, redraw sample in 2-4 weeks and repeat testing. us Diego Hannah MD LAB - SEROLOGY ORDERABLES Final Result [facility] [address] [place], [place] [address] * (ABNORMAL) CHLAMYDIA + GC AMPLIFIED PROBE ADDL SRCS (06/27/2024 10:37 AM CDT) [facility] Chlamydia Amplified Probe Negative Negative 06/29/2024 2:26 PM CDT [facility] ([facility]) Comment: INTERPRETIVE INFORMATION: C. trachomatis [...] Media Type Urine 06/29/2024 2:26 PM CDT [facility] ([facility]) Source Urine 06/29/2024 2:26 PM CDT [facility] ([facility]) GC Amplified Probe Positive(A) Negative 06/29/2024 2:26 PM CDT [facility]) Comment: INTERPRETIVE INFORMATION: N. gonorrhoeae [...] an alternative nucleic acid target. Performed By: [employer] [address] [place] [address] Receptionist Telephone Operator: Nicholas Valdez MD, PhD CLIA Number: [id number] Microbiology URINE / Unknown Collection / Unknown 06/27/2024 10:37 AM CDT 06/27/2024 10:45 AM CDT Diego Hannah MD LAB - MICROBIOLOGY ORDERABLES Fi nal Result [facility] [employer] [facility]) [address] [place] [address], [facility] * TRICHOMONAS VAGINALIS BY TMA (06/27/2024 10:37 AM CDT) [facility] [employer] Type Urine 06/29/2024 7:05 PM CDT [facility] [employer] ([facility]) Source Urine 06/29/2024 7:05 PM CDT [employer] ([facility]) Trichomonas vaginalis by TMA Negative Negative 06/29/2024 7:05 PM CDT [facility] [employer] ([facility]) Comment: Interpretive Information: Trichomonas vaginalis [...] or for other forensic purposes. Performed By: [facility] [employer] [address] [place] [address] Receptionist Telephone Operator: Nicholsa Valdez MD, PhD CLIA Number: [id number] Microbiology URINE / Unknown Collection / Unknown 06/27/2024 10:37 AM CDT 06/27/2024 10:45 AM CDT Diego Hannah MD LAB - MICROBIOLOGY ORDERABLES Fi nal Result [facility] [employer] [facility]) [address] [place] [address] * (ABNORMAL) DRUG ABUSE URINE SCREEN 10 (06/27/2024 10:36 AM CDT) Pathologist [facility] Amphetamines Screen Urine Positive(A) Negative 06/27/2024 11:01 AM CDT [facility] Barbiturates Screen Urine Negative Negative 06/27/2024 11:01 AM CDT [facility] Benzodiazepines Screen Urine Negative Negative 06/27/2024 11:01 AM CDT [facility] Cannabinoids Screen Urine Negative Negative 06/27/2024 11:01 AM CDT [facility] Cocaine Screen Urine Negative Negative 06/27/2024 11:01 AM CDT [facility] Methadone Screen Urine Negative Negative 06/27/2024 11:01 AM CDT [facility] Opiate Screen Urine Negative Negative 06/27/2024 11:01 AM CDT [facility] Phencyclidine Screen Urine Negative Negative 06/27/2024 11:01 AM CDT [facility] Tricyclics Screen Urine Negative Negative 06/27/2024 11:01 AM CDT [facility] Methamphetamine Screen Urine Positive(A) Negative 06/27/2024 11:01 AM CDT [facility] Buprenorphine Screen Urine Negative Negative 06/27/2024 11:01 AM CDT [facility] Oxycodone Screen Urine Negative Negative 06/27/2024 11:01 AM CDT [facility] Urine URINE / Unknown Collection / Unknown 06/27/2024 10:36 AM CDT 06/27/2024 10:45 AM CDT Narrative [facility] - 06/27/2024 11:01 AM [...] CHEMISTRY ORDERABLES Final Result Performing Organization Address City/State/[facility] Co de Phone Number [facility] [address] * HIV-1 HIV-2 ANTIBODY + HIV P24 AG PANEL (06/27/2024 10:36 AM CDT) Pathologist [facility] HIV1/2 Ab + P24 Ag NON-REACTI VE/NEGATIV E NON-REACTI VE/NEGATIV E 06/27/2024 11:30 AM CDT [facility] Blood BLOOD SPECIMEN / Unknown Venipuncture / Unknown 06/27/2024 10:36 AM CDT 06/27/2024 10:44 AM CDT Diego Hannah MD LAB - CHEMISTRY ORDERABLES Final Result [facility] [address] [place] [address], [facility] * (ABNORMAL) URINALYSIS REFLEX MICROSCOPIC REFLEX CULTURE (06/27/2024 10:36 AM CDT) Color UA [place](A) Yellow, Straw 06/27/2024 10:59 AM CDT [facility] Clarity UA Turbid(A) Clear 06/27/2024 10:59 AM CDT [facility] Glucose UA Negative Negative 06/27/2024 10:59 AM CDT [facility] Bilirubin UA Negative Negative 06/27/2024 10:59 AM CDT [facility] Ketone UA Negative Negative 06/27/2024 10:59 AM CDT [facility] Specific [place] UA 1.018 1.005 - 1.030 06/27/2024 10:59 AM CDT [facility] Blood UA 1+(A) Negative 06/27/2024 10:59 AM CDT [facility] pH UA 5.5 5.0 - 8.0 pH 06/27/2024 10:59 AM T [facility] Protein UA Trace(A) Negative 06/27/2024 10:59 AM CDT [facility] Urobilinogen UA Normal Normal mg/dL 06/27/2024 10:59 AM CDT [facility] Nitrite UA Negative Negative 06/27/2024 10:59 AM T [facility] Leukocyte UA 3+(A) Negative 06/27/2024 10:59 AM T [facility] RBC UA >100(A) 0 - 5 # /hpf 06/27/2024 10:59 AM T [facility] WBC UA >100(A) 0 - 5 # /hpf 06/27/2024 10:59 AM T [facility] Bacteria UA 3+(A) None Seen 06/27/2024 10:59 AM T [facility] Squamous Epithelial Cells >20(A) 0 - 5 /hpf 06/27/2024 10:59 AM T [facility] Mucus UA 4+ /LPF 06/27/2024 10:59 AM T [facility] Sperm UA Present(A) Absent 06/27/2024 10:59 AM CDT [facility] Reflex Status Culture to follow 06/27/2024 10:59 AM CDT [facility] Urine URINE SPECIMEN OBTAINED BY CLEAN CATCH PROCEDURE / Unknown Collection / Unknown 06/27/2024 10:36 AM CDT 06/27/2024 10:45 AM CDT us Diego Hannah MD LAB - URINALYSIS ORDERABLES Jinny l Result Performing Organization Address [facility] Co de Phone Number [facility] [address] [place] [address] * TSH REFLEX FREE T4 (06/27/2024 10:36 AM CDT) TSH 0.5666 0.35 - 4.94 uIU/mL 06/27/2024 11:26 AM CDT [facility] Comment:TSH Normal, Reflex F ree T4 Not Performed. Blood BLOOD SPECIMEN / Unknown Venipuncture / Unknown 06/27/2024 10:36 AM CDT 06/27/2024 10:45 AM CDT us Diego Hannah MD LAB - CHEMISTRY ORDERABLES Final Result Performing Organization Address [facility] de Phone Number [facility] [address] [place] [address] * HCG URINE QUALITATIVE (06/27/2024 10:36 AM CDT) hCG Qualitative Urine Negative Negative 06/27/2024 10:55 AM CDT [facility] Specific [place] UA 1.018 1.005 - 1.030 06/27/2024 10:55 AM CDT [facility] Urine URINE / Unknown Collection / Unknown 06/27/2024 10:36 AM CDT 06/27/2024 10:45 AM CDT us Diego Hannah MD LAB - URINALYSIS ORDERABLES Jinny l Result Performing Organization Address [facility] Co de Phone Number [facility] [address] [place] [address] * CULTURE URINE (06/27/2024 10:36 AM CDT) Culture Urine <10,000 CFU/mL urogenital hialry LINDA 06/29/2024 12:41 AM CDT [facility] Urine URINE SPECIMEN OBTAINED BY CLEAN CATCH PROCEDURE / Unknown Collection / Unknown 06/27/2024 10:36 AM CDT 06/27/2024 10:45 AM CDT Diego Hannah MD LAB - MICROBIOLOGY ORDERABLES Fi nal Result [facility] [address] [place], [place] [address], [facility] [phone] * CBC W AUTO DIFFERENTIAL (06/27/2024 10:36 AM CDT) Pathologist [facility] WBC 5.2 4.0 - 10.7 x10E9/L 06/27/2024 10:48 AM CDT [facility] RBC Count 4.21 3.90 - 5.20 x10E12/L 06/27/2024 10:48 AM CDT [facility] Hemoglobin 12.5 11.9 - 15.8 g/dL 06/27/2024 10:48 AM T [facility] Hematocrit 37.9 34.8 - 46.1 % 06/27/2024 10:48 AM [facility] MCV 90.0 80.0 - 98.0 fL 06/27/2024 10:48 AM [facility] MCH 29.7 26.7 - 33.6 pg 06/27/2024 10:48 AM [facility] MCHC 33.0 31.7 - 36.3 g/dL 06/27/2024 10:48 AM CDT [facility] RDW-CV 12.4 11.3 - 14.8 % 06/27/2024 10:48 AM T [facility] Platelet Count 241 150 - 420 x10E9/L 06/27/2024 10:48 AM [facility] MPV 9.1 7.8 - 11.4 fL 06/27/2024 10:48 AM [facility] Neutrophil % 52.4 41.0 - 74.0 % 06/27/2024 10:48 AM [facility] Lymphocyte % 37.8 17.0 - 47.0 % 06/27/2024 10:48 AM CDT [facility] Monocyte % 7.1 3.0 - 11.0 % 06/27/2024 10:48 AM CDT [facility] Eosinophil % 1.9 0.0 - 7.0 % 06/27/2024 10:48 AM T [facility] Basophil % 0.6 0.0 - 1.6 % 06/27/2024 10:48 AM T [facility] Immature Granulocytes % 0.2 0.0 - 1.0 % 06/27/2024 10:48 AM T [facility] Neutrophil Absolute 2.73 1.60 - 7.50 x10E9/L 06/27/2024 10:48 AM T [facility] Lymphocyte Absolute 1.97 1.00 - 4.40 x10E9/L 06/27/2024 10:48 AM T [facility] Monocyte Absolute 0.37 0.15 - 1.00 x10E9/L 06/27/2024 10:48 AM T [facility] Eosinophil Absolute 0.10 0.00 - 0.60 x10E9/L 06/27/2024 10:48 AM [facility] Basophil Absolute 0.03 0.00 - 0.13 x10E9/L 06/27/2024 10:48 AM T [facility] Blood BLOOD SPECIMEN / Unknown Venipuncture / Unknown 06/27/2024 10:36 AM CDT 06/27/2024 10:45 AM CDT Diego Hannah MD LAB - HEMATOLOGY ORDERABLES Jinny l Result Performing Organization Address City/State/[facility] Co de Phone Number [facility] [address] * (ABNORMAL) COMPREHENSIVE METABOLIC PANEL (06/27/2024 10:36 AM CDT) [facility] Glucose 88 70 - 125 mg/dL 06/27/2024 11:06 AM CDT [facility] Sodium 140 136 - 145 mmol/L 06/27/2024 11:06 AM T [facility] Potassium 3.7 3.4 - 5.1 mmol/L 06/27/2024 11:06 AM [facility] Chloride 108(H) 98 - 107 mmol/L 06/27/2024 11:06 AM [facility] CO2 23 22 - 29 mmol/L 06/27/2024 11:06 AM [facility] Calcium 9.24 8.4 - 10.2 mg/dL 06/27/2024 11:06 AM [facility] Anion Gap 9 6 - 16 mmol/L 06/27/2024 11:06 AM [facility] BUN 14.3 9.8 - 20.1 mg/dL 06/27/2024 11:06 AM [facility] Creatinine 0.65 0.57 - 1.11 mg/dL 06/27/2024 11:06 AM [facility] Alkaline Phosphatase 97 40 - 150 U/L 06/27/2024 11:06 AM [facility] ALT 12 7 - 30 U/L 06/27/2024 11:06 AM [facility] AST 24 5 - 34 U/L 06/27/2024 11:06 AM [facility] Protein Total 6.8 6.4 - 8.3 gm/dL 06/27/2024 11:06 AM [facility] Albumin 4.1 3.1 - 4.5 gm/dL 06/27/2024 11:06 AM [facility] Globulin Total 2.7 2.6 - 4.0 gm/dL 06/27/2024 11:06 AM [facility] Albumin/Globulin Ratio 1.5 0.9 - 1.6 06/27/2024 11:06 AM [facility] Bilirubin Total 0.4 0.2 - 1.2 mg/dL 06/27/2024 11:06 AM [facility] eGFR >90 >90 mL/min/1.7 3m2 06/27/2024 11:06 AM [facility] Comment:The GFR result was c alculated using the updated CKD-EPI Creatinine Equation (2020). Blood BLOOD SPECIMEN / Unknown Venipuncture / Unknown 06/27/2024 10:36 AM CDT 06/27/2024 10:45 AM T us Diego Hannah MD LAB - CHEMISTRY ORDERABLES Final Result Performing Organization Address City/State/[facility] Co de Phone Number [facility] [address] * ALCOHOL ETHYL BLOOD (06/27/2024 10:36 AM CDT) Ethanol <10.0 <10 mg/dL 06/27/2024 11:16 AM CDT [facility] Blood BLOOD SPECIMEN / Unknown Venipuncture / Unknown 06/27/2024 10:36 AM CDT 06/27/2024 10:45 AM CDT Narrative [facility] - 06/27/2024 11:16 AM CDT For Medical Use Only us Diego Hannah MD LAB - CHEMISTRY ORDERABLES Final Result Performing Organization Address City/[facility]/ZIP Co de Phone Number [facility] [address] [place] [address] * (ABNORMAL) SALICYLATE LEVEL BLOOD (06/27/2024 10:36 AM CDT) Salicylate <5.0(L) 15.0 - 30.0 mg/dL 06/27/2024 11:07 AM CDT [facility] Blood BLOOD SPECIMEN / Unknown Venipuncture / Unknown 06/27/2024 10:36 AM CDT 06/27/2024 10:44 AM CDT us Diego Hannah MD LAB - CHEMISTRY ORDERABLES Final Result [facility] [address] [place] [address] * HEPATITIS SCREEN ACUTE (06/27/2024 10:36 AM CDT) HAV Antibody IgM Non Reactive Non Reactive 06/27/2024 4:02 PM CDT [facility] HBsAg Non Reactive Non Reactive 06/27/2024 4:02 PM CDT [facility] HBc Antibody IgM Non Reactive Non Reactive 06/27/2024 4:02 PM CDT [facility] HCV Antibody Screen Non Reactive Non Reactive 06/27/2024 4:02 PM CDT [facility] Blood BLOOD SPECIMEN / Unknown Venipuncture / Unknown 06/27/2024 10:36 AM CDT 06/27/2024 1:24 PM CDT Narrative [facility] - 06/27/2024 4:02 PM CDT Non Reactive - Antibodies to Hepatitis C virus (HCV) were not detected, result does not exclude early acute HCV infection. us Diego Hannah MD LAB - CHEMISTRY ORDERABLES Final Result [facility] [address] [place], [place] [id number] [place] [address] * ACETAMINOPHEN LEVEL (06/27/2024 10:36 AM CDT) Acetaminophen <5.0 <=30.0 ug/mL 06/27/2024 11:06 AM CDT [facility] Blood BLOOD SPECIMEN / Unknown Venipuncture / Unknown 06/27/2024 10:36 AM CDT 06/27/2024 10:44 AM CDT Narrative [facility] - 06/27/2024 11:06 AM CDT Significantly reduced Acetaminophen recovery has been demonstrated in situations where testing has been performed immediately after introduction of N- acetylcysteine (NAC). us Diego Hannah MD LAB - CHEMISTRY ORDERABLES Final Result Performing Organization Address [facility]/ZIP Co de Phone Number [facility] [address] * (ABNORMAL) OCCULT BLOOD FECES FIT IMMUNOASSAY (03/17/2024 2:35 PM [employer]ICE OFFICER) Occult Blood 1 Collection Date 03/15/24 03/17/2024 4:59 PM [employer] [facility] Occult Blood 1 Collection Time 119903/17/2024 4:59 PM [employer]ICE OFFICER [facility] Occult Blood 2 Collection Date 03/16/24 03/17/2024 4:59 PM [employer]ICER [facility] Occult Blood 2 Collection Time 1200 03/17/2024 4:59 PM [employer]ICE OFFICER [facility] Occult Blood 3 Collection Date 03/17/24 03/17/2024 4:59 PM [employer] [facility] Occult Blood 3 Collection Time 1200 03/17/2024 4:59 PM [employer]ICE OFFICER [facility] Occult Blood 1 Negative Negative 03/17/2024 4:59 PM [employer] OFFICER [facility] Occult Blood 2 Positive(A) Negative 4:59 PM [employer]ICER [facility] Occult Blood 3 Negative Negative 03/17/2024 4:59 PM [employer]ICER [facility] Stool STOOL SPECIMEN / Unknown Collection / Unknown 03/17/2024 2:35 PM [employer]ER 03/17/2024 4:46 PM [employer]ER Manda Brooks CORONER'S JUROR-MERCHANDISING REPRESENTATIVE LAB - BODY FLUID ORDERABLE S Final Result [facility] [address] [place], [place] [address] * (ABNORMAL) LIPID PROFILE (07/12/2023 6:20 AM CDT) [facility] Cholesterol 119 <200 mg/dL 07/12/2023 6:49 AM CDT [facility] Triglycerides 72 <150 mg/dL 07/12/2023 6:49 AM CDT [facility] HDL Cholesterol 46 >40 mg/dL 4 6:49 AM CDT [facility] Chol HDL Ratio 2.6 1.0 - 6.0 07/12/2023 6:49 AM CDT [facility] LDL Calculated 59(L) 65 - 130 mg/dL 07/12/2023 6:49 AM CDT [facility] VLDL Calculated 14 <=30 mg/dL 4 6:49 AM CDT [facility] Blood BLOOD SPECIMEN / Unknown Lab Venipuncture / Unknown 07/12/2023 6:20 AM CDT 07/12/2023 6:27 AM CDT Narrative [facility] - 07/12/2023 6:49 AM [...] 9.5 ...................... 7.0 3X AVERAGE...................>23........................>11 Courtney Peters CORONER'S JUROR-MERCHANDISING REPRESENTATIVE LAB - CHEMISTRY ORDERAB LES Final Result [facility] [address] from Last 3 Months or Most Recently Relevant to Health Maintenance Additional Health Concerns Infection Onset Date Last Indicated MRSA Comment:Arm lesion 12/10/23; 07/11/2023 12/10/2023 Insurance [employer]AN [facility] * Guarantor: E-SCREEN,SOIL Account Type Relation to Patient Date of Phone Billing Address Company Employer [employer] [address] Advance Directives Documents on File Type Date Recorded Patient Hand Cloth Examiner Expl anation Adv Directive/Living Will/POA 10/06/2012 1:02 [...]
--- OUTSIDE RECORDS SUMMARY | 2024-07-13 23:09 | XMS_ITS | Encounter Summary ---
Author Organization [facility] Address [address] [place] [address] Phone Care Team Providers Care Field Hauler Name Role Phone Provider, Not On File Primary Care Provider Unav ailable Encounter Details Date Type Department Care Team (Late st Contact Info) Description 05/22/2024 Results Follow-Up [facility] Emergency Dept. Services [address] [place] [address] Herlinda Sanchez LPN [place] Culture, Urine Social History Tobacco Use Types [...] documented as of this encounter Care Teams Field Hauler Relationship Specialty Start Date End Date Provider, Not On File [place] PCP - General 10/13/13 documented as of this encounter
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
--- OUTSIDE RECORDS SUMMARY | 2024-07-13 23:10 | XMS_ITS | Patient Health Record ---
Author Organization [facility] Address [address] [place] [address] Care Team Providers Care Drywall Finishing Foreman Name Role Phone Sunil Matos Primary Care Provider Brad Aponte Unavailable [phone] Peggy Juares Unavailable [phone] Mar Valencia Unavailable [phone] Allergies Allergen (clinical drug ingredient) Drug/Non Drug Allergy documented on EMR Reaction Allergy Type Onset Date Status Vaccine product containing Influenza virus antigen (medicinal product) Flu vaccine (uncoded) Chest numbness Allergy Active gabapentin Gabapentin (uncoded) Seizures Allergy Active nortriptyline Nortriptoline (uncoded) Unknown Allergy Active estrogens, conjugated (SENIOR [facility]IVING) Premarin (uncoded) Unknown Allergy Activ e Septra (uncoded) Rash Allergy Act alecia ketorolac Toradol (uncoded) Hives Allergy Ac tive tramadol Tramadol (uncoded) Hives Allergy A ctive Results Component Value Reference Range Notes Test, Urine Reviewed date:07/11/2024 01:30:50 PM Interpretation: Performing Lab: Notes/Report: Test, Urine neg Negative - Negative 12 Panel Urine Drug Screen Reviewed date:07/11/2024 01:30:43 PM Interpretation: Performing Lab: Notes/Report: THC neg ANGELES neg MOP (OPI) neg AMP neg MET neg BAR neg BZO neg MDMA neg MTD neg OXY neg PCP neg BUP neg HIV Screen *HIV 1, 2 Ab, p24 Ag (080786) (Not yet reviewed by provider) Interpretation: Performing Lab:[facility], [address] [facility], [place], Phone - [phone], Director - [facility] Notes/Report: HIV Ab/p24 Ag Screen Non Reactive Non Reactive HIV-1/HIV-2 antibodies and HIV-1 p24 antigen were NOT detected. There is no laboratory evidence of HIV infection. HIV Negative CMP 14 Comprehensive Metabol ic Panel* (Not yet reviewed by provider) Interpretation: Performing Lab:[facility], [address] [facility], Phone - [phone], Director - [facility] Notes/Report: Glucose 87 70-99 mg/dL BUN [...] (Not yet reviewed by provider) Interpretation: Performing Lab:[facility], [address] [facility], Phone - [phone], Director - [facility] Notes/Report: WBC 4.8 3.4-10.8 x10E3/uL RBC [...] % Immature Grans (Abs) 0.0 0.0-0.1 x10E3/uL Breathalyzer Reviewed date:07/05/2024 03:16:37 PM Interpretation: Performing Lab: Notes/Report: ZAID 0.000 QuantiFERON-TB Gold Plus (18 2195) (Not yet reviewed by provider) Interpretation: Performing Lab:[facility], [address] [place] [address], Phone - [phone], Director - Ida Notes/Report: QuantiFERON Incubation Incubation [...] 2 nights in a row in a retirement, group home, senior living center, or juvenile correctional facility? 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) Active confirmed Problem Adult health examination (707556629) Adult general medical exam (Z00.00) Active confirmed Vital Signs Heart Rate 78 /min 07/05/2024 Temperature 97.6 degrees Fahrenheit 07/05/2024 Respiratory Rate 20 /min 07/05/2024 Blood pressure diastolic 62 mm Hg 07/05/2024 Oximetry 100 % 07/05/2024 Height 63 in 07/05/2024 Blood pressure systolic 98 mm Hg 07/05/2024 Weight 111.4 lbs 07/05/2024 BMI 19.73 kg/m2 07/05/2024 Encounters Encounter Location Date Provider Diagnosis [address] [address] 07/05/2024 Mar Valencia [address] [place] [address] 07/11/2024 Brad Aponte PTSD (post-traumatic stress disorder) F43.10 and MDD (major depressive disorder), recurrent, severe, with psychosis F33.3 [facility] [address] [place] [address] 07/05/2024 Peggy Juares Adult general medical exam Z00.00 [facility] [address] [facility] [place] [address] 07/05/2024 Peggy Juares Insomnia G47.00 Assessments Encounter [...] Screen *HIV 1, 2 Ab, p24 Ag (540756) 07/05/2024 CBC With Differential/Platelet* 07/06/19 CMP 14 Comprehensive Metabolic Panel* QuantiFERON-TB Gold Plus (595663) 2024 Next Appt Details Provider Name:Eriberto Ruiz , 07/17/2024 02:00:00 PM, [address], [place], [address], Provider Name:Brad sarkar, 07/18/2024 01:40:00 PM, [address], [place], [address], Insurance Providers Payer Name Payer Address Payer Phone Subscriber Number Group Number Insured Name Patient Relationship to Insured Coverage Start Date Coverage End Date [facility] Attn Claims Department [address] [place] [phone] [id number] Jennifer Mathis Self - patient is the insured [facility] Attn Claims Department [address] [place] [address] [id number] Jennifer Mathis Self - patient is the insured 5 Medical (General) History Medical History History ICD Code SMA syndrome herniated disk neck torn rotator cuffs and tendon in right s houlder budging disks in lower back mental health history Surgical History Surgery Date(Month/Year) Hospitalization History Reason Date(Month/Year) [facility] 06/2024
--- OUTSIDE RECORDS SUMMARY | 2024-07-13 23:11 | XMS_ITS | Encounter Summary ---
Author Organization [facility] Address [address] [place] [address] Phone Care Team Providers Care Electronics Processing Supervisor Name Role Phone Identified, No Provider Primary Care Provider Un available Reason for Visit * Reason Onset Date Comments Appointment Request 10/04/2020 Encounter Details Date Type Department Care Team ([facility] Contact Info) Description 10/04/2020 Telephone Gen Surgery [facility] [address] [place] [address] Provider, Unknown Appointment Request Social [...] Information Order: GENERAL SURGERY FOLLOW UP [Custom: [id number]] Order #: [id number]: 1 Priority: Routine Class: Normal(N) Full name [...] Time MRSA Comment:Added from external infection. Source: [facility]. 07/11/2023 documented as of this encounter Care Teams Electronics Processing Supervisor Relationship Specialty Start Date End Date Identified, No Provider PCP - General 09/26/20 documented as of this encounter
--- OUTSIDE RECORDS SUMMARY | 2024-07-13 23:11 | XMS_ITS | Clinical Summary ---
Author Organization [facility] Address [address] [place] [address] Phone Care Team Providers Care Counter Help Name Role Phone Identified, No Provider Primary [...] 05/27/2024 10:22 PM CDT Emergency Emergency Room [address] [place] [address] Gt Sutherland MD Constipation, unspecified constipation type (Primary Dx) Discharge Disposition: Discharged to Home or Self Care 05/25/2024 10:06 AM CDT - 05/25/2024 3:04 PM CDT Emergency Emergency Room [address] [place] [address] Tahir Young MD Recurrent abdominal pain (Primary [...] 6:31 PM CDT Accession Exam Completed Date/Time [id number] XR KUB UPRIGHT ONLY (INCLUDE DIAPHRAGM) 05/27/2024 [...] Santos MD - 05/27/2024 Accession Exam CompletedDate/Time [id number] XR KUB UPRIGHT ONLY (INCLUDE DIAPHRAGM) 518:05 [...] URINE , POCT (05/27/2024 4:46 PM CDT) [facility] , Qual-Urine (POCT) Negative INTERNAL CONTROL OK Yes Kit Expiration Date 2025-05-11 Kit Lot # [id number] Gt Blackwell APRN INPATIENT POINT OF C ARE Final Result * TROPONIN, HIGH SENSITIVITY (05/27/2024 4:45 PM CDT) [facility] TROPONIN, HIGH SENSITIVITY <3 0 - 4 ng/L [facility] Comment: Refer to the High Sensitivity Troponin Algorithm for interpretation and risk stratification guidelines. [facility], [address] [place] [address] 05/27/2024 4:45 PM CDT 05/27/2024 5:09 PM CDT Gt Blackwell APRN HEM/CHEM/IMMUN-BLOOD Final Result [facility] [address] [place] [address], [place] * (ABNORMAL) UA WITH REFLEX CULTURE IF INDICATED (05/27/2024 4:45 PM CDT) COLOR Yellow COLORLESS:CLIFF L [facility] APPEARANCE Cloudy(A) CLEAR [facility] SP. GRAVITY 1.021 1.003 - 1.035 arbitrary unit [facility] PH 6.0 4.5 - 8.0 pH [facility] PROTEIN Negative NEGATIVE mg/dL [facility] GLUCOSE Negative NEGATIVE mg/dL [facility] KETONE Negative NEGATIVE mg/dL [facility] BILIRUBIN Negative NEGATIVE [facility] BLOOD Negative NEGATIVE [facility] NITRITE Negative NEGATIVE [facility] UROBILINOGEN 0.2 <1.0 mg/dL [facility] LEUKOCYTE ESTERASE Negative NEGATIVE [facility] RBC 3 0 - 20 /uL [facility] WBC 24 0 - 25 /uL [facility] CASTS, URINE <1 0 - 2 /uL [facility] SQUAMOUS EPI 174(H) 0 - 30 /uL [facility] Comment:[facility], [address] [place] [address] VOIDED URINE SPECIMEN / Unknown 05/27/2024 4:45 PM CDT 05/27/2024 5:03 PM CDT us Gt Blackwell VOLCANOLOGY PROFESSOR HEM/CHEM/IMMUN-NON-B LOOD Final Result [facility] [address] [place] [address], [place] * CBC W/DIFF (05/27/2024 4:45 PM CDT) Only the most recent of2 resultswithin the time period is included. WBC 7.38 4.00 - 11.00 10*3/uL [facility] RBC 4.05 3.50 - 5.20 10*6/uL [facility] HGB 12.3 11.0 - 16.0 g/dL [facility] HCT 37.8 34.0 - 47.0 % [facility] MCV 93.3 80.0 - 100.0 fL [facility] MCH 30.4 26.0 - 33.0 pg [facility] MCHC 32.5 31.0 - 35.0 g/dL [facility] RDW 12.8 12.0 - 15.0 % [facility] RDW-SD 43.7 38.0 - 52.0 fL [facility] PLATELET 279 140 - 400 10*3/uL [facility] MPV 9.5 9.0 - 12.0 fL [facility] SEG 70.7 % [facility] LYMPHOCYTE 23.4 % [facility] MONOCYTE 4.7 % [facility] EOSINOPHIL 0.8 % [facility] BASOPHIL 0.1 % [facility] IMMATURE GRANULOCYTE 0.3 % [facility] ABSOLUTE NEUTR 5.21 1.60 - 7.70 10*3/uL [facility] ABSOLUTE LYMPH 1.73 1.00 - 4.90 10*3/uL [facility] ABSOLUTE MONO 0.35 0.00 - 1.10 10*3/uL [facility] ABSOLUTE EOS 0.06 0.00 - 0.50 10*3/uL [facility] ABSOLUTE BASO 0.01 0.01 - 0.20 10*3/uL [facility] ABSOLUTE IMMATURE GRANULOCYTE 0.02 0.00 - 0.09 10*3/uL [facility] Comment:[facility], [address] [place] [address] 05/27/2024 4:45 PM CDT 05/27/2024 5:09 PM CDT us Gt Blackwell VOLCANOLOGY PROFESSOR HEM/CHEM/IMMUN-BLOOD Final Result [facility] [address] [place] [address], * (ABNORMAL) COMPREHENSIVE METABOLIC PANEL (05/27/2024 4:45 PM CDT) Only the most recent of2 resultswithin the time period is included. CALCIUM 8.6(L) 8.9 - 10.6 mg/dL [facility] GLUCOSE 83 74 - 100 mg/dL [facility] BUN 21(H) 7 - 19 mg/dL [facility] CREATININE 0.80 0.55 - 1.02 mg/dL [facility] TOTAL PROTEIN 6.3 6.0 - 8.0 g/dL [facility] ALBUMIN 3.4(L) 3.5 - 5.0 g/dL [facility] BILIRUBIN, TOTAL 0.1(L) 0.2 - 1.2 mg/dL [facility] AST 16 9 - 43 U/L [facility] ALT 8 0 - 34 U/L [facility] ALKALINE PHOSPHATASE 77 40 - 150 U/L [facility] SODIUM 140 136 - 145 mmol/L [facility] POTASSIUM 4.3 3.5 - 5.1 mmol/L [facility] CHLORIDE 107 98 - 107 mmol/L [facility] CO2 23.0 22.0 - 29.0 mmol/L [facility] GFR: CKD-EPI 2020 CREAT 91 arbitrary unit [facility] Comment: eGFR of 90 or higher [...] for the assessment of chronic kidney disease. [facility], [address] [place] [address] 05/27/2024 4:45 PM CDT 05/27/2024 5:09 PM CDT us Gt Blackwell VOLCANOLOGY PROFESSOR HEM/CHEM/IMMUN-BLOOD Final Result [facility] [address] [place] [address], [place] * LIPASE (05/27/2024 4:45 PM CDT) Only the most recent of2 resultswithin the time period is included. LIPASE 29 8 - 78 U/L [facility] Comment:[facility], [address] [place] [address] 05/27/2024 4:45 PM CDT 05/27/2024 5:09 PM CDT us Gt Blackwell VOLCANOLOGY PROFESSOR HEM/CHEM/IMMUN-BLOOD Final Result Performing Organization Address [facility]/ZIP Co de Phone Number [facility] [address] [place] [address], [place] * LACTIC ACID, ISTAT (POC) (05/27/2024 4:43 PM CDT) LACTIC ACID, ISTAT (POC) 1.4 0.5 - 2.0 mmol/L [facility] Comment:[facility], [address] [place] [address] 05/27/2024 4:43 PM CDT 05/27/2024 4:45 PM CDT us Gt Sutherland MD HEM/CHEM/IMMUN-BLOOD F inal Result Performing Organization Address [facility] Co de Phone Number [facility] [address] [place] [address], [place] * ECG 12 LEAD (05/27/2024 4:25 [...] GT BLACKWELL Confirmed By: GOLDEN GALEANO MD [facility] 05/27/2024 4:25 PM CDT us Gt Blackwell VOLCANOLOGY PROFESSOR [facility] - [facility] Final Result Performing Organization Address [facility] Co de Phone Number [address] [address], [place] * CT ABDOMEN/PELVIS WITH CONTRAST (05/25/2024 12:52 PM CDT) Anatomical Region Laterality Modality Abdomen, Pelvis N/A Computed Tomogra phy 05/25/2024 12:4 8 PM CDT Narrative 05/25/2024 1:05 PM CDT Accession Exam Completed Date/Time [id number] CT ABDOMEN/PELVIS WITH CONTRAST 05/25/2024 12:52 Requesting: [...] Houston MD - 05/25/2024 Accession Exam CompletedDate/Time [id number] CT ABDOMEN/PELVIS WITH CONTRAST 2:52 Requesting: TAHIR [...] external infection. Source: [facility], [facility], [facility] [employer] [facility]. 07/11/2023 Insurance [facility] Advance Directives For more information, please contact: [phone] * Full Code (Latest Code Status on File) Date Activated Date Inactivated Comments 09/27/2020 8:24 AM 10/04/2020 10:27 PM Care Teams Counter Help Relationship Specialty Start Date End Date Identified, No Provider PCP - General 09/26/20
--- OUTSIDE RECORDS SUMMARY | 2024-07-13 23:11 | XMS_ITS ---
Author Organization [facility] Address [address] [place] [address] Care Team Providers Care Refuse Collector Name Role Phone Sunil Matos Primary Care Provider Peggy Juares [phone] Medications Medication SIG (Take, Route, Fr equency, Duration) Notes Start Date End Date Status traZODone HCl 50 MG 1 tablet at bedtime as needed Orally NIGHTLY for 28 days Activ e Problems Problem Type SNOMED Code ICD Code Onset Dates Problem Status W/U Status Risk Notes Problem Insomnia (G47.00) Active confirmed Encounters Encounter Location Date Provider Diagnosis [facility] [address] [place] [address] 07/05/2024 Peggy Juares Insomnia G47.00 Assessments Encounter Date Diagnosis (ICD Code) Assessment Notes Treatment Notes Treatment Clinical Notes Section Notes 07/05/2024 Insomnia (ICD-10 - G47.00) Plan Of Treatment Medication Medication Name Sig Start Date Stop Date Notes traZODone HCl 50 MG 1 tablet at bedtime as needed Orally NIGHTLY for 28 days Next Appt Details Provider Name:Eriberto Ruiz , 07/17/2024 02:00:00 PM, [address], [place], [address], Provider Name:Brad sarkar, 07/18/2024 01:40:00 PM, [address], [place], [address], Progress Notes * Jennifer MATHIS RDOB: 6 (49 yo F)Acc No.[id number]:07/05/2024 UNLOCKED PROGRESS NOTE Patient: Jennifer JUNG :1975 A ge:49 Y S ex:Female Address:[address] [place] [address], [address] * Refills Refill traZODone HCl Tablet, 50 [...]
--- OUTSIDE RECORDS SUMMARY | 2024-07-13 23:11 | XMS_ITS | Encounter Summary ---
Author Organization [facility] Address [address] [place] [address] Care Team Providers Care Church History Professor Name Role Phone Mikael Saxena MD Primary Care Provider [phone] Wali Shipman SULFUR BURNER Unavailable [phone] Ana Maria Wheeler RN Unavailable [phone] PcpShabana Primary Care-/-[facility] Primary Care Provider Unavailable Reason for Visit * Reason Onset Date Comments Refill Request 11/04/2022 Encounter Details Date Type Department Care Team (Late st Contact Info) Description 11/04/2022 Refill [facility] Medical [facility] - Family Medicine [address] [place] [phone] Mikael Saxena MD [address] [address] Refill Request Social History Tobacco Use Types [...] Date Recorded PHQ2 TOTAL SCORE 6 09/11/2022 [facility] - Occupational [...] place to sleep or slept in a assisted (including now)? 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 documented in this encounter Plan of Treatment Not on file documented as of this encounter Visit Diagnoses Not on filedocumented in this encounter Additional Health Concerns Infection Onset Date Last Indicated Resolved Time MRSA Comment:Arm lesion 12/10/23; 07/11/2023 12/10/2023 CDIFF Under Investigation 03/13/2024 03/17/2024 8:17 PM LUMBER YARD WORKER COVID-19 Under Investigation 03/13/2024 03/13/2024 03/24/2024 4:33 AM LUMBER YARD WORKER documented as of this encounter Care Teams Church History Professor Relationship Specialty Start Date End Date Mikael Saxena MD PCP - General Internal Medicine 09/24/22 08/09/23 Pcp, [facility]-Im/Fm-[facility] Mendez PCP - General 09/06/23 09/11/23 Wali Shipman MSW Outpatient Doctor Naturopathic Care Management 12/28/22 Ana Maria Wheeler RN Chain Forming Machine OperatorPin Ticket Machine Operator 07/22/23 07/26/23 documented as of this encounter
--- OUTSIDE RECORDS SUMMARY | 2024-07-13 23:11 | XMS_ITS | Encounter Summary ---
Author Organization [facility] Address [address] [place] [address] Care Team Providers Care Private Duty Nurse Name Role Phone Mikael Saxena MD Primary Care Provider [phone] Wali Shipman PLATING MACHINE OPERATOR Unavailable [phone] Dleia Brito RN Unavailable Uri Moe MD Primary Care Provider [phone] Mikael Saxena MD Primary Care Provider [phone] Wali Shipman PLATING MACHINE OPERATOR Unavailable [phone] Ana Maria Wheeler RN Unavailable [phone] Pcp, [facility]-Im/[facility] Primary Care Provider Unavailable Encounter Details Date Type Department Care Team (Late st Contact Info) Description 09/24/2021 Telemedicine [facility] Medical [facility] - Family Medicine [address] [place] [phone] Mikael Saxena MD [address] [address] Social History Tobacco Use Types [...] on file Legal Sex 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 GROVE SUPERINTENDENT Gender Identity Not on file Sexual Orientation Not on file Occupation Industry Job Start Date Job End Date [employer] Not on file Not on file [...] of Assessment Author No 09/02/2021 12:23 PM TMOMYT Ashlie Sanderson RN documented as of this [...] CDIFF Under Investigation 03/13/2024 03/17/2024 8:17 PM GROVE SUPERINTENDENT COVID-19 Under Investigation 03/13/2024 03/13/2024 03/24/2024 4:33 AM GROVE SUPERINTENDENT documented as of this encounter Care Teams Private Duty Nurse Relationship Specialty Start Date End Date Mikael Saxena MD PCP - General Internal Medicine 09/23/21 09/10/22 Uri Moe MD [address] [address] PCP - General Gastroenterology 09/11/22 09/23/22 Mikael Saxena MD PCP - General Internal Medicine 09/24/22 08/09/23 Pcp, [facility] Primary Care-Im/[facility] PCP - General 09/06/23 09/11/23 Wali Shipman MSW Outpatient Associate Professor Of Communication Care Management 09/08/2208/16 Delia Brito RN Tube InspectorSeat Maker 09/08/22 09/15/22 Wali Shipman MSW Outpatient Associate Professor Of Communication Care Management 12/28/22 Ana Maria Wheeler RN Tube InspectorSeat Maker 07/22/23 07/26/23 documented as of this encounter
--- OUTSIDE RECORDS SUMMARY | 2024-07-13 23:11 | XMS_ITS | Encounter Summary ---
Author Organization [facility] Address [address] [place] [address] Care Team Providers Care Catalogue Maker Name Role Phone Mikael Saxena MD Primary Care Provider [phone] Wali Shipman PERSONNEL CONSULTANT Unavailable [phone] Delia Brito RN Unavailable Uri Moe MD Primary Care Provider [phone] Mikael Saxena MD Primary Care Provider Wali Shipman PERSONNEL CONSULTANT Unavailable [phone] Ana Maria Wheeler RN Unavailable [phone] Pcp, [facility]-Im/-[facility] Primary Care Provider Unavailable Reason for Visit * Reason Onset Date Comments General 10/13/2021 Encounter Details Date Type Department Care Team (Late st Contact Info) Description 10/13/2021 Telephone [facility] Medical [facility] - Family Medicine [address] [place] [phone] Mikael Saxena MD [place] [address] [place] [address] General Social History Tobacco Use [...] on file Legal Sex 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 CAR REPAIRMAN Gender Identity Not on file Sexual Orientation Not on file Occupation Industry Job Start Date Job End Date [place] [employer] Not on file Not on file [...] CDIFF Under Investigation 03/13/2024 03/17/2024 8:17 PM CAR REPAIRMAN COVID-19 Under Investigation 03/13/2024 03/13/2024 03/24/2024 4:33 AM CAR REPAIRMAN documented as of this encounter Care Teams Catalogue Maker Relationship Specialty Start Date End Date Mikael Saxena MD PCP - General Internal Medicine 09/23/21 09/10/22 Uri Moe MD 2 [facility] [address] [address] PCP - General Gastroenterology 09/11/22 09/23/22 Mikale Saxena MD PCP - General Internal Medicine 09/24/22 08/09/23 Pcp, [facility] Primary Care-Im/-[facility] PCP - General 09/06/23 09/11/23 Wali Shipman MSW Outpatient Dental Practice Manager Care Management 09/08/2208/16 Delia Brito RN Product Responsibility LiaisonEnergy Trading Analyst 09/08/22 09/15/22 Wali Shipman MSW Outpatient Dental Practice Manager Care Management 12/28/22 Ana Maria Wheeler RN Product Responsibility LiaisonEnergy Trading Analyst 07/22/23 07/26/23 documented as of this encounter
--- OUTSIDE RECORDS SUMMARY | 2024-07-13 23:11 | XMS_ITS | Encounter Summary ---
Author Organization [facility] Address [address] [place] [address] Care Team Providers Care Social Work Lecturer Name Role Phone Mikael Saxena MD Primary Care Provider [phone] Wali Shipman SUPERINTENDENT WAREHOUSE Unavailable [phone] Ana Maria hWeeler RN Unavailable [phone] PcpShabana Primary Care-/-[facility] Primary Care Provider Unavailable Reason for Visit * Reason Onset Date Comments MEDICATION REFILL 11/16/2022 Encounter Details Date Type Department Care Team (Late st Contact Info) Description 11/16/2022 Refill [facility] Medical [facility] - Family Medicine [address] [place] [phone] Mikael Saxena MD [address] [address] MEDICATION REFILL Social History Tobacco Use Types [...] Date Recorded PHQ2 TOTAL SCORE 6 09/11/2022 [facility] Occupat ional Health - Occupational Stress [...] place to sleep or slept in a fpc (including now)? Patient refused 08/31/2022 Comments No Sex and Gender Information Value Date Recorded Sex Assigned at Not on file Legal Sex 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 SUPERVISOR OF OFFICIALS Gender Identity Not on file Sexual Orientation Not on file Occupation Industry Job Start Date Job End Date [place] [employer] Not on file Not on file [...] CDIFF Under Investigation 03/13/2024 03/17/2024 8:17 PM SUPERVISOR OF OFFICIALS COVID-19 Under Investigation 03/13/2024 03/13/2024 03/24/2024 4:33 AM SUPERVISOR OF OFFICIALS documented as of this encounter Care Teams Social Work Lecturer Relationship Specialty Start Date End Date Mikael Saxena MD PCP - General Internal Medicine 09/24/22 08/09/23 Pcp, Shabana Luis Primary Care-Im/Fm-Mehul Mendez PCP - General 09/06/23 09/11/23 Wali Shipman MSW Outpatient Public Policy Professor Care Management 12/28/22 Ana Maria Wheeler RN Communications MaintainerFabrication Technician 07/22/23 07/26/23 documented as of this encounter
--- OUTSIDE RECORDS SUMMARY | 2024-07-13 23:11 | XMS_ITS | Encounter Summary ---
Author Organization [facility] Address [address] [place] [address] Care Team Providers Care Supervisor Cartography Name Role Phone Mikael Saxena MD Primary Care Provider [phone] Wali Shipman CAMERA MECHANIC Unavailable [phone] Ana Maria Wheeler RN Unavailable [phone] PcpShabana Primary Care-/-[facility] Primary Care Provider Unavailable Reason for Visit * Reason Onset Date Comments Medication Issue 12/07/2022 Encounter Details Date Type Department Care Team (Late st Contact Info) Description 12/07/2022 Telephone [facility] Medical [facility] - Family Medicine [address] [place] [phone] Mikael Saxena MD [address] [address] Medication Issue Social History Tobacco [...] Date Recorded PHQ2 TOTAL SCORE 6 09/11/2022 [facility] of Occupat ional Health - Occupational Stress [...] on file Legal Sex 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 Primary Care-Im/Fm-[place] PCP - General 09/06/23 09/11/23 Wali Shipman, JURGEN Outpatient Tax Associate Attorney Care Management 12/28/22 Ana Maria Wheeler RN Sales Product SpecialistEtl Manager 07/22/23 07/26/23 documented as of this encounter
[2024-07-14] VITALS (8 sets, daily range): BP systolic 85–131; BP diastolic 44–115; PULSE 59–69; RESP 12–20; O2SAT 97–99
--- NOTE | 2024-07-14 00:13 | ED.HA ---
HPI - Headache General Chief Complaint: Headache Stated Complaint: headache Time Seen by Provider: 07/13/24 23:03 Source: patient and old records reviewed Mode of arrival: ambulatory Limitations: no limitations History of Present Illness HPI Narrative: Patient is a 49-year-old female who presents the ED with report of migraine headache. Patient is currently residing at [facility]. She reports she has had a persistent migraine headache since 07/06. States pain is diffuse. Was seen in the ED here on 07/09, given migraine cocktail with minimal improvement. She did have a CT scan of her brain performed at that time which was unremarkable. Patient reports she has been given Tylenol and ibuprofen at [facility], but denies improvement. Reports photophobia, phonophobia, lightheadedness, nausea, vomiting. Denies frequent history of migraines. Denies fevers, focal numbness or weakness, vision changes. Related Data Allergies Allergy/AdvReac Type Severity Reaction Status Date / Time estrogens, conjugated (From Allergy Mild Unknown Verified 07/13/24 21:03 Premarin) gabapentin Allergy Mild Unknown Verified 07/13/24 21:03 influenza virus vaccine, Allergy Mild Unknown Verified 07/13/24 21:03 live atten ketorolac (From Toradol) Allergy Mild Unknown Verified 07/13/24 21:03 nortriptyline Allergy Mild Unknown Verified 07/13/24 21:03 sulfamethoxazole (From Allergy Mild Unknown Verified 07/13/24 21:03 Septra) tramadol Allergy Mild Unknown Verified 07/13/24 21:03 trimethoprim (From Septra) Allergy Mild Unknown Verified 07/13/24 21:03 Review of Systems Review of Systems: All systems reviewed & are unremarkable except as noted in HPI. All systems reviewed & are unremarkable except as noted in HPI and below Exam Narrative: GENERAL: Well appearing, thin, non-toxic, in no acute distress. HEAD: Normocephalic, atraumatic. EYES: PERRL/EOMI, conjunctiva clear NECK: No meningeal signs RESPIRATORY: Airway patent, respirations nonlabored. Clear to auscultation bilaterally, no rales, rhonchi, wheezing. CARDIOVASCULAR: Regular rate and rhythm without murmurs, rubs, or gallops. MUSCULOSKELETAL: Moves all extremities. No gross deformities. SKIN: Warm, dry, normal color. NEURO: A&O X3. Speech clear. Cranial nerves II-XII grossly intact. Steady gait. No ataxic movements. No focal deficits. Strength 5 of 5 in upper and lower extremities bilaterally. Equal business support liaison strength bilaterally. No pronator drift. PSYCHIATRIC: Appropriate mood and affect. Normal interaction. Course Vital Signs Vital signs: Vital Signs Temperature 98.0 F 07/13/24 20:54 Pulse Rate 82 07/13/24 20:54 Respiratory Rate 20 07/13/24 20:54 Blood Pressure 92/56 L 07/13/24 20:54 Pulse Oximetry 98 07/13/24 20:54 Oxygen Delivery Room Air 07/13/24 20:54 Temperature 98.0 F 07/13/24 20:54 Pulse Rate 62 07/14/24 02:32 Respiratory Rate 16 07/14/24 02:32 Blood Pressure 105/67 07/14/24 02:32 Pulse Oximetry 97 07/14/24 02:32 Oxygen Delivery Room Air 07/13/24 20:54 MDM - Headache MDM Narrative Medical decision making narrative: Patient's headache was not sudden in onset or maximal in severity. There are no focal neurological deficits on exam. Subarachnoid hemorrhage is felt to be unlikely at this time. CT brain performed 07/09 was unremarkable. She denies any new head injury, remains neurologically intact. Do not feel repeat is indicated or appropriate at this time. There is no history of fever and neck is supple on evaluation without meningeal signs. Meningitis is felt to be unlikely. No traumatic history or signs of trauma on evaluation. No vision changes or ocular signs of acute glaucoma. Patient given migraine cocktail in addition to magnesium and dexamethasone. On re-evaluation, she is reporting minimal improvement. I advise that we have given her numerous medications here and that there is not much more that I can give her for a headache. I did advise that narcotic pain medications are not indicated for headaches/migraines. Patient is currently residing at [facility] for substance abuse. Do not feel it is appropriate to give patient any sort of narcotic here. Patient voiced understanding. I do suspect a component of drug-seeking behavior given that this is now her 2nd visit for migraine and denying much improvement. Patient's headache is overall felt to be benign cephalgia and reasonable for further outpatient management. Advised patient to follow with PCP for further evaluation. Will also refer to neurology. Given reasons to return. Patient in agreement with plan. Feels comfortable going home. Discharged in stable condition. Medical Records Attestation: I reviewed the patient's medical records. Discharge Plan Discharge Clinical Impression: Migraine Qualifiers: Migraine type: unspecified Status migrainosus presence: without status migrainosus Intractability: not intractable Qualified Code(s): G43.909 - Migraine, unspecified, not intractable, without status migrainosus Patient Disposition: Other Condition: Stable Instructions: Antibiotic Form, Migraine Headache (ED), Acute Headache (ED) Additional Instructions: Continue Tylenol and ibuprofen as needed for pain. Stay well hydrated. Recommend low light/low stimulus environment, limiting screen time. Get plenty of rest. Follow-up with your primary care doctor and/or Neurology for further evaluation. Return to the ED for worsening or severe pain, unable to keep down food or drink, severe dizziness, passing out, numbness or weakness of arm or leg, or any other symptoms of concern. Patient Language: Greenlandic Follow-up/Referrals: Rufino Rivera MD [Physician] - (NEUROLOGY) PHYSICIAN,INSURANCE UNDERWRITING ASSISTANT [Primary Care Provider] - Time of Disposition: 02:29
[2024-07-14] MEDS: ACETAMINOPHEN 500 MG TABLET 1000 MG PO (00:16)
[2024-07-14] MEDS: SODIUM CHLORIDE 0.9% IV 1,000 ML 999 ML IV CONT (00:21)
[2024-07-14] MEDS: KETOROLAC 30 MG/ML VIAL (*BKC) IV PUSH (00:22)
[2024-07-14] MEDS: METOCLOPRAMIDE HCL INJ 10 MG/2 ML VIAL IV PUSH (00:24)
[2024-07-14] MEDS: diphenhydrAMINE HCl INJ 50 MG/ML VIAL 25 MG IV PUSH (00:27)
[2024-07-14] MEDS: ONDANSETRON INJ 4 MG/2 ML VIAL IV PUSH (00:47)
[2024-07-14] MEDS: MAGNESIUM SULF 2 GM/WATER 50ML 2 GM/50 ML BAG IVPB (00:48)
[2024-07-14] MEDS: dexAMETHasone SOD PHOS INJ 10 MG/ML 1 ML VIAL IV PUSH (02:12)
== END 2024-07-14 02:51 | disposition home or self-care (01) ==
PROVIDERS: Emergency Provider Physician Assistant
DX: G43.909 Migraine, unspecified, not intractable, without status migrainosus (principal)
CPT/HCPCS: 96361; 96365; 96374; 96375; 99284; A9270; J1100; J1200; J1885; J2405; J2765; J3475; J7030